=== PATIENT | male | born 1970 | race Caucasian/White ===

== ENCOUNTER → 2017-03-30 | Outpatient (CLI) | payer MEDICARE ==
--- NOTE | 2017-03-30 07:51 | MR ---
EXAMINATION TYPE: MR knee RT wo con DATE OF EXAM: 03/30/2017 7:25 AM COMPARISON: NONE HISTORY: Rt knee pain, Arthropathy TECHNIQUE: Multiplanar, multisequence imaging of the right knee is performed. FINDINGS: MEDIAL MENISCUS: Anterior and posterior horns are intact without tear. Myxoid degeneration posterior horn medial meniscus. LATERAL MENISCUS: Anterior and posterior horns are intact without tear. CRUCIATE LIGAMENTS: The anterior and posterior cruciate ligaments are intact and unremarkable. COLLATERAL LIGAMENTS: The medial collateral ligament and lateral collateral ligament complex are intact and unremarkable. EXTENSOR MECHANISM: Visualized quadriceps and patellar tendons are intact. EFFUSION: No evidence for joint effusion. POPLITEAL CYST: No popliteal/torres cyst. TRICOMPARTMENT SPACES: The tricompartment joint spaces appear within normal limits. CARTILAGE: The articular cartilage is maintained without abnormal signal or full-thickness defect. BONE MARROW SIGNAL: No focal abnormal marrow signal is appreciated: OTHER: No additional significant abnormality is appreciated. IMPRESSION: 1. Myxoid degeneration posterior horn medial meniscus. Otherwise unremarkable study.
== END | disposition home or self-care (01) ==
LOC: RADMRIMAIN 06:45
PROVIDERS: ATTEND Family Medicine
DX: M23.321 Other meniscus derangements, posterior horn of medial meniscus, right knee (principal)

== ENCOUNTER → 2018-03-23 | Outpatient (CLI) | payer MEDICARE | END | disposition home or self-care (01) | LOC: LABWHC1 16:32 | PROVIDERS: ATTEND Internal Medicine Interventional Cardiology | DX: R07.9 Chest pain, unspecified (principal) | CPT/HCPCS: 36415; 85379 ==

== ENCOUNTER → 2018-09-27 | Outpatient (CLI) | payer MEDICARE ==
--- NOTE | 2018-09-27 15:45 | US ---
EXAMINATION TYPE: US venous doppler duplex LE BI DATE OF EXAM: 09/27/2018 1:34 PM COMPARISON: NONE CLINICAL HISTORY: 47-year-old male I73.9 inter claudication, peripheral vascular disease. SIDE PERFORMED: Bilateral TECHNIQUE: The lower extremity deep venous system is examined utilizing real time linear array sonog kitty with graded compression, doppler sonography and color-flow sonography. FINDINGS: VESSELS IMAGED: External Iliac Vein (EIV) Common Femoral Vein Deep Femoral Vein Greater Saphenous Vein * Femoral Vein Popliteal Vein Small Saphenous Vein * Proximal Calf Veins (* superficial vessels) Right Leg: Negative for DVT Left Leg: Negative for DVT IMPRESSION: No evidence for DVT within the bilateral lower extremities imaged from the groin to the upper calves.
== END | disposition home or self-care (01) ==
LOC: RADUSWWP 12:57
PROVIDERS: ATTEND Family Medicine
DX: I73.9 Peripheral vascular disease, unspecified (principal); R69 Illness, unspecified
CPT/HCPCS: 93923; 93970

== ENCOUNTER 2019-04-14 07:03 | Day surgery (SDC) | payer MEDICARE ==
[2019-04-12 17:28] VITALS: BMI 29.5
[~2019-04-14 07:03] MED LIST: LACTATED RINGERS 1,000 ML IV SCH; LIDOCAINE 1% 20 ML VIAL (10MG/ML) FOR IV START INTRADERMA PRN
[2019-04-14] MEDS ORDERED: LACTATED RINGERS 1,000 ML IV ONE (07:09)
[2019-04-14 07:18] VITALS: TEMP 97.1
[2019-04-14] MEDS ORDERED: LIDOCAINE 1% INJ 10MG/ML (20 ML MDV) ONE (07:30)
[2019-04-14] MEDS ORDERED: PROPOFOL 10 MG/ML 20 ML VIAL IV ONE (07:30)
--- NOTE | 2019-04-14 08:27 | P.PCN ---
Date of Procedure: 04/14/19 Description of Procedure: BRIEF HISTORY: Patient is a 48-year-old pleasant male scheduled for an elective colonoscopy as a part of evaluation of rectal hemorrhage. He denies any prior colonoscopies, change in bowel habits, or abdominal pain. He does chronic narcotic therapy at baseline. He has reported intermittent episodes of hemorrhage over the past few months. PROCEDURE PERFORMED: Colonoscopy with biopsy and polypectomy. PREOPERATIVE DIAGNOSIS: Rectal hemorrhage. ESTIMATED BLOOD LOSS: Minimal. IV sedation per Anesthesia. PROCEDURE: After informed consent was obtained, the patient, was brought into the endoscopy unit. IV sedation was administered by Anesthesia under continuous monitoring. Digital rectal examination was normal. Initially the Olympus CF-190 flexible video colonoscope was then inserted in the rectum, gradually advanced into the cecum without any difficulty. Careful examination was performed as the scope was gradually being withdrawn. Ileocecal valve and the appendiceal orifice were visualized and appeared normal. Prep was excellent. Mucosa of the cecum, ascending colon, transverse colon, descending colon, sigmoid colon, and rectum appeared normal. Diminutive 2 mm sigmoid polyp removed with cold forcep polypectomy. A few small diverticula noted in the sigmoid colon. A 1.5 cm ulcerated area with heaped up edges noted in the rectum suspicious for a stercoral ulcer, biopsies were taken to rule out mass, polyp or other pathology. Retroflexion was performed in the rectum and no lesions were seen. The patient tolerated the procedure well. IMPRESSION: Diminutive sigmoid polyp removed with cold forceps. Sigmoid diverticulosis. Rectal ulcer with heaped up edges, suggestive of stercoral ulcer, biopsied to rule out other etiology. RECOMMENDATIONS: Findings of this examination were discussed with the patient given his . Patient should be on a stool softener. Await pathology from biopsies. Based on pathology patient will either need repeat colonoscopy biopsies are consistent with rectal polyp for further excision or colonoscopy to ensure healing of the ulcer if biopsies are negative
[2019-04-14 08:34] VITALS: BP 90/54; PULSE 58; RESP 18
== END 2019-04-14 09:23 | disposition home or self-care (01) ==
LOC: ORWHC2ENDO 07:03
PROVIDERS: ATTEND Internal Medicine
DX: K63.5 Polyp of colon (principal); K57.30 Diverticulosis of large intestine without perforation or abscess without bleeding; K62.6 Ulcer of anus and rectum; K21.9 Gastro-esophageal reflux disease without esophagitis; I25.10 Atherosclerotic heart disease of native coronary artery without angina pectoris; Z95.1 Presence of aortocoronary bypass graft; Z95.5 Presence of coronary angioplasty implant and graft; I10 Essential (primary) hypertension; F17.210 Nicotine dependence, cigarettes, uncomplicated; E78.5 Hyperlipidemia, unspecified; G62.9 Polyneuropathy, unspecified; G47.33 Obstructive sleep apnea (adult) (pediatric); Z99.89 Dependence on other enabling machines and devices; Z79.01 Long term (current) use of anticoagulants; Z79.82 Long term (current) use of aspirin; Z79.891 Long term (current) use of opiate analgesic; Z79.899 Other long term (current) drug therapy
CPT/HCPCS: 88305; 45380; J2001; J2704

== ENCOUNTER 2020-11-25 18:56 | Inpatient (IN) | payer MEDICARE ==
--- NOTE | 2020-11-25 19:48 | XR ---
EXAMINATION TYPE: XR chest 2V DATE OF EXAM: 11/25/2020 COMPARISON: 06/19/2015 HISTORY: Fever and cough TECHNIQUE: 2 views FINDINGS: Heart is normal. Lungs are clear of infiltrate. There is no heart failure. There are sterna l wires. There are no hilar masses. The bony thorax is intact. IMPRESSION: No active cardiopulmonary disease. No change.
--- NOTE | 2020-11-25 20:01 | ED ---
General Adult HPI - General Chief complaint: Fever Stated complaint: Fever, cough, runny nose Time Seen by Provider: 11/25/20 19:07 Source: patient Mode of arrival: ambulatory Limitations: no limitations - History of Present Illness Initial comments: 49-year-old male history of CAD with multiple myocardial infarctions presented to the ER today for chief complaint of fever, cough x 3 days. Patient states he has had fevers and cough for the past 2 days he states he just doesn't feel well. He denies any chest pain shortness of breath nausea vomiting rashes sore throat or ear pain. Patient denies any vomiting or diarrhea. Patient was concerned possibly of covid 19 presents emergency department for further evaluation. Pt later told nurse that he has two episode of "all bright red blood" - Related Data Home Medications Medication Instructions Recorded Confirmed HYDROcodone/APAP 10-325MG [[place] 1 tab PO TID 10/05/14 11/25/20 10-325] Isosorbide Mononitrate ER [Imdur] 60 mg PO DAILY 10/05/14 11/25/20 Nortriptyline HCl [Pamelor] 50 mg PO HS 10/05/14 11/25/20 Topiramate [Topamax] 100 mg PO BID 10/05/14 11/25/20 lisinopriL [Zestril] 2.5 mg PO DAILY 10/05/14 11/25/20 Aspirin 81 mg PO DAILY 04/12/19 11/25/20 Metoprolol Tartrate [Lopressor] 50 mg PO DAILY@1300 04/12/19 11/25/20 Metoprolol Tartrate [Lopressor] 75 mg PO BID 04/12/19 11/25/20 Morphine Sulfate ER [Ms Contin] 60 mg PO HS 04/12/19 11/25/20 Rivaroxaban [Xarelto] 2.5 mg PO BID 04/12/19 11/25/20 polyethylene glycoL 3350 [Miralax] 17 gm PO DAILY 11/25/20 11/25/20 Previous Rx's Medication Instructions Recorded Atorvastatin [Lipitor] 80 mg PO DAILY #90 tab 10/10/14 Cyclobenzaprine [Flexeril] 10 mg PO HS tab 10/10/14 Nitroglycerin Sl Tabs [Nitrostat] 0.4 mg SUBLINGUAL Q5M PRN #25 tab 10/10/14 Allergies Allergy/AdvReac Type Severity Reaction Status Date / Time No Known Allergies Allergy Verified 11/25/20 21:32 Review of Systems ROS Statement: Those systems with pertinent positive or pertinent negative responses have been documented in the HPI. ROS Other: All systems not noted in ROS Statement are negative. Past Medical History Past Medical History: Coronary Artery Disease (CAD), Chest Pain / Angina, GERD/Reflux, Hyperlipidemia, Hypertension, Myocardial Infarction ([place]), Sleep Apnea/CPAP/BIPAP Additional Past Medical History / Comment(s): Circulation issues in ed[place] legs, neuropathy feet. Chronic back pain. No tx for sleep apnea. [place] x5 Last Myocardial Infarction Date:: 2014 History of Any Multi-Drug Resistant Organisms: None Reported Past Surgical History: Adenoidectomy, Coronary Bypass/CABG, Heart Catheterization, Heart Catheterization With Stent, Hernia Repair, Joint Replacement, Orthopedic Surgery, Tonsillectomy Additional Past Surgical History / Comment(s): left knee surgery x5, left total knee replacement x2. stent x 1 last done in 09/2014, 4 vessel cabg in 2010 Past Anesthesia/Blood Transfusion Reactions: No Reported Reaction Date of Last Stent Placement:: 2014 Past Psychological History: No Psychological Hx Reported Smoking Status: Current every day smoker Past Alcohol Use History: Occasional Past Drug Use History: None Reported - Past Family History Father Family Medical History: Cancer, Myocardial Infarction ([place]) General Exam Limitations: no limitations Course Vital Signs 11/25/20 11/25/20 11/25/20 18:58 19:48 19:50 Temperature 98.7 F Pulse Rate 48 L 88 Respiratory 18 18 18 Rate Blood Pressure 100/62 104/64 O2 Sat by Pulse 96 92 L Oximetry 11/25/20 11/25/20 20:41 21:17 Temperature Pulse Rate 87 Respiratory 18 Rate Blood Pressure 102/80 O2 Sat by Pulse 95 94 L Oximetry Medical Decision Making - Medical Decision Making 49 no present to the ER today for chief complaint fever cough. Patient also endorses later that he had bright red stools patient is on 020. Patient's blood pressure on the lower aspect of normal. However hemoglobin is stable as well as BUN and creatinine. Patient is not tachycardic at this time recommend admission for Protonix, serial CBC and monitoring. Rectal revealed no gross blood, vault was relatively empty leading to a poor sample. And there was evidence of external hemorrhoid that did not appear to be inflammed nor bleeding. Dr Webster accepted admission. - Lab Data Result diagrams: 11/25/20 20:22 11/25/20 20:22 Lab Results 11/25/20 11/25/20 11/25/20 Range/Units 19:44 20:22 20:22 WBC 4.6 (3.8-10.6) k/uL RBC 4.52 (4.30-5.90) m/uL Hgb 14.8 (13.0-17.5) gm/dL Hct 43.9 (39.0-53.0) % MCV 97.0 (80.0-100.0) fL MCH 32.7 (25.0-35.0) pg MCHC 33.7 (31.0-37.0) g/dL RDW 13.2 (11.5-15.5) % Plt Count 140 L (150-450) k/uL MPV 7.0 Neutrophils % 62 % Lymphocytes % 26 % Monocytes % 5 % Eosinophils % 4 % Basophils % 1 % Neutrophils # 2.9 (1.3-7.7) k/uL Lymphocytes # 1.2 (1.0-4.8) k/uL Monocytes # 0.3 (0-1.0) k/uL Eosinophils # 0.2 (0-0.7) k/uL Basophils # 0.0 (0-0.2) k/uL PT 10.0 (9.0-12.0) sec INR 0.9 (<1.2) APTT 25.9 (22.0-30.0) sec Sodium (137-145) mmol/L Potassium (3.5-5.1) mmol/L Chloride (98-107) mmol/L Carbon Dioxide (22-30) mmol/L Anion Gap mmol/L BUN (9-20) mg/dL Creatinine (0.66-1.25) mg/dL Est GFR (CKD-EPI)AfAm (>60 ml/min/1.73 sqM) Est GFR (CKD-EPI)NonAf (>60 ml/min/1.73 sqM) Glucose (74-99) mg/dL Calcium (8.4-10.2) mg/dL Total Bilirubin (0.2-1.3) mg/dL AST (17-59) U/L ALT (4-49) U/L Alkaline Phosphatase (38-126) U/L Total Protein (6.3-8.2) g/dL Albumin (3.5-5.0) g/dL Stool Occult Blood (Negative) Coronavirus (PCR) Not Detected (Not Detectd) 11/25/20 11/25/20 Range/Units 20:22 21:22 WBC (3.8-10.6) k/uL RBC (4.30-5.90) m/uL Hgb (13.0-17.5) gm/dL Hct (39.0-53.0) % MCV (80.0-100.0) fL MCH (25.0-35.0) pg MCHC (31.0-37.0) g/dL RDW (11.5-15.5) % Plt Count (150-450) k/uL MPV Neutrophils % % Lymphocytes % % Monocytes % % Eosinophils % % Basophils % % Neutrophils # (1.3-7.7) k/uL Lymphocytes # (1.0-4.8) k/uL Monocytes # (0-1.0) k/uL Eosinophils # (0-0.7) k/uL Basophils # (0-0.2) k/uL PT (9.0-12.0) sec INR (<1.2) APTT (22.0-30.0) sec Sodium 138 (137-145) mmol/L Potassium 4.1 (3.5-5.1) mmol/L Chloride 110 H (98-107) mmol/L Carbon Dioxide 20 L (22-30) mmol/L Anion Gap 8 mmol/L BUN 13 (9-20) mg/dL Creatinine 0.98 (0.66-1.25) mg/dL Est GFR (CKD-EPI)AfAm >90 (>60 ml/min/1.73 sqM) Est GFR (CKD-EPI)NonAf >90 (>60 ml/min/1.73 sqM) Glucose 92 (74-99) mg/dL Calcium 8.7 (8.4-10.2) mg/dL Total Bilirubin 0.3 (0.2-1.3) mg/dL AST 30 (17-59) U/L ALT 20 (4-49) U/L Alkaline Phosphatase 61 (38-126) U/L Total Protein 6.2 L (6.3-8.2) g/dL Albumin 3.6 (3.5-5.0) g/dL Stool Occult Blood Positive (Negative) Coronavirus (PCR) (Not Detectd) Disposition Clinical Impression: Cough, Fever, GI bleed Disposition: ADMITTED IP TO THIS [facility] Condition: Stable Is patient prescribed a controlled substance at d/c from ED?: No Time of Disposition: 21:38 Decision to Admit Reason: Admit from EC Decision Date: 11/25/20 Decision Time: 21:38
[2020-11-25 20:29] LABS: Basophils % (A) 1 %; Eosinophils # (A) 0.2 k/uL (0-0.7); Eosinophils % (A) 4 %; HCT 43.9 % (39.0-53.0); HGB 14.8 gm/dL (13.0-17.5); Lymphocytes # (A) 1.2 k/uL (1.0-4.8); Lymphocytes % (A) 26 %; MCH 32.7 pg (25.0-35.0); MCHC 33.7 g/dL (31.0-37.0); Monocytes # (A) 0.3 k/uL (0-1.0); Monocytes % (A) 5 %; Neutrophils # (A) 2.9 k/uL (1.3-7.7); Neutrophils % (A) 62 %; Platelet Count 140 k/uL (150-450); RBC 4.52 m/uL (4.30-5.90); RDW 13.2 % (11.5-15.5); WBC 4.6 k/uL (3.8-10.6)
[2020-11-25 20:40] LABS: INR 0.9 (<1.2); Partial Thromboplastin Time 25.9 sec (22.0-30.0)
[2020-11-25 20:46] LABS: ALT 20 U/L (4-49); AST 30 U/L (17-59); African American GFR (CKD) >90 (>60 ml/min/1.73 sqM); Albumin 3.6 g/dL (3.5-5.0); Alkaline Phosphatase 61 U/L (38-126); Anion Gap 8 mmol/L; Blood Urea Nitrogen 13 mg/dL (9-20); Calcium 8.7 mg/dL (8.4-10.2); Carbon Dioxide 20 mmol/L (22-30); Chloride 110 mmol/L (98-107); Glucose 92 mg/dL (74-99); Non-African American GFR(CKD) >90 (>60 ml/min/1.73 sqM); Potassium 4.1 mmol/L (3.5-5.1); Sodium 138 mmol/L (137-145); Total Bilirubin 0.3 mg/dL (0.2-1.3); Total Protein 6.2 g/dL (6.3-8.2)
[2020-11-25] MEDS ORDERED: PANTOPRAZOLE 40 MG/10 ML VIAL IVP STA (20:49)
[2020-11-25] MEDS ORDERED: NALOXONE 0.4 MG/ML 1 ML VIAL IV PRN (21:36)
[2020-11-26] MEDS: HYDROcodone/APAP 10-325MG 1 EACH TAB PO SCH ×4 (02:41→20:23)
[2020-11-26] MEDS: TOPIRAMATE 100 MG TAB PO SCH ×3 (02:41→20:22)
[2020-11-26] MEDS: MORPHINE SULFATE ER 60 MG TABLET PO SCH ×2 (02:41→20:23)
[2020-11-26] MEDS: CYCLOBENZAPRINE 10 MG TAB PO SCH ×2 (02:41→20:22)
[2020-11-26] MEDS: NORTRIPTYLINE 25 MG CAP PO SCH ×2 (02:42→20:22)
--- NOTE | 2020-11-26 02:58 | P.HPIM ---
History of Present Illness H&P Date: 11/25/20 Chief Complaint: rectal bleeding 49 year old male with migrane, chronic back pain , CAD s/p bypass and stents, Hypertension patient coming in for GI bleeding over the past couple days , he reported two episodes of bloody bowel movements , no significant abd pain , no vomiting or nausea, denies any urinary changes, no fever or chills, he takes xarelto , aspirin , but denies any NSAID , and only drinks occasionally. he denies any similar episodes in the past. he does reports subjective weight loss. he had Cscope done in the past, and was told that he had polyps but no malignancy reported. he also reports cough and SOB, he feels congested ,but no phlegm production. no hemoptysis no fever or chills, no chest pain patient has chronic low back pain for which he takes morphine pills and norco in the ED hemoglobin was stable , covid negative, CXR no acute pathology Review of Systems Pertinent positives as noted in HPI. All other systems were reviewed and are negative Past Medical History Past Medical History: Coronary Artery Disease (CAD), Chest Pain / Angina, GERD/Reflux, Hyperlipidemia, Hypertension, Myocardial Infarction ([place]), Sleep Apnea/CPAP/BIPAP Additional Past Medical History / Comment(s): Circulation issues in [place] legs, neuropathy feet. Chronic back pain. No tx for sleep apnea. [place] x5 Last Myocardial Infarction Date:: 2014 History of Any Multi-Drug Resistant Organisms: None Reported Past Surgical History: Adenoidectomy, Coronary Bypass/CABG, Heart Catheterization, Heart Catheterization With Stent, Hernia Repair, Joint Replacement, Orthopedic Surgery, Tonsillectomy Additional Past Surgical History / Comment(s): left knee surgery x5, left total knee replacement x2. stent x 1 last done in 09/2014, 4 vessel cabg in 2010 Past Anesthesia/Blood Transfusion Reactions: No Reported Reaction Date of Last Stent Placement:: 2014 Past Psychological History: No Psychological Hx Reported Smoking Status: Current every day smoker Past Alcohol Use History: Occasional Additional Past Alcohol Use History / Comment(s): Smoking since 2016 now, 1/2 ppd, hx smoked for 27 years, quit for 5 years Past Drug Use History: None Reported - Past Family History Father Family Medical History: Cancer, Myocardial Infarction ([place]) Medications and Allergies Home Medications Medication Instructions Recorded Confirmed Type HYDROcodone/APAP 10-325MG [[place] 1 tab PO TID 10/05/14 11/25/20 History 10-325] Isosorbide Mononitrate ER [Imdur] 60 mg PO DAILY 10/05/14 11/25/20 History Nortriptyline HCl [Pamelor] 50 mg PO HS 10/05/14 11/25/20 History Topiramate [Topamax] 100 mg PO BID 10/05/14 11/25/20 History lisinopriL [Zestril] 2.5 mg PO DAILY 10/05/14 11/25/20 History Atorvastatin [Lipitor] 80 mg PO DAILY #90 tab 10/10/14 11/25/20 Rx Cyclobenzaprine [Flexeril] 10 mg PO HS tab 10/10/14 11/25/20 Rx Nitroglycerin Sl Tabs [Nitrostat] 0.4 mg SUBLINGUAL Q5M PRN #25 tab 10/10/14 11/25/20 Rx Aspirin 81 mg PO DAILY 04/12/19 11/25/20 History Metoprolol Tartrate [Lopressor] 50 mg PO DAILY@1300 04/12/19 11/25/20 History Metoprolol Tartrate [Lopressor] 75 mg PO BID 04/12/19 11/25/20 History Morphine Sulfate ER [Ms Contin] 60 mg PO HS 04/12/19 11/25/20 History Rivaroxaban [Xarelto] 2.5 mg PO BID 04/12/19 11/25/20 History polyethylene glycoL 3350 [Miralax] 17 gm PO DAILY 11/25/20 11/25/20 History Allergies Allergy/AdvReac Type Severity Reaction Status Date / Time No Known Allergies Allergy Verified 11/25/20 21:32 Physical Exam Vitals: Vital Signs Temp Pulse Resp BP Pulse Ox 11/25/20 22:28 98.7 F 87 18 102/80 94 L 11/25/20 21:17 87 18 102/80 94 L 11/25/20 20:41 95 11/25/20 19:50 18 11/25/20 19:48 88 18 104/64 92 L 11/25/20 18:58 98.7 F 48 L 18 100/62 96 Intake and Output 11/25/20 11/25/20 11/26/20 14:59 22:59 06:59 Other: Weight 88.451 kg 88.451 kg Constitutional: No acute distress, conversant, pleasant Eyes: Anicteric sclerae, moist conjunctiva, Pupils equal round reactive to light ENMT: NC/AT Oropharynx clear, no erythema, or exudates Neck: Supple, FROM, no masses, or JVD No carotid bruits No thyromegaly Lungs: Clear to auscultation Clear to percussion Normal respiratory effort, no accessory muscle use Cardiovascular: Heart regular in rate and rhythm, No murmurs, gallops, or rubs No peripheral edema Abdominal: Soft Discomfort to deep palpation, no guarding, rebound or rigidity Abdomen moving with respiration Normoactive bowel sounds No hepatomegaly, No splenomegaly No palpable mass No abdominal wall hernia noted Skin: Normal temperature, tone, texture, turgor No induration No subcutaneous nodules No rash, lesions No ulcers Extremities: No digital cyanosis No clubbing Pedal pulses intact and symmetrical Radial pulses intact and symmetrical No calf tenderness Psychiatric: Alert and oriented to person, place and time Appropriate affect fair judgement Neuro Muscles Strength 5/5 in all 4 extremities Sensation to light touch grossly present throughout Cranial nerves II-XII grossly intact No focal sensory deficits Lymphatics: no palpable cervical or supraclavicular , or inguinal lymph nodes Results CBC & Chem 7: 11/25/20 20:22 11/25/20 20:22 Labs: Abnormal Lab Results - Last 24 Hours (Table) 11/25/20 11/25/20 Range/Units 20:22 20:22 Plt Count 140 L (150-450) k/uL Chloride 110 H (98-107) mmol/L Carbon Dioxide 20 L (22-30) mmol/L Total Protein 6.2 L (6.3-8.2) g/dL Thrombosis Risk Factor Assmnt - Choose All That Apply Any of the Below Risk Factors Present?: Yes Each Factor Represents 1 point: Acute MS, Age 41-60 years, Obesity (BMI >25) Other Risk Factors: No Other congenital or acquired thrombophilia - If yes, enter type in comment: No Thrombosis Risk Factor Assessment Total Risk Factor Score: 3 Thrombosis Risk Factor Assessment Level: Moderate Risk Assessment and Plan Assessment: Rectal bleeding Nothing by mouth PPI IV fluid hydration No NSAIDs GI consult Monitor hemoglobin hold aspirin and Xarelto acute bronchitis CXR negative covid negative zpack 500 mg for 3 days Conditions chronic low back pain Hypertension Hyperlipidemia CHF Coronary artery disease status post stents and bypass resume home meds, xarelto and aspirin on hold full code DVT prophylaxis: mechanical Discussed with: Patient, ER, RN Anticipated length of stay < than [address]: home A total of 65 minutes was spent on the care of this complex patient more than 50% of the time was spent in counseling and care coordination.
[2020-11-26] MEDS: ISOSORBIDE MONONITRATE ER 60 MG TAB.ER.24H PO SCH (08:08)
[2020-11-26] MEDS: PANTOPRAZOLE 40 MG TABLET PO SCH ×2 (08:08→16:36)
[2020-11-26] MEDS: ATORVASTATIN 80 MG TAB PO SCH (08:08)
[2020-11-26] MEDS: METOPROLOL TARTRATE 25 MG TAB PO SCH ×2 (08:08→20:22)
[2020-11-26] MEDS: AZITHROMYCIN 500 MG TAB PO SCH (08:09)
[2020-11-26] MEDS: polyethylene glycoL 3350 17 GM POWD.PACK PO SCH (08:10)
--- NOTE | 2020-11-26 09:04 | P.PN ---
Subjective Progress Note Date: 11/26/20 Feels okay, no further bleeding, no chest pain no abdominal pain no nausea no vomiting no dizziness no shortness of breath Objective - Vital Signs Vital signs: Vital Signs Temp 98.5 F 11/26/20 07:57 Pulse 104 H 11/26/20 07:57 Resp 20 11/26/20 07:57 BP 113/69 11/26/20 07:57 Pulse Ox 94 L 11/26/20 07:57 Intake & Output 11/25/20 11/26/20 11/26/20 18:59 06:59 18:59 Weight 88.451 kg 88.451 kg Other: Voiding Method Toilet - Exam Constitutional: No acute distress, conversant, pleasant Eyes: Anicteric sclerae, moist conjunctiva ENMT: NC/AT,Oropharynx clear, no erythema, exudates Neck:Supple, FROM, no masses Lungs: Clear to auscultation, Clear to percussion, Normal respiratory effort, no accessory muscle use Cardiovascular: Heart regular in rate and rhythm, No murmurs, gallops, or rubs no peripheral edema Abdominal: Soft Nontender, nom distended, no guarding, no rebound or rigidity, Normoactive bowel sounds Skin: Normal temperature Extremities:No digital cyanosis No clubbing, Pedal pulses intact and symmetrical Radial pulses intact and symmetrical Normal gait and station, No calf tenderness Psychiatric: Alert and oriented to person, place and time, Appropriate affect Intact judgement Neuro: Muscles Strength 5/5 in all 4 extremities, Sensation to light touch grossly present throughout, Cranial nerves II-XII grossly intact - Labs CBC & Chem 7: 11/25/20 20:22 11/25/20 20:22 Labs: Abnormal Lab Results - Last 24 Hours (Table) 11/25/20 11/25/20 Range/Units 20:22 20:22 Plt Count 140 L (150-450) k/uL Chloride 110 H (98-107) mmol/L Carbon Dioxide 20 L (22-30) mmol/L Total Protein 6.2 L (6.3-8.2) g/dL Assessment and Plan Plan: Rectal bleeding, unknown etiology Monitor H&H PPI IV fluids No NSAIDs GI consult hold aspirin and Xarelto acute bronchitis , unspecified etiology CXR negative covid negative zpack 500 mg for 3 days Conditions chronic low back pain Hypertension Hyperlipidemia CHF, chronic unspecified if systolic or diastolic Coronary artery disease status post stents and bypass resume home meds, xarelto and aspirin on hold full code DVT prophylaxis: mechanical Discussed with: Patient Anticipated length of stay < than [address]: home once clinically better
[2020-11-26] MEDS: IOPAMIDOL CONTRAST (ORAL USE) VIAL PO PRN ×2 (10:42→11:44)
[2020-11-26] MEDS: NICOTINE 21MG/24HR PATCH TRANSDERM SCH (10:44)
[2020-11-26 11:08] LABS: Basophils % (A) 1 %; Eosinophils # (A) 0.2 k/uL (0-0.7); Eosinophils % (A) 4 %; HCT 46.7 % (39.0-53.0); HGB 15.1 gm/dL (13.0-17.5); Lymphocytes # (A) 1.6 k/uL (1.0-4.8); Lymphocytes % (A) 37 %; MCH 31.7 pg (25.0-35.0); MCHC 32.3 g/dL (31.0-37.0); MCV 97.9 fL (80.0-100.0); Mean Platelet Volume 7.5; Monocytes # (A) 0.2 k/uL (0-1.0); Monocytes % (A) 4 %; Neutrophils # (A) 2.4 k/uL (1.3-7.7); Neutrophils % (A) 52 %; Platelet Count 142 k/uL (150-450); RBC 4.77 m/uL (4.30-5.90); RDW 13.8 % (11.5-15.5); WBC 4.5 k/uL (3.8-10.6)
[2020-11-26] MEDS ORDERED: IOPAMIDOL CONTRAST (ORAL USE) VIAL PO PRN (11:42)
[2020-11-26] MEDS: METOPROLOL TARTRATE 50 MG TAB PO SCH (11:43)
--- NOTE | 2020-11-26 12:53 | CT ---
EXAMINATION TYPE: CT ChestAbdPelvis w con DATE OF EXAM: 11/26/2020 COMPARISON: CTA chest July 2012. HISTORY: Productive cough, possible GI bleed, rectal bleeding CT DLP: 1221.7 mGycm. Automated Exposure Control for Dose Reduction was Utilized. CONTRAST: CT scan of the thorax, abdomen and pelvis is performed with oral and with IV Contrast, patient inject ed with 100 mL of Isovue 300. FINDINGS: LUNGS: Slightly elevated left hemidiaphragm redemonstrated. [id number] underlying emphysematous change redemonstrated. Scattered thin-walled cysts with posterior medial moderate bibasilar scarring . No pleural effusion or pneumothorax MEDIASTINUM: There are no greater than 1 cm hilar or mediastinal lymph nodes. No cardiomegaly or pe ricardial effusion is seen. Coronary artery calcification. Overlying Sternal wires. LIVER/GB: No significant abnormality is appreciated. PANCREAS: No significant abnormality is seen. SPLEEN: No significant abnormality is seen. ADRENALS: No significant abnormality is seen. KIDNEYS: Small nonobstructing bilateral renal calculi. Symmetric cortical medullary uptake and excret ion without hydronephrosis seen bilaterally. For reference there is 7 mm calculus right kidney upper to midpole level axial image 70. BOWEL: Oral contrast reaches level of right colon making evaluation of distal bowel suboptimal. No chatman spicious small or large bowel dilatation. Moderate fecal prominence in the right and transverse colon . GENITAL ORGANS: Normal sized prostate. Scattered bilateral pelvic phleboliths. LYMPH NODES: No greater than 1cm abdominal or pelvic lymph nodes are appreciated. OSSEOUS STRUCTURES: Facet arthropathy lower lumbar spine. OTHER: No significant additional abnormality is seen. IMPRESSION: Moderate colonic fecal stasis. No bowel obstruction.
--- NOTE | 2020-11-26 13:58 | P.CONS ---
History of Present Illness - Reason for Consult Consult date: 11/26/20 GI bleed Requesting physician: Liz Webster - Chief Complaint Cough, fever - History of Present Illness This is a 49-year-old male patient who presented to the emergency room with complaints of a cough and fever 3 days. States he has cough and fatigue since and a fever yesterday greater than 102. He was concerned of possible COVID-19 infection so he presented to the emergency room. He states he's had no sick contacts. He also mentioned when he came into the emergency room and he had rectal bleeding for the last 2 days. Yesterday at 1800 was his last episode of blood in his stool. He states that he had bright red blood per rectum. His past medical history includes coronary artery disease, 1PPD smoker, GERD, hyperlipidemia, hypertension, myocardial infarction, and sleep apnea. He does take Xarelto for his heart disease, last dose taken on 11/25/2020. He also has a history of rectal bleeding in the past and underwent colonoscopy in April 2019 with with findings that include a sigmoid polyp with polypectomy, sigmoid diverticulosis, and a rectal ulcer with heaped up edges suggestive of stercotal ulcer. Biopsy results came back as a sigmoid colon polyp hyperplastic polyp. Rectal ulcer adenoma with high-grade dysplasia versus superficial invasive adenocarcinoma with rebiopsy suggested. The patient had follow up with PCP Dr. Castro and was informed of biopsies and need for follow up colonosocopy. However the patient never followed up for an appointment or repeat colonoscopy and stated he did not follow up because of insurance. Admission labs included WBC 4.6, hemoglobin 14.8, hematocrit 43.9, platelets 240,000, INR 0.9. Total bilirubin 0.3, alkaline phosphatase 61, AST 30, ALT 20. Positive stool occult blood. COVID-19 PCR negative. Review of Systems REVIEW OF SYSTEMS: CARDIOPULMONARY: No chest pain or shortness of breath. Cough. Gastrointestinal: Abdominal pain, cramping. Positive melena, bright red blood per rectum. No nausea or vomiting. No hematemesis, coffee-ground emesis. GENITOURINARY: No dysuria or hematuria. MUSCULOSKELETAL: Reports normal range of motion., Joint pain. SKIN: No rashes. No jaundice. ENDOCRINE: Unremarkable. PSYCHIATRIC: Unremarkable. NEUROLOGY: No change in mental status. Denies dizziness, headache. ENT: Vision unremarkable. CONSTITUTIONAL: No recent weight loss. Positive fever. Past Medical History Past Medical History: Coronary Artery Disease (CAD), Chest Pain / Angina, GERD/Reflux, Hyperlipidemia, Hypertension, Myocardial Infarction ([place]), Sleep Apnea/CPAP/BIPAP Additional Past Medical History / Comment(s): Circulation issues in [place] legs, neuropathy feet. Chronic back pain. No tx for sleep apnea. [place] x5 Last Myocardial Infarction Date:: 2014 History of Any Multi-Drug Resistant Organisms: None Reported Past Surgical History: Adenoidectomy, Coronary Bypass/CABG, Heart Catheterization, Heart Catheterization With Stent, Hernia Repair, Joint Rep lacement, Orthopedic Surgery, Tonsillectomy Additional Past Surgical History / Comment(s): left knee surgery x5, left total knee replacement x2. stent x 1 last done in 09/2014, 4 vessel cabg in 2010 Past Anesthesia/Blood Transfusion Reactions: No Reported Reaction Date of Last Stent Placement:: 2014 Past Psychological History: No Psychological Hx Reported Smoking Status: Current every day smoker Past Alcohol Use History: Occasional Additional Past Alcohol Use History / Comment(s): Smoking since 2016 now, 1/2 ppd, hx smoked for 27 years, quit for 5 years Past Drug Use History: None Reported - Past Family History Father Family Medical History: Cancer, Myocardial Infarction ([place]) Medications and Allergies Home Medications Medication Instructions Recorded Confirmed Type HYDROcodone/APAP 10-325MG [[place] 1 tab PO TID 10/05/14 11/25/20 History 10-325] Isosorbide Mononitrate ER [Imdur] 60 mg PO DAILY 10/05/14 11/25/20 History Nortriptyline HCl [Pamelor] 50 mg PO HS 10/05/14 11/25/20 History Topiramate [Topamax] 100 mg PO BID 10/05/14 11/25/20 History lisinopriL [Zestril] 2.5 mg PO DAILY 10/05/14 11/25/20 History Atorvastatin [Lipitor] 80 mg PO DAILY #90 tab 10/10/14 11/25/20 Rx Cyclobenzaprine [Flexeril] 10 mg PO HS tab 10/10/14 11/25/20 Rx Nitroglycerin Sl Tabs [Nitrostat] 0.4 mg SUBLINGUAL Q5M PRN #25 tab 10/10/14 11/25/20 Rx Aspirin 81 mg PO DAILY 04/12/19 11/25/20 History Metoprolol Tartrate [Lopressor] 50 mg PO DAILY@1300 04/12/19 11/25/20 History Metoprolol Tartrate [Lopressor] 75 mg PO BID 04/12/19 11/25/20 History Morphine Sulfate ER [Ms Contin] 60 mg PO HS 04/12/19 11/25/20 History Rivaroxaban [Xarelto] 2.5 mg PO BID 04/12/19 11/25/20 History polyethylene glycoL 3350 [Miralax] 17 gm PO DAILY 11/25/20 11/25/20 History Allergies Allergy/AdvReac Type Severity Reaction Status Date / Time No Known Allergies Allergy Verified 11/25/20 21:32 Physical Exam Vitals: Vital Signs Temp Pulse Pulse Resp BP BP Pulse Ox 11/26/20 07:57 98.5 F 104 H 20 113/69 94 L 11/26/20 07:45 20 11/26/20 02:25 99.0 F 100 18 145/87 97 11/25/20 23:18 18 11/25/20 23:10 98.5 F 75 18 114/74 100 11/25/20 22:28 98.7 F 87 18 102/80 94 L 11/25/20 21:17 87 18 102/80 94 L 11/25/20 20:41 95 11/25/20 19:50 18 11/25/20 19:48 88 18 104/64 92 L 11/25/20 18:58 98.7 F 48 L 18 100/62 96 Intake and Output 11/25/20 11/26/20 11/26/20 22:59 06:59 14:59 Other: Voiding Method Toilet Toilet Weight 88.451 kg 88.451 kg General appearance: The patient is alert, oriented, appears in no acute distress. HET: Head is normocephalic and atraumatic. Neck: Supple without lymphadenopathy. Trachea midline. Heart: S1 S2. Regular rate and rhythm. Lungs: Clear to auscultation Abdomen: Soft, tenderness in right lower quadrant, nondistended with bowel sounds. Guarding or rigidity. Extremities: Normal skin color and turgor. Pedal edema. Neurological: No focal deficits. Alert and oriented 3. Results CBC & Chem 7: 11/26/20 10:48 11/25/20 20:22 Labs: Abnormal Lab Results - Last 24 Hours (Table) 11/25/20 11/25/20 11/26/20 Range/Units 20:22 20:22 10:48 Plt Count 140 L 142 L (150-450) k/uL Chloride 110 H (98-107) mmol/L Carbon Dioxide 20 L (22-30) mmol/L Total Protein 6.2 L (6.3-8.2) g/dL CT scan - abdomen: report reviewed (CT chest abdomen and pelvis impression states moderate colonic fecal stasis. No bowel obstruction.) Assessment and Plan (1) Bright red blood per rectum Narrative/Plan: 49-year-old male patient who presented to the emergency department with complaints of cough and fever for 3 days duration. He also did and when he came in that he had 2 episodes of premature apply per rectum, last one being yesterday around X o'clock p.m. He states he did get some mild abdominal pain and cramping episodes of bleeding. He had a previous colonoscopy in April 2019 per rectal hemorrhage, with findings of a sigmoid polyp, sigmoid diverticulosis, and rectal ulcer suggestive of stercoral ulcer. Biopsy results of sigmoid colon polyp came back as a hyperplastic polyp. Rectal ulcer came back as adenoma with high-grade dysplasia versus superficial invasive adenocarcinoma with rebiopsy suggested. The patient had a follow-up appointment mentation to repeat the colonoscopy and biopsy, however patient never had any further follow-up appointment and no repeat colonoscopy. CT of the chest abdomen and pelvis showed moderate colonic fecal stasis. No bowel obstruction. Possible etiologies of bleeding could again be from rectal ulcer, AVM, articular bleed, or other possible etiology also need to consider neoplasm as the differential. Recommend repeat colonoscopy, patient will be a bowel prep and be scheduled tomorrow. Current Visit: Yes Status: Acute Code(s): K62.5 - HEMORRHAGE OF ANUS AND RECTUM SNOMED Code(s): 08559107 (2) Positive fecal occult blood test Current Visit: Yes Status: Acute Code(s): R19.5 - OTHER FECAL ABNORMALITIES SNOMED Code(s): 53283328 (3) Cough Current Visit: Yes Status: Acute Code(s): R05 - COUGH SNOMED Code(s): 99275837 (4) Fever Current Visit: Yes Status: Acute Code(s): R50.9 - FEVER, UNSPECIFIED SNOMED Code(s): 000608187 Plan: 1. Continue symptomatic and supportive care 2. CT of chest abdomen and pelvis ordered and reviewed 3. Clear liquid diet, nothing by mouth after midnight 4. Bowel prep this evening 5. Patient will be scheduled for a colonoscopy tomorrow, discussed with patient details and risks of procedure, he verbalized understanding and agreeable to proceed with colonoscopy. 6. Repeat daily CBC, transfuse for hemoglobin less than 7 7. Continue daily bowel regimen for constipation Thank you for this consultation, we will continue to follow Dr. Epperson I agree with the dictator's note, documented as a scribe by Jocelin ALVARENGA .
[2020-11-26] MEDS ORDERED: bisacodyL 5 MG TABLET.DR PO STA (14:36)
[2020-11-26] MEDS ORDERED: PEG 3350-NA SULF,BICARB,CL/KCL 4,000 ML BOTTLE PO ONE (17:00)
[2020-11-26] MEDS: LACTATED RINGERS 1,000 ML IV SCH (20:12)
[2020-11-27] MEDS ORDERED: ONDANSETRON 4 MG/2 ML VIAL IVP PRN (07:00)
[2020-11-27] MEDS: METOPROLOL TARTRATE 25 MG TAB PO SCH ×2 (07:08→20:51)
[2020-11-27] MEDS: ATORVASTATIN 80 MG TAB PO SCH (07:09)
[2020-11-27] MEDS: AZITHROMYCIN 500 MG TAB PO SCH (07:09)
[2020-11-27] MEDS: NICOTINE 21MG/24HR PATCH TRANSDERM SCH (07:10)
[2020-11-27] MEDS: polyethylene glycoL 3350 17 GM POWD.PACK PO SCH (07:10)
[2020-11-27] MEDS: ISOSORBIDE MONONITRATE ER 60 MG TAB.ER.24H PO SCH (07:10)
[2020-11-27] MEDS: PANTOPRAZOLE 40 MG TABLET PO SCH ×2 (07:10→16:53)
[2020-11-27] MEDS: TOPIRAMATE 100 MG TAB PO SCH ×2 (07:10→20:50)
[2020-11-27] MEDS: HYDROcodone/APAP 10-325MG 1 EACH TAB PO SCH ×3 (07:10→20:50)
[2020-11-27 09:46] LABS: Basophils # (A) 0.02 X 10*3/uL (0.00-0.10); Basophils % (A) 0.3 %; Eosinophils # (A) 0.08 X 10*3/uL (0.04-0.35); Eosinophils % (A) 1.4 %; HCT 45.9 % (39.6-50.0); Lymphocytes # (A) 1.96 X 10*3/uL (0.90-5.00); Lymphocytes % (A) 33.3 %; MCH 31.9 pg (27.0-32.0); MCHC 32.7 g/dL (32.0-37.0); MCV 97.7 fL (80.0-97.0); Mean Platelet Volume 9.7 fL (9.5-12.2); Monocytes # (A) 0.52 X 10*3/uL (0.20-1.00); Monocytes % (A) 8.8 %; Neutrophils # (A) 3.29 X 10*3/uL (1.80-7.70); Neutrophils % (A) 55.9 %; Platelet Count 145 X 10*3/uL (140-440); RDW 13.8 % (11.5-14.5); WBC 5.89 X 10*3/uL (4.50-10.00)
--- NOTE | 2020-11-27 11:29 | P.PN ---
<David Canales - Last Filed: 11/27/20 10:53> Subjective Progress Note Date: 11/27/20 Hospital course: Patient is a 49-year-old male with a past medical history of CAD with previous RI status post quadruple bypass and stent placement on Xarelto and aspirin, hypertension, hyperlipidemia, and obstructive sleep apnea. He presented to the hospital on 11/25/20 with a chief complaint of rectal bleeding. CT abdomen and pelvis revealed moderate colonic fecal stasis with no bowel obstruction. Hemoglobin has been stable throughout admission with initial hemoglobin of 14.8, repeat 15.1, and currently 15.0. CBC, CMP, and coagulation profille showing no significant abnormalities. Stool occult was positive and Covid PCR is negative. Xarelto and aspirin were held. Patient continues to have episodes of hematochezia. He is scheduled to undergo colonoscopy this afternoon at 1 PM. Physical exam: Patient seen and fully evaluated at the bedside this morning. He reports mild abdominal discomfort left upper epigastric and right upper quadrants. States he had another large episode of hematochezia overnight. He denies having any chest pain, palpitations, shortness of breath, or experiencing any nausea or vomiting. Patient scheduled to undergo colonoscopy later this afternoon. General: non toxic, no distress, appears at stated age Derm: warm, dry Head: atraumatic, normocephalic, symmetric Eyes: EOMI, no lid lag, anicteric sclera Mouth: no lip lesion, mucus membranes moist Cardiovascular: S1S2 reg, no murmur, gallop, or rub. Positive posterior tibial pulses bilaterally, cap refill less than 2 seconds. Lungs: Respirations even, regular, and unlabored on room air. Lungs CTA bilaterally with the exception of mild expiratory wheezes. No accessory muscle use. Abdominal: soft, nontender to palpation, no guarding, no appreciable organomegaly Ext: no gross muscle atrophy, no edema, no contractures Neuro: CN II-XI grossly intact, no focal neuro deficits Psych: Alert, oriented, appropriate affect Plan of care: Lower GI bleed -Gastroenterology following with plans for colonoscopy this afternoon. -CT abdomen and pelvis revealed moderate colonic fecal stasis with no bowel obstruction -Monitor H&H every 6 hours x 4 and transfuse as needed for hemoglobin less than 7. Hemoglobin has been stable currently 15.0. -Protonix 40 mg twice daily. -Nothing by mouth until cleared by GI. -SCDs for DVT prophylaxis. Bronchitis with cough and fever, likely acute exacerbation of chronic bronchitis with long-standing history of an current use of cigarette smoking -Chest x-ray negative for acute cardiopulmonary process. -Azithromycin 500 mg 3 doses Nicotine dependence -Nicotine patch -Continued education and encouragement on the benefits of smoking cessation and the risks of continued use. Hypertension -Monitor vital signs and continue daily medication regimen with Imdur, lisinopril, and metoprolol. Hyperlipidemia -Continue daily medication regimen with atorvastatin. History of CAD status post quadruple bypass and stent placement -Holding aspirin and Xarelto secondary to GI bleed. -Continue daily medication regimen with atorvastatin, Imdur, lisinopril, and metoprolol. CODE STATUS: Full code DVT prophylaxis: SCDs Discussed with: Patient and RN Anticipated discharge date:Clinical course to determine Anticipated discharge place: Home A total of 45 minutes was spent on the care of this complex patient more than 50% of the time was spent in counseling and care coordination. Objective - Vital Signs Vital signs: Vital Signs Temp 98.4 F 11/27/20 08:00 Pulse 107 H 11/27/20 08:00 Resp 18 11/27/20 08:00 BP 112/71 11/27/20 08:00 Pulse Ox 90 L 11/27/20 08:00 Intake & Output 11/26/20 11/27/20 11/27/20 18:59 06:59 18:59 Other: Voiding Method Toilet Toilet Toilet # Voids 3 # Bowel Movements 2 - Labs CBC & Chem 7: 11/27/20 05:48 11/25/20 20:22 Labs: Abnormal Lab Results - Last 24 Hours (Table) 11/26/20 11/27/20 Range/Units 10:48 05:48 MCV 97.7 H (80.0-97.0) fL Plt Count 142 L (150-450) k/uL <Opal Montelongo - Last Filed: 11/27/20 13:34> Objective - Vital Signs Vital signs: Vital Signs Temp 98.4 F 11/27/20 08:00 Pulse 107 H 11/27/20 08:00 Resp 18 11/27/20 08:00 BP 112/71 11/27/20 08:00 Pulse Ox 90 L 11/27/20 08:00 Intake & Output 11/26/20 11/27/20 11/27/20 18:59 06:59 18:59 Intake Total 400 Balance 400 Intake: IV 400 Other: Voiding Method Toilet Toilet Toilet # Voids 3 # Bowel Movements 2 - Labs CBC & Chem 7: 11/27/20 05:48 11/25/20 20:22 Labs: Abnormal Lab Results - Last 24 Hours (Table) 11/27/20 Range/Units 05:48 MCV 97.7 H (80.0-97.0) fL Assessment and Plan Assessment: I discussed the care with David Canales NP and reviewed the findings and plan as documented in the note above. I did not physically speak with or examine the patient on this date.
[2020-11-27] MEDS ORDERED: PROPOFOL 10 MG/ML 20 ML VIAL IV ONE (12:56)
[2020-11-27] MEDS ORDERED: LIDOCAINE 1% INJ 10MG/ML (20 ML MDV) ONE (12:56)
[2020-11-27] MEDS ORDERED: PHENYLEPHRINE-0.9% NACL SYG 1,000 MCG/10 ML SYRINGE ONE (12:56)
[2020-11-27] MEDS ORDERED: LACTATED RINGERS 1,000 ML IV ONE (13:00)
[2020-11-27 13:38] LABS: Albumin 4.1 g/dL (3.80-4.90); Albumin/Globulin Ratio 1.86 (1.60-3.17); Anion Gap 10.3 mmol/L (4.00-12.00); Calcium 8.4 mg/dL (8.7-10.3); Carbon Dioxide 21.7 mmol/L (21.6-31.8); Globulin 2.2 g/dL (1.6-3.3); Potassium 3.9 mmol/L (3.5-5.5); Total Bilirubin 0.3 mg/dL (0.3-1.2); Total Protein 6.3 g/dL (6.2-8.2)
[2020-11-27] MEDS: METOPROLOL TARTRATE 50 MG TAB PO SCH (13:54)
--- NOTE | 2020-11-27 14:22 | P.GSCN ---
History of Present Illness Consult date: 11/27/20 History of present illness: This is a 49-year-old male who presented to the hospital with a chief complaint of fatigue and cough. He also had bright red bleeding per rectum. 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 He underwent colonoscopy earlier today which showed a ulcerated lesion 3 cm from the anal verge with biopsy and tattooing. Patient did undergo CT chest abdomen and pelvis which did not show any signs concerning for metastasis at this time. Past Medical History Past Medical History: Coronary Artery Disease (CAD), Chest Pain / Angina, GERD/Reflux, Hyperlipidemia, Hypertension, Myocardial Infarction ([place]), Sleep Apnea/CPAP/BIPAP Additional Past Medical History / Comment(s): Circulation issues in [place] legs, neuropathy feet. Chronic back pain. No tx for sleep apnea. [place] x5 Last Myocardial Infarction Date:: 2014 History of Any Multi-Drug Resistant Organisms: None Reported Past Surgical History: Adenoidectomy, Coronary Bypass/CABG, Heart Catheterization, Heart Catheterization With Stent, Hernia Repair, Joint Replacement, Orthopedic Surgery, Tonsillectomy Additional Past Surgical History / Comment(s): left knee surgery x5, left total knee replacement x2. stent x 1 last done in 09/2014, 4 vessel cabg in 2010 Past Anesthesia/Blood Transfusion Reactions: No Reported Reaction Date of Last Stent Placement:: 2014 Past Psychological History: No Psychological Hx Reported Smoking Status: Current every day smoker Past Alcohol Use History: Occasional Additional Past Alcohol Use History / Comment(s): Smoking since 2016 now, 1/2 ppd, hx smoked for 27 years, quit for 5 years Past Drug Use History: None Reported - Past Family History Father Family Medical History: Cancer, Myocardial Infarction ([place]) Medications and Allergies Home Medications Medication Instructions Recorded Confirmed Type HYDROcodone/APAP 10-325MG [[place] 1 tab PO TID 10/05/14 11/25/20 History 10-325] Isosorbide Mononitrate ER [Imdur] 60 mg PO DAILY 10/05/14 11/25/20 History Nortriptyline HCl [Pamelor] 50 mg PO HS 10/05/14 11/25/20 History Topiramate [Topamax] 100 mg PO BID 10/05/14 11/25/20 History lisinopriL [Zestril] 2.5 mg PO DAILY 10/05/14 11/25/20 History Atorvastatin [Lipitor] 80 mg PO DAILY #90 tab 10/10/14 11/25/20 Rx Cyclobenzaprine [Flexeril] 10 mg PO HS tab 10/10/14 11/25/20 Rx Nitroglycerin Sl Tabs [Nitrostat] 0.4 mg SUBLINGUAL Q5M PRN #25 tab 10/10/14 11/25/20 Rx Aspirin 81 mg PO DAILY 04/12/19 11/25/20 History Metoprolol Tartrate [Lopressor] 50 mg PO DAILY@1300 04/12/19 11/25/20 History Metoprolol Tartrate [Lopressor] 75 mg PO BID 04/12/19 11/25/20 History Morphine Sulfate ER [Ms Contin] 60 mg PO HS 04/12/19 11/25/20 History Rivaroxaban [Xarelto] 2.5 mg PO BID 04/12/19 11/25/20 History polyethylene glycoL 3350 [Miralax] 17 gm PO DAILY 11/25/20 11/25/20 History Allergies Allergy/AdvReac Type Severity Reaction Status Date / Time No Known Allergies Allergy Verified 11/25/20 21:32 Surgical - Exam Osteopathic Statement: *. No significant issues noted on an osteopathic st ructural exam other than those noted in the History and Physical/Consult. Vital Signs Temp Pulse Resp BP Pulse Ox 98.7 F 48 L 18 100/62 96 11/25/20 18:58 11/25/20 18:58 11/25/20 18:58 11/25/20 18:58 11/25/20 18:58 - General well developed, well nourished, no distress - Eyes PERRL - Neck no masses, trachea midline - Respiratory normal expansion, normal respiratory effort - Abdomen Abdomen: soft, non tender - Psychiatric oriented to time, oriented to person, oriented to place Results - Labs 11/27/20 05:48 11/27/20 05:48 Abnormal Lab Results - Last 24 Hours (Table) 11/27/20 11/27/20 Range/Units 05:48 05:48 MCV 97.7 H (80.0-97.0) fL Glucose 129 H (70-110) mg/dL Calcium 8.4 L (8.7-10.3) mg/dL Diabetes panel 11/27/20 Range/Units 05:48 Sodium 139 (135-145) mmol/L Potassium 3.9 (3.5-5.5) mmol/L Chloride 107 (96-109) mmol/L Carbon Dioxide 21.7 (21.6-31.8) mmol/L BUN 15.0 (9.0-27.0) mg/dL Creatinine 1.0 (0.6-1.5) mg/dL Glucose 129 H (70-110) mg/dL Calcium 8.4 L (8.7-10.3) mg/dL AST 29 (14-35) U/L ALT 28 (10-49) U/L Alkaline Phosphatase 53 (41-126) U/L Total Protein 6.3 (6.2-8.2) g/dL Albumin 4.10 (3.80-4.90) g/dL Calcium panel 11/27/20 Range/Units 05:48 Calcium 8.4 L (8.7-10.3) mg/dL Albumin 4.10 (3.80-4.90) g/dL Pituitary panel 11/27/20 Range/Units 05:48 Sodium 139 (135-145) mmol/L Potassium 3.9 (3.5-5.5) mmol/L Chloride 107 (96-109) mmol/L Carbon Dioxide 21.7 (21.6-31.8) mmol/L BUN 15.0 (9.0-27.0) mg/dL Creatinine 1.0 (0.6-1.5) mg/dL Glucose 129 H (70-110) mg/dL Calcium 8.4 L (8.7-10.3) mg/dL Adrenal panel 11/27/20 Range/Units 05:48 Sodium 139 (135-145) mmol/L Potassium 3.9 (3.5-5.5) mmol/L Chloride 107 (96-109) mmol/L Carbon Dioxide 21.7 (21.6-31.8) mmol/L BUN 15.0 (9.0-27.0) mg/dL Creatinine 1.0 (0.6-1.5) mg/dL Glucose 129 H (70-110) mg/dL Calcium 8.4 L (8.7-10.3) mg/dL Total Bilirubin 0.3 (0.3-1.2) mg/dL AST 29 (14-35) U/L ALT 28 (10-49) U/L Alkaline Phosphatase 53 (41-126) U/L Total Protein 6.3 (6.2-8.2) g/dL Albumin 4.10 (3.80-4.90) g/dL Assessment and Plan Assessment: Ulcerated lesion in rectum 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 We will await pathology. Patient will likely need a further metastatic workup with CEA level, EUS or MRI of the pelvis and possible PET/CT pending the pathology report. This can all be done as an outpatient. Patient can follow-up with me as an outpatient. Further recommendations to follow pathology report and staging if it is adenocarcinoma.
--- NOTE | 2020-11-27 14:22 | P.PCN ---
Date of Procedure: 11/27/20 Description of Procedure: BRIEF HISTORY: Patient is a 49-year-old male patient who presented to the emergency room with complaints of a cough and fever 3 days. States he has cough and fatigue since and a fever. He was concerned of possible COVID-19 infection so he presented to the emergency room. He states he's had no sick contacts. He also mentioned when he came into the emergency room and he had rectal bleeding for the last 2 days. Yesterday at 1800 was his last episode of blood in his stool. He states that he had bright red blood per rectum. His past medical history includes coronary artery disease, 1PPD smoker, GERD, hyperlipidemia, hypertension, myocardial infarction, and sleep apnea. He does take Xarelto for his heart disease, last dose taken on 11/25/2020. He also has a history of rectal bleeding in the past and underwent colonoscopy in April 2019 with findings of sigmoid polyp removed with polypectomy, diverticulosis and a 1.5 cm rectal ulcer with heaped edges with biopsies showing high-grade dysplasia versus superficial invasive adenocarcinoma with rebiopsy suggested. Patient was seen in the clinic informed of results however failed follow-up for repeat colonoscopy as he was concerned over insurance coverage for the procedure. PROCEDURE PERFORMED: Colonoscopy with biopsy and and tattoo. PREOPERATIVE DIAGNOSIS: Hemorrhage of the anus and rectum. ESTIMATED BLOOD LOSS: Minimal. IV sedation per Anesthesia. PROCEDURE: After informed consent was obtained, the patient, was brought into the endoscopy unit. IV sedation was administered by Anesthesia under continuous monitoring. Digital rectal examination was normal. Initially the Olympus CF-190 flexible video colonoscope was then inserted in the rectum, gradually advanced into the cecum without any difficulty. Careful examination was performed as the scope was gradually being withdrawn. Ileocecal valve and the appendiceal orifice were visualized and appeared normal. Prep was excellent. Mucosa of the cecum, ascending colon, transverse colon, descending colon, sigmoid colon, and rectum appeared normal with a few scattered diverticula noted in the sigmoid colon. A 3 mm sessile transverse colon polyp was removed with cold snare polypectomy. In the rectum there was redemonstration of an approximately 2-1/2 cm rectal ulcer with heaped up edges and abnormal appearance located from approximately 3 cm from the anal verge to 6 cm from the anal verge with multiple biopsies taken and tattoo placed both proximal and distal to the lesion with 2 mL injected just proximal to the mass and 2 mL just distal to the mass. Retroflexion was performed in the rectum and no lesions were seen. The patient tolerated the procedure well. IMPRESSION: Ulcerated distal rectal mass, similar in appearance to prior endoscopic evaluation, with biopsies taken of the mass and tattoo placed distal and proximal to the mass. Small transverse colon polyp removed with cold snare polypectomy. Mild sigmoid diverticulosis. RECOMMENDATIONS: Findings of this examination were discussed with the patient. Okay to resume clear liquid diet. Await pathology from biopsies. Surgical service has been consulted and informed of the results. Hematology/oncology will also be consulted. Computed tomography scan reviewed with no evidence of metastatic disease. Further recommendations based on clinical course, findings from pathology.
[2020-11-27] MEDS: LACTATED RINGERS 1,000 ML IV SCH (16:53)
[2020-11-27] MEDS: NORTRIPTYLINE 25 MG CAP PO SCH (20:50)
[2020-11-27] MEDS: MORPHINE SULFATE ER 60 MG TABLET PO SCH (20:50)
[2020-11-27] MEDS: CYCLOBENZAPRINE 10 MG TAB PO SCH (20:50)
[2020-11-28 02:12] VITALS: RESP 18
[2020-11-28] MEDS: ATORVASTATIN 80 MG TAB PO SCH (07:43)
[2020-11-28] MEDS: ISOSORBIDE MONONITRATE ER 60 MG TAB.ER.24H PO SCH (07:43)
[2020-11-28] MEDS: METOPROLOL TARTRATE 25 MG TAB PO SCH (07:44)
[2020-11-28] MEDS: PANTOPRAZOLE 40 MG TABLET PO SCH (07:44)
[2020-11-28] MEDS: HYDROcodone/APAP 10-325MG 1 EACH TAB PO SCH ×2 (07:44→15:24)
[2020-11-28] MEDS: NICOTINE 21MG/24HR PATCH TRANSDERM SCH (07:44)
[2020-11-28] MEDS: polyethylene glycoL 3350 17 GM POWD.PACK PO SCH (07:45)
[2020-11-28] MEDS: AZITHROMYCIN 500 MG TAB PO SCH (07:45)
[2020-11-28] MEDS: TOPIRAMATE 100 MG TAB PO SCH (07:45)
[2020-11-28] MEDS ORDERED: HYDROCORTISONE 2.5% RECTAL CREAM 30 GM TUBE RECTAL SCH (09:15)
[2020-11-28 09:59] LABS: HCT 46.5 % (39.6-50.0); HGB 14.9 g/dL (13.0-17.0); MCH 31.8 pg (27.0-32.0); MCV 99.1 fL (80.0-97.0); Mean Platelet Volume 9.9 fL (9.5-12.2); Platelet Count 160 X 10*3/uL (140-440); RBC 4.69 X 10*6/uL (4.40-5.60); RDW 13.9 % (11.5-14.5); WBC 7.08 X 10*3/uL (4.50-10.00)
[2020-11-28 10:39] LABS: Anion Gap 9.8 mmol/L (4.00-12.00); Calcium 8.4 mg/dL (8.7-10.3); Carbon Dioxide 20.2 mmol/L (21.6-31.8); Potassium 4.2 mmol/L (3.5-5.5)
--- NOTE | 2020-11-28 11:20 | P.DS ---
<David Canales - Last Filed: 11/28/20 11:20> Providers Expected date of discharge: 11/28/20 Hospital Course: Discharge Diagnosis: Lower GI bleed with ulcerated distal rectal mass Bronchitis with cough and fever, likely acute exacerbation of chronic bronchitis with long-standing history of an current use of cigarette smoking Nicotine dependence Hypertension Hyperlipidemia History of CAD status post quadruple bypass and stent placement Hospital Course: Patient is a 49-year-old male with a past medical history of CAD with previous PA status post quadruple bypass and stent placement on Xarelto and aspirin, hypertension, hyperlipidemia, and obstructive sleep apnea. He presented to the hospital on 11/25/20 with a chief complaint of rectal bleeding. CT abdomen and pelvis revealed moderate colonic fecal stasis with no bowel obstruction. Hemoglobin has been stable throughout admission with initial hemoglobin of 14.8, repeat 15.1, and currently 15.0. CBC, CMP, and coagulation profille showing no significant abnormalities. Stool occult was positive and Covid PCR is negative. Xarelto and aspirin were held. Patient continues to have episodes of hematochezia. Patient underwent colonoscopy with Dr. Epperson which revealed ulcerated distal rectal mass which was similar in appearance to prior endoscopic evaluation, biopsies were taken of the mass and tattoo placed distal and proximal to the mass, small transverse colon polyp was removed, and patient was also found to have mild sigmoid diverticulosis. Surgical services and hematology/oncology was then consulted. General surgery team assessed patient and we are awaiting pathology reports. Patient recommended to have further metastatic workup with CEA level, EUS or MRI of the pelvis and possible PET/CT pending on pathology report. Patient to follow-up outpatient in office with Dr. Colin and Dr. Epperson as discussed. Patient also educated on the importance of continued smoking cessation and risks of continued use. Physical exam: Patient seen and fully evaluated at the bedside this morning. He reports having minimal abdominal discomfort left upper epigastric and right upper quadrants. States he again had another large episode of hematochezia overnight. Hemoglobin has remained stable and currently 14.9. He denies having any chest pain, palpitations, shortness of breath, or experiencing any nausea or vomiting. General: non toxic, no distress, appears at stated age Derm: warm, dry Head: atraumatic, normocephalic, symmetric Eyes: EOMI, no lid lag, anicteric sclera Mouth: no lip lesion, mucus membranes moist Cardiovascular: S1S2 reg, no murmur, gallop, or rub. Positive posterior tibial pulses bilaterally, cap refill less than 2 seconds. Lungs: Respirations even, regular, and unlabored on room air. Lungs CTA bilaterally with the exception of mild expiratory wheezes. No accessory muscle use. Abdominal: soft, nontender to palpation, no guarding, no appreciable organomegaly Ext: no gross muscle atrophy, no edema, no contractures Neuro: CN II-XI grossly intact, no focal neuro deficits Psych: Alert, oriented, appropriate affect A total of 45 minutes of time were spent preparing this complex discharge summary. Patient Condition at Discharge: Stable Plan - Discharge Summary Discharge Rx Participant: No New Discharge Prescriptions: New Pantoprazole [Protonix] 40 mg PO AC-BID 30 Days #60 tablet. Nicotine 21Mg/24Hr Patch [Habitrol] 1 patch TRANSDERM DAILY 30 Days #30 patch Continue lisinopriL [Zestril] 2.5 mg PO DAILY HYDROcodone/APAP 10-325MG [[place] 10-325] 1 tab PO TID Topiramate [Topamax] 100 mg PO BID Nortriptyline HCl [Pamelor] 50 mg PO HS Isosorbide Mononitrate ER [Imdur] 60 mg PO DAILY Atorvastatin [Lipitor] 80 mg PO DAILY #90 tab Cyclobenzaprine [Flexeril] 10 mg PO HS tab Nitroglycerin Sl Tabs [Nitrostat] 0.4 mg SUBLINGUAL Q5M PRN #25 tab PRN Reason: Chest Pain Metoprolol Tartrate [Lopressor] 75 mg PO BID Aspirin 81 mg PO DAILY Rivaroxaban [Xarelto] 2.5 mg PO BID Morphine Sulfate ER [Ms Contin] 60 mg PO HS Metoprolol Tartrate [Lopressor] 50 mg PO DAILY@1300 polyethylene glycoL 3350 [Miralax] 17 gm PO DAILY Discharge Medication List HYDROcodone/APAP 10-325MG [[place] 10-325] 1 tab PO TID 10/05/14 [History] Isosorbide Mononitrate ER [Imdur] 60 mg PO DAILY 10/05/14 [History] Nortriptyline HCl [Pamelor] 50 mg PO HS 10/05/14 [History] Topiramate [Topamax] 100 mg PO BID 10/05/14 [History] lisinopriL [Zestril] 2.5 mg PO DAILY 10/05/14 [History] Atorvastatin [Lipitor] 80 mg PO DAILY #90 tab 10/10/14 [Rx] Cyclobenzaprine [Flexeril] 10 mg PO HS tab 10/10/14 [Rx] Nitroglycerin Sl Tabs [Nitrostat] 0.4 mg SUBLINGUAL Q5M PRN #25 tab 10/10/14 [Rx] Aspirin 81 mg PO DAILY 04/12/19 [History] Metoprolol Tartrate [Lopressor] 50 mg PO DAILY@1300 04/12/19 [History] Metoprolol Tartrate [Lopressor] 75 mg PO BID 04/12/19 [History] Morphine Sulfate ER [Ms Contin] 60 mg PO HS 04/12/19 [History] Rivaroxaban [Xarelto] 2.5 mg PO BID 04/12/19 [History] polyethylene glycoL 3350 [Miralax] 17 gm PO DAILY 11/25/20 [History] Nicotine 21Mg/24Hr Patch [Habitrol] 1 patch TRANSDERM DAILY 30 Days #30 patch 11/28/20 [Rx] Pantoprazole [Protonix] 40 mg PO AC-BID 30 Days #60 tablet. 11/28/20 [Rx] Follow up Appointment(s)/Referral(s): Kendall Hernandez MD [STAFF PHYSICIAN] - 1 Week (office said they will call patient) Palmer Colin DO [Doctor of Osteopathic Medicine] - 12/12/20 9:45 am Yoan Castro MD [Primary Care Provider] - 1-2 days Eben Epperson MD [STAFF PHYSICIAN] - 12/05/20 11:30 am Patient Instructions/Handouts: Gastrointestinal Bleeding (DC), Colonoscopy (DC) Activity/Diet/Wound Care/Special Instructions: Activity: As tolerated Diet: Heart healthy diet Special Instructions: It is very important that you follow up and keep all appointments with gastroenterology, general surgery, and oncology as directed as you will need additional testing and further workup. Thank you for allowing us to participate in your care, who is a pleasure having a for outpatient! Discharge Disposition: HOME SELF-CARE <Opal Montelongo - Last Filed: 11/28/20 22:17> Providers Date of admission: 11/27/20 13:28 Attending physician: Liz Webster MD Consults: 11/26/20 02:26 Consult Physician Routine Consulting Provider: Eben Epperson Consult Reason/Comments: GI bleed Do you want consulting provider notified?: Yes, Notify in am 11/27/20 13:40 Consult Physician Routine Consulting Provider: Kendall Hernandez Consult Reason/Comments: rectal mass Do you want consulting provider notified?: Yes Consult Physician Routine Consulting Provider: Palmer Colin Consult Reason/Comments: Rectal mass Do you want consulting provider notified?: Yes Primary care physician: Yoan Castro MD Hospital Course: I discussed the care with David Canales NP and reviewed the findings and plan as documented in the note above. I did not physically speak with or examine the patient on this date.
--- NOTE | 2020-11-28 13:14 | P.PN ---
Subjective Progress Note Date: 11/28/20 Principal diagnosis: Lower GI bleed She was seen and examined sitting up at the bedside. He is status post colonoscopy yesterday with findings of ulcerated distal rectal mass, similar in appearance to prior endoscopic evaluation with biopsies taken of the mass intact to place distally and proximal to the mass. He also had a small transverse colon polyp removed with cold snare polypectomy and mild sigmoid diverticulosis. He reports he did have a small amount of blood per rectum when he went to the bathroom during the middle of the night. He has had none since. He denies any abdominal pain, nausea, or vomiting. Hemoglobin remained stable at 14.9. Surgical services saw patient yesterday and he will follow-up with them outpatient to discuss further plan of care based on biopsy results. Oncology also on consult, had not seen patient at this time. Objective - Vital Signs Vital signs: Vital Signs Temp 100.3 F H 11/28/20 07:12 Pulse 104 H 11/28/20 07:12 Resp 18 11/28/20 07:12 BP 113/65 11/28/20 07:12 Pulse Ox 91 L 11/28/20 07:12 Intake & Output 11/27/20 11/28/20 11/28/20 18:59 06:59 18:59 Intake Total 640 Balance 640 Intake: IV 400 Oral 240 Other: Voiding Method Toilet Toilet # Voids 2 3 - Exam General appearance: The patient is alert, oriented, appears in no acute distr ess. HET: Head is normocephalic and atraumatic. Conjunctiva pink. Sclera anicteric. Neck: Supple without lymphadenopathy. Abdomen: Soft, nontender, nondistended with bowel sounds. No guarding or rigidity. Extremities: Normal skin color and turgor. No pedal edema Skin: No rashes, no jaundice Neurological: No focal deficits. Alert and oriented 3. - Labs CBC & Chem 7: 11/28/20 06:07 11/28/20 06:07 Labs: Abnormal Lab Results - Last 24 Hours (Table) 11/27/20 11/27/20 Range/Units 05:48 05:48 MCV 97.7 H (80.0-97.0) fL Glucose 129 H (70-110) mg/dL Calcium 8.4 L (8.7-10.3) mg/dL Assessment and Plan (1) Bright red blood per rectum Narrative/Plan: 49-year-old male patient who presented to the emergency department with complai nts of cough and fever for 3 days duration. He also did and when he came in that he had 2 episodes of premature apply per rectum, last one being yesterday around X o'clock p.m. He states he did get some mild abdominal pain and cramping episodes of bleeding. He had a previous colonoscopy in April 2019 per rectal hemorrhage, with findings of a sigmoid polyp, sigmoid diverticulosis, and rectal ulcer suggestive of stercoral ulcer. Biopsy results of sigmoid colon polyp came back as a hyperplastic polyp. Rectal ulcer came back as adenoma with high-grade dysplasia versus superficial invasive adenocarcinoma with rebiopsy suggested. The patient had a follow-up appointment mentation to repeat the colonoscopy and biopsy, however patient never had any further follow-up appointment and no repeat colonoscopy. CT of the chest abdomen and pelvis showed moderate colonic fecal stasis. No bowel obstruction. Possible etiologies of bleeding could again be from rectal ulcer, AVM, articular bleed, or other possible etiology also need to consider neoplasm as the differential. Recommend repeat colonoscopy, patient will be a bowel prep and be scheduled tomorrow. Patient is status post colonoscopy with findings of ulcerated distal rectal mass, transverse colon polyp and mild sigmoid diverticulosis. Gen. surgery and oncology on consult. Current Visit: Yes Status: Acute Code(s): K62.5 - HEMORRHAGE OF ANUS AND REC YVONNE SNOMED Code(s): 24180898 (2) Positive fecal occult blood test Current Visit: Yes Status: Acute Code(s): R19.5 - OTHER FECAL ABNORMALITIES SNOMED Code(s): 71965186 (3) Cough Current Visit: Yes Status: Acute Code(s): R05 - COUGH SNOMED Code(s): 49807650 (4) Fever Current Visit: Yes Status: Acute Code(s): R50.9 - FEVER, UNSPECIFIED SNOMED Code(s): 807468544 Plan: 1. Continue symptomatic and supportive care 2. CT of chest abdomen and pelvis ordered and reviewed 3. Advance to regular diet 4. Gen. surgery and oncology consult 5. Continue daily bowel regimen for constipation 6. Discuss with patient and his importance of follow-up with gastroenterology for biopsy results Thank you for this consultation, we will continue to follow Dr. Epperson I agree with the dictator's note, documented as a scribe by Jocelin Ingram.
--- NOTE | 2020-11-28 13:30 | P.CONS ---
History of Present Illness - Reason for Consult Consult date: 11/28/20 Anemia Rectal Mass - History of Present Illness 49 year old male with migrane, chronic back pain , CAD s/p bypass and stents, Hypertension He also had bright red bleeding per rectum. 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 He underwent colonoscopy earlier today which showed a ulcerated lesion 3 cm from the anal verge with biopsy and tattooing. Patient did undergo CT chest abdomen and pelvis which did not show any signs concerning for metastasis at this time. Past Medical History Past Medical History: Coronary Artery Disease (CAD), Chest Pain / Angina, GERD/Reflux, Hyperlipidemia, Hypertension, Myocardial Infarction ([place]), Sleep Apnea/CPAP/BIPAP Additional Past Medical History / Comment(s): Circulation issues in [place] legs, ne uropathy feet. Chronic back pain. No tx for sleep apnea. [place] x5 Last Myocardial Infarction Date:: 2014 History of Any Multi-Drug Resistant Organisms: None Reported Past Surgical History: Adenoidectomy, Coronary Bypass/CABG, Heart Catheterization, Heart Catheterization With Stent, Hernia Repair, Joint Replacement, Orthopedic Surgery, Tonsillectomy Additional Past Surgical History / Comment(s): left knee surgery x5, left total knee replacement x2. stent x 1 last done in 09/2014, 4 vessel cabg in 2010 Past Anesthesia/Blood Transfusion Reactions: No Reported Reaction Date of Last Stent Placement:: 2014 Past Psychological History: No Psychological Hx Reported Smoking Status: Current every day smoker Past Alcohol Use History: Occasional Additional Past Alcohol Use History / Comment(s): Smoking since 2017 now, 1/2 ppd, hx smoked for 27 years, quit for 5 years Past Drug Use History: None Reported - Past Family History Father Family Medical History: Cancer, Myocardial Infarction ([place]) Medications and Allergies Home Medications Medication Instructions Recorded Confirmed Type HYDROcodone/APAP 10-325MG [[place] 1 tab PO TID 10/05/14 11/25/20 History 10-325] Isosorbide Mononitrate ER [Imdur] 60 mg PO DAILY 10/05/14 11/25/20 History Nortriptyline HCl [Pamelor] 50 mg PO HS 10/05/14 11/25/20 History Topiramate [Topamax] 100 mg PO BID 10/05/14 11/25/20 History lisinopriL [Zestril] 2.5 mg PO DAILY 10/05/14 11/25/20 History Atorvastatin [Lipitor] 80 mg PO DAILY #90 tab 10/10/14 11/25/20 Rx Cyclobenzaprine [Flexeril] 10 mg PO HS tab 10/10/14 11/25/20 Rx Nitroglycerin Sl Tabs [Nitrostat] 0.4 mg SUBLINGUAL Q5M PRN #25 tab 10/10/14 11/25/20 Rx Aspirin 81 mg PO DAILY 04/12/19 11/25/20 History Metoprolol Tartrate [Lopressor] 50 mg PO DAILY@1300 04/12/19 11/25/20 History Metoprolol Tartrate [Lopressor] 75 mg PO BID 04/12/19 11/25/20 History Morphine Sulfate ER [Ms Contin] 60 mg PO HS 04/12/19 11/25/20 History Rivaroxaban [Xarelto] 2.5 mg PO BID 04/12/19 11/25/20 History polyethylene glycoL 3350 [Miralax] 17 gm PO DAILY 11/25/20 11/25/20 History Nicotine 21Mg/24Hr Patch [Habitrol] 1 patch TRANSDERM DAILY 30 Days 11/28/20 Rx #30 patch Pantoprazole [Protonix] 40 mg PO AC-BID 30 Days #60 11/28/20 Rx tablet. Allergies Allergy/AdvReac Type Severity Reaction Status Date / Time No Known Allergies Allergy Verified 11/25/20 21:32 Physical Exam Vitals: Vital Signs Temp Pulse Resp BP Pulse Ox 11/28/20 07:12 100.3 F H 104 H 18 113/65 91 L 11/28/20 01:52 98.8 F 79 18 98/57 91 L 11/27/20 19:11 98.4 F 100 16 104/65 93 L 11/27/20 14:31 100/56 11/27/20 14:16 99/64 11/27/20 14:00 97.9 F 94 18 111/72 92 L Intake and Output 11/27/20 11/28/20 11/28/20 22:59 06:59 14:59 Intake Total 240 Balance 240 Intake: Oral 240 Other: Voiding Method Toilet # Voids 2 3 2 Constitutional: No acute distress, conversant, pleasant Eyes: Anicteric sclerae, moist conjunctiva ENMT: NC/AT,Oropharynx clear, no erythema, exudates Neck:Supple, FROM, no masses Lungs: Clear to auscultation, Clear to percussion, Normal respiratory effort, no accessory muscle use Cardiovascular: Heart regular in rate and rhythm, No murmurs, gallops, or rubs no peripheral edema Abdominal: Soft Nontender, nom distended, no guarding, no rebound or rigidity, Normoactive bowel sounds Skin: Normal temperature Extremities:No digital cyanosis No clubbing, Pedal pulses intact and symmetrical Radial pulses intact and symmetrical Normal gait and station, No calf tenderness Psychiatric: Alert and oriented to person, place and time, Appropriate affect Intact judgement Neuro: Muscles Strength 5/5 in all 4 extremities, Sensation to light touch grossly present throughout, Cranial nerves II-XII grossly intact Results CBC & Chem 7: 11/28/20 06:07 11/28/20 06:07 Labs: Abnormal Lab Results - Last 24 Hours (Table) 11/27/20 11/28/20 11/28/20 Range/Units 05:48 06:07 06:07 MCV 99.1 H (80.0-97.0) fL Carbon Dioxide 20.2 L (21.6-31.8) mmol/L Glucose 129 H (70-110) mg/dL Calcium 8.4 L 8.4 L (8.7-10.3) mg/dL Assessment and Plan Plan: Patient will need to be set up for PET scan and EUS as outpatient FOllow-up in office in 2 weeks Physician Attest: I have completed the full history and physical and agree with above dictation, dictated as a ascribe.
[2020-11-28] MEDS: METOPROLOL TARTRATE 50 MG TAB PO SCH (14:15)
[2020-11-28 14:52] VITALS: BP 94/57; PULSE 90; TEMP 98.8
[2020-11-29] MEDS ORDERED: SENNOSIDES 8.6 MG TAB PO SCH (09:00)
== END 2020-11-28 15:39 | disposition home or self-care (01) | DRG 394 ==
LOC: EC 18:56 → 4SSUR 21:51 → OBSVTOIN 11-27 13:28
PROVIDERS: ADMIT Internal Medicine; ATTEND Internal Medicine
PROC: 0DBL4ZX Excision of Transverse Colon, Percutaneous Endoscopic Approach, Diagnostic (ICD-10-PCS; principal; 2020-11-27 12:35)
PROC: 0DBP8ZX Excision of Rectum, Via Natural or Artificial Opening Endoscopic, Diagnostic (ICD-10-PCS; principal; 2020-11-27 12:35)
DX: K62.6 Ulcer of anus and rectum (principal); J44.0 Chronic obstructive pulmonary disease with (acute) lower respiratory infection; J44.1 Chronic obstructive pulmonary disease with (acute) exacerbation; J20.9 Acute bronchitis, unspecified; F17.210 Nicotine dependence, cigarettes, uncomplicated; D64.9 Anemia, unspecified; E78.5 Hyperlipidemia, unspecified; G89.29 Other chronic pain; M54.5 Low back pain; I11.0 Hypertensive heart disease with heart failure; I25.10 Atherosclerotic heart disease of native coronary artery without angina pectoris; I25.2 Old myocardial infarction; I50.9 Heart failure, unspecified; K57.30 Diverticulosis of large intestine without perforation or abscess without bleeding; K64.4 Residual hemorrhoidal skin tags; Z20.822 Contact with and (suspected) exposure to COVID-19; Z79.01 Long term (current) use of anticoagulants; Z79.82 Long term (current) use of aspirin; Z79.899 Other long term (current) drug therapy; G43.909 Migraine, unspecified, not intractable, without status migrainosus; G47.30 Sleep apnea, unspecified; G62.9 Polyneuropathy, unspecified; Z82.49 Family history of ischemic heart disease and other diseases of the circulatory system; Z87.19 Personal history of other diseases of the digestive system; Z95.1 Presence of aortocoronary bypass graft; Z95.5 Presence of coronary angioplasty implant and graft; Z96.652 Presence of left artificial knee joint; Z90.89 Acquired absence of other organs
CPT/HCPCS: 36415; 44404; 45380; 45385; 71046; 71260; 74177; 80048; 80053; 82272; 82378; 85025; 85027; 85610; 85730; 87635; 88305; 96374; 99284

== ENCOUNTER → 2020-12-07 | Outpatient (CLI) | payer MEDICARE ==
--- NOTE | 2020-12-10 09:04 | PE ---
Nuclear medicine PET/CT HISTORY: Colorectal carcinoma, initial, C 20 Patient received 11.1 mCi F-18 FDG intravenously in delayed scanning was performed from the skull bas e to the mid thighs. Localization and attenuation correction CT scan was performed. Correlation to CT chest abdomen pelvis 11/26/2020 Chest and neck: Emphysematous changes are present within the lungs, multiple cystic spaces are presen t as noted on prior CT. There is no cervical or supraclavicular adenopathy, no mediastinal, axillary, or hilar adenopathy. Some mild dependent lung uptake is of questionable significance, some probable dependent atelectatic changes are suspected, SUV 3.2 on the left. Patient is post median sternotomy. Mild right hilar uptake, SUV 3.7 No pleural pericardial effusion. Patient is post median sternotomy. There are coronary artery calcifications. ABDOMEN: No evident liver mass. Nonobstructive renal calculi are present. No retroperitoneal adenopat hy or suspicious hypermetabolic uptake. Uptake along the bowel is likely physiologic. At the level of the rectum there is abnormal thickening of the wall, there is associated hypermetabol ic uptake, SUV is 14.9. Osseous structures show no suspicious uptake. IMPRESSION: Findings compatible with patient's history of rectal carcinoma. Hilar uptake is indetermi sunni
== END | disposition home or self-care (01) ==
LOC: RADPETMAIN 12:42
PROVIDERS: ATTEND Internal Medicine Hematology & Oncology
DX: C19 Malignant neoplasm of rectosigmoid junction (principal)
CPT/HCPCS: 78815; A9552

== ENCOUNTER → 2021-02-11 | Outpatient (CLI) | payer MEDICARE ==
[2021-02-11 16:31] LABS: Basophils # (A) 0.05 X 10*3/uL (0.00-0.10); Basophils % (A) 0.8 %; Eosinophils # (A) 0.52 X 10*3/uL (0.04-0.35); Eosinophils % (A) 7.9 %; HCT 41.6 % (39.6-50.0); HGB 14.2 g/dL (13.0-17.0); Lymphocytes # (A) 1.13 X 10*3/uL (0.90-5.00); Lymphocytes % (A) 17.1 %; MCH 34.2 pg (27.0-32.0); MCHC 34.1 g/dL (32.0-37.0); MCV 100.2 fL (80.0-97.0); Monocytes # (A) 0.65 X 10*3/uL (0.20-1.00); Monocytes % (A) 9.8 %; Neutrophils # (A) 4.23 X 10*3/uL (1.80-7.70); Neutrophils % (A) 63.9 %; Platelet Count 162 X 10*3/uL (140-440); RBC 4.15 X 10*6/uL (4.40-5.60); RDW 16.1 % (11.5-14.5); WBC 6.61 X 10*3/uL (4.50-10.00)
== END | disposition home or self-care (01) ==
LOC: LABWHC1 10:35
PROVIDERS: ATTEND Radiology Radiation Oncology
DX: C20 Malignant neoplasm of rectum (principal); Z87.891 Personal history of nicotine dependence
CPT/HCPCS: 36415; 85025

== ENCOUNTER → 2021-02-20 | Outpatient (CLI) | payer MEDICARE ==
[2021-02-20 18:42] LABS: HCT 26.8 % (39.6-50.0); HGB 8.8 g/dL (13.0-17.0); MCH 34.6 pg (27.0-32.0); MCHC 32.8 g/dL (32.0-37.0); MCV 105.5 fL (80.0-97.0); Mean Platelet Volume 9.2 fL (9.5-12.2); Platelet Count 171 X 10*3/uL (140-440); RBC 2.54 X 10*6/uL (4.40-5.60); RDW 19.3 % (11.5-14.5); WBC 4.79 X 10*3/uL (4.50-10.00)
[2021-02-20 19:31] LABS: Basophils # (A) 0.02 X 10*3/uL (0.00-0.10); Basophils % (A) 0.4 %; Eosinophils # (A) 0.29 X 10*3/uL (0.04-0.35); Eosinophils % (A) 6.1 %; Lymphocytes # (A) 0.59 X 10*3/uL (0.90-5.00); Lymphocytes % (A) 12.3 %; Macrocytosis (M) 2+; Monocytes % (A) 10.4 %; Neutrophils % (A) 68.9 %
== END | disposition home or self-care (01) ==
LOC: LABWHC1 11:17
PROVIDERS: ATTEND Radiology Radiation Oncology
DX: C20 Malignant neoplasm of rectum (principal); Z87.891 Personal history of nicotine dependence
CPT/HCPCS: 36415; 85025

== ENCOUNTER 2021-02-21 14:01 | Inpatient (IN) | payer MEDICARE ==
[2021-02-21] MEDS ORDERED: SODIUM CHLORIDE 0.9% 1,000 ML IV STA (14:42)
[2021-02-21] MEDS ORDERED: SODIUM CHLORIDE 0.9% 500 ML 500 ML IV STA (14:42)
--- NOTE | 2021-02-21 14:46 | ED ---
General Adult HPI - General Chief complaint: Recheck/Abnormal Lab/Rx Stated complaint: Revisit,Labs Time Seen by Provider: 02/21/21 14:26 Source: patient Mode of arrival: ambulatory Limitations: no limitations - History of Present Illness Initial comments: This 50-year-old male presents with a complaint of rectal bleeding. He states that he has had rectal bleeding for the last 10 days. He normally has 2-3 episodes per day and states that he has a large amount of dark blood per rectum. He also is on anticoagulants. He is being treated by medical and radiation oncology currently for rectal cancer. He is on a low dose oral chemotherapeutic rate agent. He also is receiving radiation therapy to his rectum. He was sent in by Dr. Hernandez for him oncology due to low hemoglobin. His hemoglobin was 14.2 on 02/11/21 and yesterday and was down to 8.8. He is worried about the possibility of a bleeding rectal vessel and it is felt as though he would re quire admission and GI consultation and likely colonoscopy. The patient does relate that he will have pain after a bowel movement which is fairly severe. He has had some moderate rectal pain chronically with with his rectal cancer. He states that he only currently has very mild diffuse abdominal pain. There is been no fevers or chills. He is had occasional nausea but no vomiting. He states that he takes the xarelto for a history of blood clots. Is also on aspirin and another blood thinner for history of cardiac disease. He has a long cardiac history including previous CABG and cardiac stenting with a history of myocardial infarction. He does relate increased fatigue and slight light headedness with standing. No other complaints or modifying factors. - Related Data Home Medications Medication Instructions Recorded Confirmed HYDROcodone/APAP 10-325MG [[place] 1 tab PO TID 10/05/14 02/21/21 10-325] Isosorbide Mononitrate ER [Imdur] 60 mg PO DAILY 10/05/14 02/21/21 Nortriptyline HCl [Pamelor] 50 mg PO HS 10/05/14 02/21/21 Topiramate [Topamax] 100 mg PO BID 10/05/14 02/21/21 lisinopriL [Zestril] 2.5 mg PO DAILY 10/05/14 02/21/21 Metoprolol Tartrate [Lopressor] 50 mg PO DAILY@1300 10/01/19 08/12/21 Metoprolol Tartrate [Lopressor] 75 mg PO BID@0900,2100 04/12/19 02/21/21 Morphine Sulfate ER [Ms Contin] 60 mg PO HS 04/12/19 02/21/21 polyethylene glycoL 3350 [Miralax] 17 gm PO DAILY 11/25/20 02/21/21 Capecitabine [Xeloda] 1,500 mg PO DIRECTED 02/21/21 02/21/21 Capecitabine [Xeloda] 150 mg PO DIRECTED 02/21/21 02/21/21 Fluticasone Nasal [place] [Flonase 1 spr EA NOSTRIL DAILY 02/21/21 02/21/21 Nasal [place]] Hydrocortisone Lotion [Hytone 2.5% 1 applic TOPICAL BID 02/21/21 02/21/21 Lotion] Morphine Sulfate ER [Ms Contin] 60 mg PO DAILY@1500 PRN 02/21/21 02/21/21 Nitroglycerin Sl Tabs [Nitrostat] 0.4 mg SL Q5M PRN 02/21/21 02/21/21 Pantoprazole [Protonix] 40 mg PO AC-SUPPER 02/21/21 02/21/21 ondansetron HCL [Zofran] 8 mg PO Q6H PRN 02/21/21 02/21/21 Previous Rx's Medication Instructions Recorded Atorvastatin [Lipitor] 80 mg PO DAILY #90 tab 10/10/14 Cyclobenzaprine [Flexeril] 10 mg PO HS tab 10/10/14 Allergies Allergy/AdvReac Type Severity Reaction Status Date / Time No Known Allergies Allergy Verified 02/21/21 14:08 Review of Systems ROS Statement: Those systems with pertinent positive or pertinent negative responses have been documented in the HPI. ROS Other: All systems not noted in ROS Statement are negative. Past Medical History Past Medical History: Coronary Artery Disease (CAD), Cancer, Chest Pain / Angina, GERD/Reflux, Hyperlipidemia, Hypertension, Myocardial Infarction ([place]), Sleep Apnea/CPAP/BIPAP Additional Past Medical History / Comment(s): Circulation issues in [place] legs, neuropathy feet. Chronic back pain. No tx for sleep apnea. [place] x5, Rectal CA, recieves chemo and radtion Last Myocardial Infarction Date:: 2014 History of Any Multi-Drug Resistant Organisms: None Reported Past Surgical History: Adenoidectomy, Coronary Bypass/CABG, Heart Catheterization, Heart Catheterization With Stent, Hernia Repair, Joint Replacement, Orthopedic Surgery, Tonsillectomy Additional Past Surgical History / Comment(s): left knee surgery x5, left total knee replacement x2. stent x 1 last done in 09/2014, 4 vessel cabg in 2010 Past Anesthesia/Blood Transfusion Reactions: No Reported Reaction Date of Last Stent Placement:: 2014 Past Psychological History: No Psychological Hx Reported Smoking Status: Former smoker Past Alcohol Use History: Occasional Past Drug Use History: None Reported - Past Family History Father Family Medical History: Cancer, Myocardial Infarction ([place]) General Exam - General Exam Comments Initial Comments: GENERAL: The patient is well nourished and well hydrated. VITAL SIGNS: Heart rate, blood pressure, respiratory rate reviewed as recorded in nurse's notes. EYES: Pupils are round and reactive. Extraocular movements are intact. No conjunctival / lid redness or swelling. ENT: No external evidence of injury, swelling, or ecchymosis. Airway is patent. Throat is clear. NECK: Nontender. No swelling or evidence of injury. No subcutaneous emphysema. Trachea is midline. No thyroid mass. HEART: Regular rate and rhythm. Good peripheral pulses. LUNGS/CHEST: Breath sounds clear and equal bilaterally. No rales, rhonchi, or wheezes. No ecchymosis, subcutaneous emphysema, or tenderness. ABDOMEN: Abdomen soft mild diffuse tenderness. No palpable masses or organomegaly. No peritoneal signs. No abdominal wall swelling or ecchymosis. EXTREMITIES: No extremity tenderness. Normal muscle tone and function. No thoracolumbar tenderness. NEUROLOGIC: Sensation is grossly intact. Cranial nerve exam reveals face is symmetrical, tongue is midline, speech is clear. SKIN: No abrasions or ecchymosis is noted. No induration or masses noted. PSYCHIATRIC: Alert and oriented. Appropriate behavior and judgment. Limitations: no limitations Course Vital Signs 02/21/21 02/21/21 02/21/21 14:03 15:07 16:31 Temperature 98.3 F Pulse Rate 84 67 Respiratory 18 18 18 Rate Blood Pressure 115/63 83/51 O2 Sat by Pulse 100 100 Oximetry Medical Decision Making - Medical Decision Making The patient was seen and examined. IV is established. He is mildly hydrated. The old records are reviewed with the above-noted anemia which is fairly acute in nature over 10 days. The repeat laboratory does show a hemoglobin slightly elevated as compared to yesterday at 9.8. Remainder of labs are essentially unremarkable. He also had an acute abdominal series which did not show any evidence of perforation or acute process. It is not felt as though patient would require a transfusion at this time. He appears stable clinically. His blood pressure normally runs around 90 systolic and his been right around there are slightly lower. He receives some fluid hydration but no aggressive measures will be obtained to increase it. He states that his blood pressure is normally Low due to his heart conditions. Case is discussed with internal medicine doctor Nathan and she is agreeable with admission. Case will be discussed with gastroenterology in the near future. Patient will be admitted to the general medical floor with telemetry for further treatment. - Lab Data Result diagrams: 02/21/21 14:50 02/21/21 14:50 Lab Results 02/21/21 02/21/21 02/21/21 Range/Units 14:50 14:50 14:50 WBC 4.3 (3.8-10.6) k/uL RBC 2.69 L (4.30-5.90) m/uL Hgb 9.8 L (13.0-17.5) gm/dL Hct 28.1 L (39.0-53.0) % MCV 104.4 H (80.0-100.0) fL MCH 36.4 H (25.0-35.0) pg MCHC 34.9 (31.0-37.0) g/dL RDW 21.1 H (11.5-15.5) % Plt Count 205 (150-450) k/uL MPV 6.8 Neutrophils % 70 % Lymphocytes % 14 % Monocytes % 8 % Eosinophils % 5 % Basophils % 1 % Neutrophils # 3.0 (1.3-7.7) k/uL Lymphocytes # 0.6 L (1.0-4.8) k/uL Monocytes # 0.3 (0-1.0) k/uL Eosinophils # 0.2 (0-0.7) k/uL Basophils # 0.0 (0-0.2) k/uL Anisocytosis Moderate Macrocytosis Marked A PT 10.4 (9.0-12.0) sec INR 1.0 (<1.2) APTT 19.0 L (22.0-30.0) sec Sodium 139 (137-145) mmol/L Potassium 4.0 (3.5-5.1) mmol/L Chloride 109 H (98-107) mmol/L Carbon Dioxide 21 L (22-30) mmol/L Anion Gap 9 mmol/L BUN 15 (9-20) mg/dL Creatinine 1.00 (0.66-1.25) mg/dL Est GFR (CKD-EPI)AfAm >90 (>60 ml/min/1.73 sqM) Est GFR (CKD-EPI)NonAf 87 (>60 ml/min/1.73 sqM) Glucose 116 H (74-99) mg/dL Calcium 9.0 (8.4-10.2) mg/dL Total Bilirubin 0.4 (0.2-1.3) mg/dL AST 51 (17-59) U/L ALT 60 H (4-49) U/L Alkaline Phosphatase 52 (38-126) U/L Total Protein 6.4 (6.3-8.2) g/dL Albumin 3.9 (3.5-5.0) g/dL Lipase 97 (23-300) U/L Urine Color Urine Appearance (Clear) Urine pH (5.0-8.0) Ur Specific [place] (1.001-1.035) Urine Protein (Negative) Urine Glucose (UA) (Negative) Urine Ketones (Negative) Urine Blood (Negative) Urine Nitrite (Negative) Urine Bilirubin (Negative) Urine Urobilinogen (<2.0) mg/dL Ur Leukocyte Esterase (Negative) Urine RBC (0-5) /hpf Urine WBC (0-5) /hpf Amorphous Sediment (None) /hpf Urine Mucus (None) /hpf Blood Type Blood Type Recheck Bld Type Recheck Status Antibody Screen Spec Expiration Date 02/21/21 02/21/21 Range/Units 14:50 16:30 WBC (3.8-10.6) k/uL RBC (4.30-5.90) m/uL Hgb (13.0-17.5) gm/dL Hct (39.0-53.0) % MCV (80.0-100.0) fL MCH (25.0-35.0) pg MCHC (31.0-37.0) g/dL RDW (11.5-15.5) % Plt Count (150-450) k/uL MPV Neutrophils % % Lymphocytes % % Monocytes % % Eosinophils % % Basophils % % Neutrophils # (1.3-7.7) k/uL Lymphocytes # (1.0-4.8) k/uL Monocytes # (0-1.0) k/uL Eosinophils # (0-0.7) k/uL Basophils # (0-0.2) k/uL Anisocytosis Macrocytosis PT (9.0-12.0) sec INR (<1.2) APTT (22.0-30.0) sec Sodium (137-145) mmol/L Potassium (3.5-5.1) mmol/L Chloride (98-107) mmol/L Carbon Dioxide (22-30) mmol/L Anion Gap mmol/L BUN (9-20) mg/dL Creatinine (0.66-1.25) mg/dL Est GFR (CKD-EPI)AfAm (>60 ml/min/1.73 sqM) Est GFR (CKD-EPI)NonAf (>60 ml/min/1.73 sqM) Glucose (74-99) mg/dL Calcium (8.4-10.2) mg/dL Total Bilirubin (0.2-1.3) mg/dL AST (17-59) U/L ALT (4-49) U/L Alkaline Phosphatase (38-126) U/L Total Protein (6.3-8.2) g/dL Albumin (3.5-5.0) g/dL Lipase (23-300) U/L Urine Color Yellow Urine Appearance Cloudy (Clear) Urine pH 6.5 (5.0-8.0) Ur Specific [place] 1.017 (1.001-1.035) Urine Protein Negative (Negative) Urine Glucose (UA) Negative (Negative) Urine Ketones Negative (Negative) Urine Blood Negative (Negative) Urine Nitrite Negative (Negative) Urine Bilirubin Negative (Negative) Urine Urobilinogen <2.0 (<2.0) mg/dL Ur Leukocyte Esterase Negative (Negative) Urine RBC <1 (0-5) /hpf Urine WBC 1 (0-5) /hpf Amorphous Sediment Rare H (None) /hpf Urine Mucus Rare H (None) /hpf Blood Type B Positive Blood Type Recheck B Pos Bld Type Recheck Status No Antibody Screen NEGATIVE Spec Expiration Date 02/24/20212342 Disposition Clinical Impression: Rectal cancer, Anemia, Rectal bleeding Disposition: ADMITTED IP TO THIS HOSP Condition: Fair Is patient prescribed a controlled substance at d/c from ED?: No Referrals: Yoan Castro MD [Primary Care Provider] - 1-2 days Time of Disposition: 17:37 Decision Date: 02/21/21 Decision Time: 17:37
[2021-02-21 15:06] LABS: ALT 60 U/L (4-49); AST 51 U/L (17-59); African American GFR (CKD) >90 (>60 ml/min/1.73 sqM); Albumin 3.9 g/dL (3.5-5.0); Alkaline Phosphatase 52 U/L (38-126); Anion Gap 9 mmol/L; Blood Urea Nitrogen 15 mg/dL (9-20); Carbon Dioxide 21 mmol/L (22-30); Chloride 109 mmol/L (98-107); Glucose 116 mg/dL (74-99); Lipase 97 U/L (23-300); Non-African American GFR(CKD) 87 (>60 ml/min/1.73 sqM); Sodium 139 mmol/L (137-145); Total Bilirubin 0.4 mg/dL (0.2-1.3); Total Protein 6.4 g/dL (6.3-8.2)
[2021-02-21 15:11] LABS: Prothrombin Time 10.4 sec (9.0-12.0)
--- NOTE | 2021-02-21 15:18 | XR ---
EXAMINATION TYPE: XR abdomen 2V DATE OF EXAM: 02/21/2021 CLINICAL DATA: 50 year-old male abdominal pain, PHH COMPARISON: None FINDINGS: Lung bases are clear. Median sternotomy wires and postoperative clips. No dilated small bowel or air-fluid levels. No evidence for free intraperitoneal air. Moderate stool burden. Air and stool extends distally to the rectum. Rounded calcification right mid abdomen measuring 5 mm and 4 mm on the left. Bilateral pelvic phleboliths. IMPRESSION: 1. No evidence of bowel obstruction or free intraperitoneal air. 2. Moderate stool burden. 3. Nonobstructive bilateral renal calculi measuring up to 5 mm.
[2021-02-21 15:26] LABS: Anisocytosis Moderate; Basophils % (A) 1 %; Eosinophils # (A) 0.2 k/uL (0-0.7); Eosinophils % (A) 5 %; HCT 28.1 % (39.0-53.0); HGB 9.8 gm/dL (13.0-17.5); Lymphocytes # (A) 0.6 k/uL (1.0-4.8); Lymphocytes % (A) 14 %; MCH 36.4 pg (25.0-35.0); MCHC 34.9 g/dL (31.0-37.0); MCV 104.4 fL (80.0-100.0); Macrocytosis Marked; Mean Platelet Volume 6.8; Monocytes # (A) 0.3 k/uL (0-1.0); Monocytes % (A) 8 %; Neutrophils % (A) 70 %; Platelet Count 205 k/uL (150-450); RBC 2.69 m/uL (4.30-5.90); RDW 21.1 % (11.5-15.5); WBC 4.3 k/uL (3.8-10.6)
[2021-02-21 16:56] LABS: Amorphous Sediment,Urine Rare /hpf; Appearance,Urine Cloudy (Clear); Bilirubin,Urine Negative (Negative); Blood,Urine Negative (Negative); Color,Urine Yellow; Glucose,Urine (UA) Negative (Negative); Ketones,Urine Negative (Negative); Leukocyte Esterase,Urine Negative (Negative); Mucus,Urine Rare /hpf; Nitrite,Urine Negative (Negative); PH, Urine 6.5 (5.0-8.0); Protein,Urine Negative (Negative); RBC,Urine <1 /hpf (0-5); Specific Gravity,Urine 1.017 (1.001-1.035); Urobilinogen,Urine <2.0 mg/dL (<2.0); WBC,Urine 1 /hpf (0-5)
[2021-02-21] MEDS ORDERED: ONDANSETRON 4 MG TAB PO PRN (17:40)
[2021-02-21] MEDS ORDERED: NALOXONE 0.4 MG/ML 1 ML VIAL IV PRN (17:43)
[2021-02-21] MEDS ORDERED: ACETAMINOPHEN TAB 325 MG TAB PO PRN (17:43)
[2021-02-21] MEDS ORDERED: ONDANSETRON 4 MG/2 ML VIAL IVP PRN (17:43)
--- NOTE | 2021-02-21 18:49 | P.HPIM ---
History of Present Illness H&P Date: 02/21/21 Chief Complaint: rectal bleeding Patient is a 50-year-old male with history of rectal cancer currently undergoing oral chemotherapy and radiation, coronary artery disease status post bypass and stents, and hypertension who was sent to the ER by his oncologist secondary to ongoing rectal bleeding. On arrival to the ER here his initial vital signs were within normal limits. Laboratory analysis showed hemoglobin of 9.8, chloride 109, carbon dioxide 21, glucose 116, ALT 60 labs were otherwise unremarkable. Abdominal x-ray demonstrated diffuse stool burden but no signs of obstruction. In the ER he was typed and screened and given a 1 L normal saline bolus. Patient was initially here 11/25/20 secondary to rectal bleeding. At that point in time he underwent a colonoscopy which demonstrated an ulcerated distal rectal mass. He underwent outpatient PET scan on 12/10/20 was noted to have rectal uptake. Sent in by Dr. Hernandez also following with Dr. Barnes. Sat February 09 had a bowel movement and filled toilet has been dark red blood. Since that time 2-3 bowel movements daily with blood in the toilet. On noted skin and tissue in the toilet and Dr. Barnes sent him in for blood work. Followed with Dr. Hernandez and thought was tumor necrosis. He continued to have blood in the stool and toilet bowel that is dark red. yellow discharge on wiping. Now feeling fatigued and light headed with decreased exercise tolerance. No shortness of breath, no chest pain, + palpitations intermittent the last 2 days. No syncope. Abdominal pain just before and during the bowel for his last 2 bowel movements, + nausea, no vomiting. Has not been taking xarelto or ASA while on chemo and radiation. Last radiation treatment this morning. Taking Xeloda on the days he has radiation. Pertinent positives and negatives as discussed in HPI, a complete review of systems was performed and all other systems are negative. General: non toxic, no distress, appears at stated age Derm: + pallor, warm, dry Head: atraumatic, normocephalic, symmetric Eyes: EOMI, no lid lag, anicteric sclera, pupils equal round reactive to light ENT: Nose and ears atraumatic, no thrush, no pharyngeal erythema Neck: No thyromegaly, no cervical lymphadenopathy, trachea midline, supple Mouth: no lip lesion, mucus membranes moist Cardiovascular: S1S2 reg, no murmur, positive posterior tibial pulse bilateral, no edema, capillary refill less than 2 seconds Lungs: clear to ascultation bilateral, no ronchi, no rales, no wheeze, no accessory muscle use Abdominal: soft, nontender to palpation, no guarding, no appreciable organomegaly, normal bowel sounds Ext: no gross muscle atrophy, muscle strength muscle strength 5 out of 5 in all 4 extremities, no contractures Neuro: CN II-XI grossly intact, light touch intact all 4 extremities, finger to nose within normal limits, Psych: Alert, oriented, appropriate affect Rectal Bleeding Rectal Cancer Acute Blood Loss Anemia Constipation -Case discussed with Dr. Barnes, patient was do for last round of radiation 02/21/21 -GI consultation, discussed with Dr. Epperson clear liquid fluids and then nothing by mouth after midnight -Serial hemoglobins -IV fluids - continue with hydrocortisone suppository - continue with bowel regiment Coronary artery disease - imdur, lopressor, lisinopril, , statin Chronic low back pain with neuropathy -Continue with MS Contin, [place], and Flexeril Chronic: Hypertension Dyslipidemia GERD The patient is admitted with an anticipated greater than 2 midnight stay for evaluation of rectal bleeding. Surrogate decision-maker: CODE STATUS: Full code DVT prophylaxis: SCDs Discussed with: , ED physician, Dr. Barnes, Dr. Epperson Anticipated discharge date: 2-[address]: Home A total of 75 minutes was spent on the care of this complex patient more than 50% of the time was spent in counseling and care coordination. Past Medical History Past Medical History: Coronary Artery Disease (CAD), Cancer, Chest Pain / Angina, GERD/Reflux, Hyperlipidemia, Hypertension, Myocardial Infarction ([place]) (X 5 ), Sleep Apnea/CPAP/BIPAP Additional Past Medical History / Comment(s): Circulation issues in [place] legs, neuropathy feet. Chronic back pain. No tx for sleep apnea. [place] x5, Rectal CA, recieves chemo and radtion Last Myocardial Infarction Date:: 2014 History of Any Multi-Drug Resistant Organisms: None Reported Past Surgical History: Adenoidectomy, Coronary Bypass/CABG, Heart Catheterization, Heart Catheterization With Stent, Hernia Repair, Joint Replacement, Orthopedic Surgery, Tonsillectomy Additional Past Surgical History / Comment(s): left knee surgery x5, left total knee replacement x2. stent x 1 last done in 09/2014, 4 vessel cabg in 2010 Past Anesthesia/Blood Transfusion Reactions: No Reported Reaction Date of Last Stent Placement:: 2014 Past Psychological History: No Psychological Hx Reported Smoking Status: Former smoker Past Alcohol Use History: None Reported Past Drug Use History: None Reported - Past Family History Father Family Medical History: Cancer, Myocardial Infarction ([place]) Medications and Allergies Home Medications Medication Instructions Recorded Confirmed Type HYDROcodone/APAP 10-325MG [[place] 1 tab PO TID 10/05/14 02/21/21 History 10-325] Isosorbide Mononitrate ER [Imdur] 60 mg PO DAILY 10/05/14 02/21/21 History Nortriptyline HCl [Pamelor] 50 mg PO HS 10/05/14 02/21/21 History Topiramate [Topamax] 100 mg PO BID 10/05/14 02/21/21 History lisinopriL [Zestril] 2.5 mg PO DAILY 10/05/14 02/21/21 History Atorvastatin [Lipitor] 80 mg PO DAILY #90 tab 10/10/14 02/21/21 Rx Cyclobenzaprine [Flexeril] 10 mg PO HS tab 10/10/14 02/21/21 Rx Metoprolol Tartrate [Lopressor] 50 mg PO DAILY@1300 04/12/19 02/21/21 History Metoprolol Tartrate [Lopressor] 75 mg PO BID@0900,2100 04/12/19 02/21/21 History Morphine Sulfate ER [Ms Contin] 60 mg PO HS 04/12/19 02/21/21 History polyethylene glycoL 3350 [Miralax] 17 gm PO DAILY 11/25/20 02/21/21 History Aspirin EC [Ecotrin Low Dose] 81 mg PO DIRECTED 02/21/21 02/21/21 History Capecitabine [Xeloda] 1,500 mg PO DIRECTED 02/21/21 02/21/21 History Capecitabine [Xeloda] 150 mg PO DIRECTED 02/21/21 02/21/21 History Fluticasone Nasal [place] [Flonase 1 spr EA NOSTRIL DAILY 02/21/21 02/21/21 History Nasal [place]] Hydrocortisone Lotion [Hytone 2.5% 1 applic TOPICAL BID 02/21/21 02/21/21 History Lotion] Morphine Sulfate ER [Ms Contin] 60 mg PO DAILY@1500 PRN 02/21/21 02/21/21 History Nitroglycerin Sl Tabs [Nitrostat] 0.4 mg SL Q5M PRN 02/21/21 02/21/21 History Pantoprazole [Protonix] 40 mg PO AC-SUPPER 02/21/21 02/21/21 History Rivaroxaban [Xarelto] 2.5 mg PO DIRECTED 02/21/21 02/21/21 History ondansetron HCL [Zofran] 8 mg PO Q6H PRN 02/21/21 02/21/21 History Allergies Allergy/AdvReac Type Severity Reaction Status Date / Time bee venom protein (honey bee) Allergy Unknown Verified 02/21/21 18:06 Physical Exam Osteopathic Statement: *. No significant issues noted on an osteopathic structural exam other than those noted in the History and Physical/Consult. Vitals: Vital Signs Temp Pulse Resp BP Pulse Ox 02/21/21 16:31 67 18 83/51 100 02/21/21 15:07 18 02/21/21 14:03 98.3 F 84 18 115/63 100 Intake and Output 02/21/21 02/21/21 02/21/21 06:59 14:59 22:59 Other: Weight 88.451 kg Results CBC & Chem 7: 02/21/21 14:50 02/21/21 14:50 Labs: Abnormal Lab Results - Last 24 Hours (Table) 02/21/21 02/21/21 02/21/21 Range/Units 14:50 14:50 14:50 RBC 2.69 L (4.30-5.90) m/uL Hgb 9.8 L (13.0-17.5) gm/dL Hct 28.1 L (39.0-53.0) % MCV 104.4 H (80.0-100.0) fL MCH 36.4 H (25.0-35.0) pg RDW 21.1 H (11.5-15.5) % Lymphocytes # 0.6 L (1.0-4.8) k/uL Macrocytosis Marked A APTT 19.0 L (22.0-30.0) sec Chloride 109 H (98-107) mmol/L Carbon Dioxide 21 L (22-30) mmol/L Glucose 116 H (74-99) mg/dL ALT 60 H (4-49) U/L Amorphous Sediment (None) /hpf Urine Mucus (None) /hpf 02/21/21 Range/Units 16:30 RBC (4.30-5.90) m/uL Hgb (13.0-17.5) gm/dL Hct (39.0-53.0) % MCV (80.0-100.0) fL MCH (25.0-35.0) pg RDW (11.5-15.5) % Lymphocytes # (1.0-4.8) k/uL Macrocytosis APTT (22.0-30.0) sec Chloride (98-107) mmol/L Carbon Dioxide (22-30) mmol/L Glucose (74-99) mg/dL ALT (4-49) U/L Amorphous Sediment Rare H (None) /hpf Urine Mucus Rare H (None) /hpf
[2021-02-21 21:26] LABS: Anisocytosis Moderate; HCT 23.5 % (39.0-53.0); Hypochromasia Slight; MCH 34.7 pg (25.0-35.0); MCHC 32.6 g/dL (31.0-37.0); MCV 106.6 fL (80.0-100.0); Macrocytosis Marked; Mean Platelet Volume 7.4; Platelet Count 157 k/uL (150-450); RDW 20.8 % (11.5-15.5); WBC 2.9 k/uL (3.8-10.6)
[2021-02-21 21:33] LABS: HGB 7.6 gm/dL (13.0-17.5)
[2021-02-21 21:53] LABS: Poikilocytosis (M) Present; Polychromasia Present
[2021-02-21] MEDS: SODIUM CHLORIDE 0.9% 1,000 ML IV SCH (22:04)
[2021-02-21] MEDS: HYDROcodone/APAP 10-325MG 1 EACH TAB PO SCH (22:29)
[2021-02-21] MEDS: CYCLOBENZAPRINE 10 MG TAB PO SCH (22:29)
[2021-02-21] MEDS: MORPHINE SULFATE ER 60 MG TABLET PO SCH (22:31)
[2021-02-21] MEDS: METOPROLOL TARTRATE 25 MG TAB PO SCH (22:32)
[2021-02-21] MEDS: NORTRIPTYLINE 25 MG CAP PO SCH (22:43)
[2021-02-21] MEDS: HYDROCORTISONE 1% CREAM 30 GM TUBE TOPICAL SCH (22:44)
[2021-02-21] MEDS: Capecitabine [Xeloda] 500 MG Tablet PO SCH (22:44)
[2021-02-21] MEDS: TOPIRAMATE 100 MG TAB PO SCH (22:44)
[2021-02-21] MEDS: CAPECITABINE 150 MG PO SCH (22:45)
[2021-02-22 06:15] LABS: Anisocytosis Moderate; Basophils % (A) 0 %; Eosinophils # (A) 0.3 k/uL (0-0.7); Eosinophils % (A) 8 %; HCT 22.1 % (39.0-53.0); HGB 7.4 gm/dL (13.0-17.5); Lymphocytes # (A) 0.6 k/uL (1.0-4.8); Lymphocytes % (A) 15 %; MCH 35.4 pg (25.0-35.0); MCHC 33.6 g/dL (31.0-37.0); MCV 105.4 fL (80.0-100.0); Macrocytosis Marked; Mean Platelet Volume 6.9; Monocytes # (A) 0.3 k/uL (0-1.0); Monocytes % (A) 7 %; Neutrophils # (A) 2.4 k/uL (1.3-7.7); Neutrophils % (A) 66 %; Platelet Count 160 k/uL (150-450); RDW 21.2 % (11.5-15.5); WBC 3.6 k/uL (3.8-10.6)
[2021-02-22 06:38] LABS: African American GFR (CKD) >90 (>60 ml/min/1.73 sqM); Anion Gap 3 mmol/L; Blood Urea Nitrogen 11 mg/dL (9-20); Calcium 8.2 mg/dL (8.4-10.2); Carbon Dioxide 21 mmol/L (22-30); Chloride 116 mmol/L (98-107); Glucose 90 mg/dL (74-99); Non-African American GFR(CKD) >90 (>60 ml/min/1.73 sqM); Potassium 4.4 mmol/L (3.5-5.1); Sodium 140 mmol/L (137-145)
[2021-02-22] MEDS: METOPROLOL TARTRATE 25 MG TAB PO SCH ×2 (08:14→22:03)
[2021-02-22] MEDS: HYDROCORTISONE 1% CREAM 30 GM TUBE TOPICAL SCH ×2 (08:14→22:03)
[2021-02-22] MEDS: HYDROcodone/APAP 10-325MG 1 EACH TAB PO SCH ×3 (08:15→22:04)
[2021-02-22] MEDS: TOPIRAMATE 100 MG TAB PO SCH ×2 (08:15→22:04)
[2021-02-22] MEDS: ISOSORBIDE MONONITRATE ER 60 MG TAB.ER.24H PO SCH (08:15)
[2021-02-22] MEDS: FLUTICASONE 50MCG/SPRAY NASAL 16GM EA NOSTRIL SCH ×2 (08:16→08:17)
[2021-02-22] MEDS: ATORVASTATIN 80 MG TAB PO SCH (08:17)
[2021-02-22] MEDS: polyethylene glycoL 3350 17 GM POWD.PACK PO SCH (08:18)
[2021-02-22] MEDS ORDERED: NA PHOS,M-B/NA PHOS,DI-BA 133 ML ENEMA RECTAL STA ×2 (11:09→14:25)
[2021-02-22] MEDS ORDERED: NA PHOS,M-B/NA PHOS,DI-BA 133 ML ENEMA RECTAL ONE (12:00)
[2021-02-22] MEDS: CAPECITABINE 150 MG PO SCH ×2 (12:13→22:02)
[2021-02-22] MEDS: Capecitabine [Xeloda] 500 MG Tablet PO SCH ×2 (12:13→22:02)
[2021-02-22] MEDS: SODIUM CHLORIDE 0.9% 1,000 ML IV SCH ×2 (12:15→22:41)
[2021-02-22] MEDS ORDERED: METOPROLOL TARTRATE 50 MG TAB PO SCH (13:00)
--- NOTE | 2021-02-22 13:48 | P.PN ---
Subjective Progress Note Date: 02/22/21 Patient is a 50-year-old male with history of rectal cancer currently undergoing oral chemotherapy and radiation, coronary artery disease status post bypass and stents, and hypertension who was sent to the ER by his oncologist secondary to ongoing rectal bleeding. On arrival to the ER here his initial vital signs were within normal limits. Laboratory analysis showed hemoglobin of 9.8, chloride 109, carbon dioxide 21, glucose 116, ALT 60 labs were otherwise unremarkable. Abdominal x-ray demonstrated diffuse stool burden but no signs of obstruction. In the ER he was typed and screened and given a 1 L normal saline bolus. His hemoglobin was followed and did downtrend to 7.4. GI was consulted as well as oncology. Patient seen and examined at bedside. He reports that he had 1 additional bowel movement that was adelina blood yesterday and it was associated with abdominal pain and cramping. Since then his pain and cramping has lessened. He denies any chest pain, shortness of breath, lightheadedness, dizziness, and palpitations. General: non toxic, no distress, appears at stated age Derm: + Pallor, warm, dry Head: atraumatic, normocephalic, symmetric Eyes: EOMI, no lid lag, anicteric sclera Mouth: no lip lesion, mucus membranes moist Cardiovascular: S1S2 reg, no murmur, positive posterior tibial pulse bilateral, Lungs: CTA bilateral, no rhonchi, no rales , no accessory muscle use Abdominal: soft, nontender to palpation, no guarding, no appreciable organomegaly Ext: no gross muscle atrophy, no edema, no contractures Neuro: CN II-XI grossly intact, no focal neuro deficits Psych: Alert, oriented, appropriate affect Rectal Bleeding Rectal Cancer Acute Blood Loss Anemia Constipation -Case discussed with Dr. Barnes no radiation 06/24 -GI recs appreciated, limited scope today -Serial hemoglobins - IV fluids - continue with hydrocortisone suppository - continue with bowel regiment Coronary artery disease - imdur, lopressor, lisinopril, , statin Chronic low back pain with neuropathy -Continue with MS Contin, [place], and Flexeril Chronic: Hypertension Dyslipidemia GERD DVT prophylaxis: SCDs Discussed with: , ED physician, [facility] [employer]NA[employer] Anticipated discharge date: 2-[address]: Home A total of 35 minutes was spent on the care of this complex patient more than 50% of the time was spent in counseling and care coordination. Objective - Vital Signs Vital signs: Vital Signs Temp 97.9 F 02/22/21 13:00 Pulse 75 02/22/21 13:00 Resp 16 02/22/21 13:00 BP 101/66 02/22/21 13:00 Pulse Ox 98 02/22/21 13:00 Intake & Output 02/21/21 02/22/21 02/22/21 18:59 06:59 18:59 Intake Total 900 Balance 900 Weight 88.451 kg 88.451 kg Intake: Intake, IV Titration 900 Amount Sodium Chloride 0.9% 1, 900 000 ml @ 75 mls/hr IV . [id number] [facility] Rx#:[id number] Other: Voiding Method Toilet # Voids 2 # Bowel Movements 1 - Labs CBC & Chem 7: 02/22/21 05:06 02/22/21 05:06 Labs: Abnormal Lab Results - Last 24 Hours (Table) 02/21/21 02/21/21 02/21/21 Range/Units 14:50 14:50 14:50 WBC (3.8-10.6) k/uL RBC 2.69 L (4.30-5.90) m/uL Hgb 9.8 L (13.0-17.5) gm/dL Hct 28.1 L (39.0-53.0) % MCV 104.4 H (80.0-100.0) fL MCH 36.4 H (25.0-35.0) pg RDW 21.1 H (11.5-15.5) % Lymphocytes # 0.6 L (1.0-4.8) k/uL Macrocytosis Marked A APTT 19.0 L (22.0-30.0) sec Chloride 109 H (98-107) mmol/L Carbon Dioxide 21 L (22-30) mmol/L Glucose 116 H (74-99) mg/dL Calcium (8.4-10.2) mg/dL ALT 60 H (4-49) U/L Amorphous Sediment (None) /hpf Urine Mucus (None) /hpf 02/21/21 02/21/21 02/22/21 Range/Units 16:30 20:32 05:06 WBC 2.9 L (3.8-10.6) k/uL RBC 2.20 L (4.30-5.90) m/uL Hgb 7.6 L D (13.0-17.5) gm/dL Hct 23.5 L (39.0-53.0) % MCV 106.6 H (80.0-100.0) fL MCH (25.0-35.0) pg RDW 20.8 H (11.5-15.5) % Lymphocytes # (1.0-4.8) k/uL Macrocytosis Marked A APTT (22.0-30.0) sec Chloride 116 H (98-107) mmol/L Carbon Dioxide 21 L (22-30) mmol/L Glucose (74-99) mg/dL Calcium 8.2 L (8.4-10.2) mg/dL ALT (4-49) U/L Amorphous Sediment Rare H (None) /hpf Urine Mucus Rare H (None) /hpf 02/22/21 Range/Units 05:06 WBC 3.6 L (3.8-10.6) k/uL RBC 2.10 L (4.30-5.90) m/uL Hgb 7.4 L (13.0-17.5) gm/dL Hct 22.1 L (39.0-53.0) % MCV 105.4 H (80.0-100.0) fL MCH 35.4 H (25.0-35.0) pg RDW 21.2 H (11.5-15.5) % Lymphocytes # 0.6 L (1.0-4.8) k/uL Macrocytosis Marked A APTT (22.0-30.0) sec Chloride (98-107) mmol/L Carbon Dioxide (22-30) mmol/L Glucose (74-99) mg/dL Calcium (8.4-10.2) mg/dL ALT (4-49) U/L Amorphous Sediment (None) /hpf Urine Mucus (None) /hpf
[2021-02-22 13:49] VITALS: BMI 28.8
[2021-02-22] MEDS: MORPHINE SULFATE 4 MG/ML SYRINGE IV PRN ×2 (13:55→21:15)
--- NOTE | 2021-02-22 14:55 | P.CONS ---
History of Present Illness - Reason for Consult Consult date: 02/22/21 rectal bleed, rectal cancer Requesting physician: Opal Montelongo - Chief Complaint rectal bleeding - History of Present Illness This is a 50-year-old male with a history of rectal cancer diagnosed in November of this year is currently undergoing oral chemotherapy and radiation, with a history of coronary artery disease status post bypass and stents, and hypertension who presented to the emergency department directed by his oncologist for ongoing rectal bleeding. Arrival in the emergency department his initial hemoglobin was 9.8. He states then he has been having rectal bleeding that began 2 weeks ago which he states is a deep red with bowel movements. He states he is having about 2-3 bowel movements a day, which he states are formed and soft now. However the patient does state that he was on MiraLAX for constipation and he was having loose stools so he stopped his MiraLAX. He then started having constipation and restart in the MiraLAX every other day but still is having constipation so he is now taking it once a day. States while he was taking the MiraLAX every other day he started having the rectal bleeding. He denies any abdominal pain, nausea, or vomiting. His last chemotherapy and radiation was yesterday. He states he only has two more treatments of radiation and he has done. Today's labs WBC 3.7, hemoglobin 7.4, hematocrit 22, platelet count 160,000, INR 1.0, total bilirubin 0.4, alkaline phosphatase 52, AST 51, ALT 60. Review of Systems REVIEW OF SYSTEMS: CARDIOPULMONARY: No chest pain or shortness of breath. Gastrointestinal: No abdominal pain. No nausea or vomiting currently, had some the last 3 days. No hematemesis, coffee-ground emesis. Rectal bleeding. GENITOURINARY: No dysuria or hematuria. MUSCULOSKELETAL: Reports normal range of motion., Joint pain. SKIN: No rashes. No jaundice. ENDOCRINE: No chills, fevers. No excessive weight gain or loss. No polydipsia or polyuria. PSYCHIATRIC: Unremarkable. NEUROLOGY: No change in mental status. Denies dizziness, headache. ENT: Vision unremarkable. CONSTITUTIONAL: No recent weight loss. No fever, chills, night sweats. Past Medical History Past Medical History: Coronary Artery Disease (CAD), Cancer, Chest Pain / Angina, GERD/Reflux, Hyperlipidemia, Hypertension, Myocardial Infarction (HI), Sleep Apnea/CPAP/BIPAP Additional Past Medical History / Comment(s): Circulation issues in [place] legs, neuropathy feet. Chronic back pain. No tx for sleep apnea. HI x5, Rectal CA, recieves chemo and radtion Last Myocardial Infarction Date:: 2014 History of Any Multi-Drug Resistant Organisms: None Reported Past Surgical History: Adenoidectomy, Coronary Bypass/CABG, Heart Catheterization, Heart Catheterization With Stent, Hernia Repair, Joint Replacement, Orthopedic Surgery, Tonsillectomy Additional Past Surgical History / Comment(s): left knee surgery x5, left total knee replacement x2. stent x 1 last done in 09/2014, 4 vessel cabg in 2010 Past Anesthesia/Blood Transfusion Reactions: No Reported Reaction Date of Last Stent Placement:: 2014 Past Psychological History: No Psychological Hx Reported Smoking Status: Former smoker Past Alcohol Use History: None Reported Additional Past Alcohol Use History / Comment(s): Smoking since 2016 now, 1/2 ppd, hx smoked for 27 years, quit for 5 years Past Drug Use History: None Reported - Past Family History Father Family Medical History: Cancer, Myocardial Infarction (HI) Medications and Allergies Home Medications Medication Instructions Recorded Confirmed Type HYDROcodone/APAP 10-325MG [[place] 1 tab PO TID 10/05/14 02/21/21 History 10-325] Isosorbide Mononitrate ER [Imdur] 60 mg PO DAILY 10/05/14 02/21/21 History Nortriptyline HCl [Pamelor] 50 mg PO HS 10/05/14 02/21/21 History Topiramate [Topamax] 100 mg PO BID 10/05/14 02/21/21 History lisinopriL [Zestril] 2.5 mg PO DAILY 10/05/14 02/21/21 History Atorvastatin [Lipitor] 80 mg PO DAILY #90 tab 10/10/14 02/21/21 Rx Cyclobenzaprine [Flexeril] 10 mg PO HS tab 10/10/14 02/21/21 Rx Metoprolol Tartrate [Lopressor] 50 mg PO DAILY@1300 04/12/19 02/21/21 History Metoprolol Tartrate [Lopressor] 75 mg PO BID@0900,2100 04/12/19 02/21/21 History Morphine Sulfate ER [Ms Contin] 60 mg PO HS 04/12/19 02/21/21 History polyethylene glycoL 3350 [Miralax] 17 gm PO DAILY 11/25/20 02/21/21 History Aspirin EC [Ecotrin Low Dose] 81 mg PO DIRECTED 02/21/21 02/21/21 History Capecitabine [Xeloda] 1,500 mg PO DIRECTED 02/21/21 02/21/21 History Capecitabine [Xeloda] 150 mg PO DIRECTED 02/21/21 02/21/21 History Fluticasone Nasal [place] [Flonase 1 spr EA NOSTRIL DAILY 02/21/21 02/21/21 History Nasal [place]] Hydrocortisone Lotion [Hytone 2.5% 1 applic TOPICAL BID 02/21/21 02/21/21 History Lotion] Morphine Sulfate ER [Ms Contin] 60 mg PO DAILY@1500 PRN 02/21/21 02/21/21 History Nitroglycerin Sl Tabs [Nitrostat] 0.4 mg SL Q5M PRN 02/21/21 02/21/21 History Pantoprazole [Protonix] 40 mg PO AC-SUPPER 02/21/21 02/21/21 History Rivaroxaban [Xarelto] 2.5 mg PO DIRECTED 02/21/21 02/21/21 History ondansetron HCL [Zofran] 8 mg PO Q6H PRN 02/21/21 02/21/21 History Allergies Allergy/AdvReac Type Severity Reaction Status Date / Time bee venom protein (honey bee) Allergy Unknown Verified 02/21/21 18:06 Physical Exam Vitals: Vital Signs Temp Pulse Pulse Resp BP BP Pulse Ox 02/22/21 05:26 97.8 F 67 16 91/51 94 L 02/21/21 20:15 16 02/21/21 20:00 97.6 F 69 16 116/73 99 02/21/21 19:02 98.3 F 63 18 96/57 100 02/21/21 19:00 63 18 100 02/21/21 18:00 63 18 100 02/21/21 17:00 63 18 96/57 100 02/21/21 16:31 67 18 83/51 100 02/21/21 15:07 18 02/21/21 14:03 98.3 F 84 18 115/63 100 Intake and Output 02/21/21 02/22/21 02/22/21 22:59 06:59 14:59 Intake Total 900 Balance 900 Intake: Intake, IV Titration 900 Amount Sodium Chloride 0.9% 1, 900 000 ml @ 75 mls/hr IV . [id number] [facility] Rx#:[id number] Other: Voiding Method Toilet # Voids 2 # Bowel Movements 1 Weight 88.451 kg General appearance: The patient is alert, oriented, appears in no acute distress. HET: Head is normocephalic and atraumatic. Conjunctiva pink. Sclera anicteric. Neck: Supple without lymphadenopathy. Trachea midline. Heart: S1 S2. Regular rate and rhythm. Lungs: Clear to auscultation. Abdomen: Soft, mild lower abdominal tenderness, nondistended with bowel sounds. No guarding or rigidity. Skin: No rashes. No jaundice. Extremities: Normal skin color and turgor. No pedal edema. Neurological: No focal deficits. Alert and oriented 3.. Results CBC & Chem 7: 02/22/21 05:06 02/22/21 05:06 Labs: Abnormal Lab Results - Last 24 Hours (Table) 02/21/21 02/21/21 02/21/21 Range/Units 14:50 14:50 14:50 WBC (3.8-10.6) k/uL RBC 2.69 L (4.30-5.90) m/uL Hgb 9.8 L (13.0-17.5) gm/dL Hct 28.1 L (39.0-53.0) % MCV 104.4 H (80.0-100.0) fL MCH 36.4 H (25.0-35.0) pg RDW 21.1 H (11.5-15.5) % Lymphocytes # 0.6 L (1.0-4.8) k/uL Macrocytosis Marked A APTT 19.0 L (22.0-30.0) sec Chloride 109 H (98-107) mmol/L Carbon Dioxide 21 L (22-30) mmol/L Glucose 116 H (74-99) mg/dL Calcium (8.4-10.2) mg/dL ALT 60 H (4-49) U/L Amorphous Sediment (None) /hpf Urine Mucus (None) /hpf 02/21/21 02/21/21 02/22/21 Range/Units 16:30 20:32 05:06 WBC 2.9 L (3.8-10.6) k/uL RBC 2.20 L (4.30-5.90) m/uL Hgb 7.6 L D (13.0-17.5) gm/dL Hct 23.5 L (39.0-53.0) % MCV 106.6 H (80.0-100.0) fL MCH (25.0-35.0) pg RDW 20.8 H (11.5-15.5) % Lymphocytes # (1.0-4.8) k/uL Macrocytosis Marked A APTT (22.0-30.0) sec Chloride 116 H (98-107) mmol/L Carbon Dioxide 21 L (22-30) mmol/L Glucose (74-99) mg/dL Calcium 8.2 L (8.4-10.2) mg/dL ALT (4-49) U/L Amorphous Sediment Rare H (None) /hpf Urine Mucus Rare H (None) /hpf 02/22/21 Range/Units 05:06 WBC 3.6 L (3.8-10.6) k/uL RBC 2.10 L (4.30-5.90) m/uL Hgb 7.4 L (13.0-17.5) gm/dL Hct 22.1 L (39.0-53.0) % MCV 105.4 H (80.0-100.0) fL MCH 35.4 H (25.0-35.0) pg RDW 21.2 H (11.5-15.5) % Lymphocytes # 0.6 L (1.0-4.8) k/uL Macrocytosis Marked A APTT (22.0-30.0) sec Chloride (98-107) mmol/L Carbon Dioxide (22-30) mmol/L Glucose (74-99) mg/dL Calcium (8.4-10.2) mg/dL ALT (4-49) U/L Amorphous Sediment (None) /hpf Urine Mucus (None) /hpf Assessment and Plan (1) Rectal bleeding Narrative/Plan: 52-year-old male who was recently diagnosed with rectal cancer and currently undergoing chemotherapy and radiation therapy who was instructed by his oncologist to come in for rectal bleeding. Patient has been having rectal bleeding for the last 2 weeks duration after having some issues with constipation. He had initial hemoglobin of 9.8 on admission which has dropped to 7.4. Bleeding likely due to radiation, will proceed with flexible sigmoidoscopy for further evaluation. Current Visit: Yes Status: Acute Code(s): K62.5 - HEMORRHAGE OF ANUS AND RECTUM SNOMED Code(s): 31515028 (2) Anemia Current Visit: Yes Status: Acute Code(s): D64.9 - ANEMIA, UNSPECIFIED SNOMED Code(s): 209933498 (3) Rectal cancer Current Visit: Yes Status: Acute Code(s): C20 - MALIGNANT NEOPLASM OF RECTUM SNOMED Code(s): 407356904 Plan: 1. Keep nothing by mouth 2. Fleets enema 2 prior to procedure 3. Patient scheduled for flexible sigmoidoscopy this afternoon, procedure discussed with patient and who was at the bedside including risks and benefits. Patient is going to proceed with procedure. 4. Further recommendations to follow flexible sigmoidoscopy. Thank you for allowing us to participate in the care of the patient, the GI service will sign off, gastroenterology will not be available at the hospital this weekend and if further evaluation by gastroenterology is required the patient will need transfer as per the primary team's discretion. Dr. Epperson I agree with the dictator's note, documented as a scribe by Jocelin Ingram.
[2021-02-22] MEDS ORDERED: MORPHINE SULFATE ER 60 MG TABLET PO PRN (15:00)
[2021-02-22] MEDS ORDERED: ePHEDrine SULFATE/0.9% NACL/PF 50 MG/5 ML SYRINGE IV ONE (15:55)
[2021-02-22] MEDS ORDERED: LIDOCAINE 1% INJ 10MG/ML (20 ML MDV) ONE (15:55)
[2021-02-22] MEDS ORDERED: PROPOFOL 10 MG/ML 20 ML VIAL IV ONE (15:55)
[2021-02-22] MEDS ORDERED: PHENYLEPHRINE-0.9% NACL SYG 1,000 MCG/10 ML SYRINGE ONE (15:55)
--- NOTE | 2021-02-22 17:05 | P.PCN ---
Date of Procedure: 02/22/21 Description of Procedure: BRIEF HISTORY: 50-year-old male with a history of rectal cancer diagnosed in November of this year is currently undergoing oral chemotherapy and radiation, with a history of coronary artery disease status post bypass and stents, and hypertension who presented to the emergency department directed by his oncologist for ongoing rectal bleeding. Arrival in the emergency department his initial hemoglobin was 9.8. He states then he has been having rectal bleeding that began 2 weeks ago which he states is a deep red with bowel movements. He states he is having about 2-3 bowel movements a day, which he states are formed and soft now. However the patient does state that he was on MiraLAX for constipation and he was having loose stools so he stopped his MiraLAX. He then started having constipation and restart in the MiraLAX every other day but still is having constipation so he is now taking it once a day. States while he was taking the MiraLAX every other day he started having the rectal bleeding. He denies any abdominal pain, nausea, or vomiting. His last chemotherapy and radiation was yesterday. He states he only has two more treatments of radiation and he has done. PROCEDURE PERFORMED: Flexible sigmoidoscopy. PREOPERATIVE DIAGNOSIS: Hemorrhage of the anus and rectum, GI bleed, history of rectal cancer. ESTIMATED BLOOD LOSS: Minimal. IV sedation per Anesthesia. PROCEDURE: After informed consent was obtained, the patient, was brought into the endoscopy unit. IV sedation was administered by Anesthesia under continuous monitoring. Digital rectal examination was normal, with external hemorrhoids and anal fissure noted. Initially the Olympus CF-190 flexible video colonoscope was then inserted in the rectum, gradually advanced into the sigmoid colon where stool was noted. There was no active bleeding or old blood noted. In the distal rectum tattoo was noted as well as ulcerated area just proximal to the anal verge much improved from prior examination and after radiation therapy the ulcer appeared smaller in size, approximately 1 cm linear nonbleeding ulcer noted without active bleeding or stigmata for bleeding. Retroflexion was performed and internal hemorrhoids were noted. On withdrawal of the endoscope through the anal verge the previously noted anal fissure was seen. IMPRESSION: Nonbleeding anal fissure. Internal and external hemorrhoids. Previously noted rectal cancer much improved with decreased size and only a 1 cm nonbleeding ulcer noted in the distal rectum without high risk stigmata for bleeding or evidence of active or old blood. RECOMMENDATIONS: Findings of this examination were discussed with the patient and his . Okay to resume diet. Extensive discussion regarding stool softeners including MiraLAX to be titrated to soft formed bowel movements, adequate water intake, with the addition of lidocaine jelly to be applied rectally 3 times daily. If patient continues to have symptoms would recommend referral to surgical service for fissurectomy. Otherwise, no further endoscopic evaluation planned at this time. The gastroenterology service will sign off, there will be no further GI coverage over the weekend and if further evaluation is required patient will need referral to tertiary center as per discretion of the primary team.
[2021-02-22] MEDS ORDERED: PANTOPRAZOLE 40 MG TABLET PO SCH (17:30)
[2021-02-22 17:45] LABS: Anisocytosis Moderate; HCT 23.5 % (39.0-53.0); HGB 7.7 gm/dL (13.0-17.5); Hypochromasia Slight; MCH 35.1 pg (25.0-35.0); MCHC 32.7 g/dL (31.0-37.0); MCV 107.2 fL (80.0-100.0); Macrocytosis Marked; Mean Platelet Volume 7.4; Platelet Count 163 k/uL (150-450); RBC 2.19 m/uL (4.30-5.90); RDW 20.8 % (11.5-15.5); WBC 6.3 k/uL (3.8-10.6)
[2021-02-22] MEDS ORDERED: LIDOCAINE 2% GEL 30 ML TUBE TOPICAL PRN (22:00)
[2021-02-22] MEDS: CYCLOBENZAPRINE 10 MG TAB PO SCH (22:02)
[2021-02-22] MEDS: MORPHINE SULFATE ER 60 MG TABLET PO SCH (22:03)
[2021-02-22] MEDS: NORTRIPTYLINE 25 MG CAP PO SCH (22:04)
[2021-02-23 09:18] LABS: Anisocytosis Moderate; Hypochromasia Slight; MCH 35.6 pg (25.0-35.0); MCHC 33.1 g/dL (31.0-37.0); MCV 107.5 fL (80.0-100.0); Macrocytosis Marked; Mean Platelet Volume 8.5; Platelet Count 144 k/uL (150-450); RBC 1.96 m/uL (4.30-5.90); RDW 20.9 % (11.5-15.5); WBC 3.8 k/uL (3.8-10.6)
[2021-02-23] MEDS: ISOSORBIDE MONONITRATE ER 60 MG TAB.ER.24H PO SCH (10:27)
[2021-02-23] MEDS: TOPIRAMATE 100 MG TAB PO SCH (10:27)
[2021-02-23] MEDS: ATORVASTATIN 80 MG TAB PO SCH (10:28)
[2021-02-23] MEDS: METOPROLOL TARTRATE 25 MG TAB PO SCH (10:28)
[2021-02-23] MEDS: polyethylene glycoL 3350 17 GM POWD.PACK PO SCH (10:31)
[2021-02-23] MEDS: HYDROcodone/APAP 10-325MG 1 EACH TAB PO SCH (10:42)
--- NOTE | 2021-02-23 11:46 | P.DS ---
Providers Date of admission: 02/23/21 08:14 Expected date of discharge: 02/23/21 Attending physician: Opal Montelongo DO Consults: 02/21/21 17:45 Consult Physician Urgent Consulting Provider: Eben Epperson Reason/Comments: rectal bleed Do you want consulting provider notified?: Already Contacted Primary care physician: Yoan Castro MD Hospital Course: Discharge Diagnosis: Rectal bleeding Rectal cancer Acute blood loss anemia Constipation Coronary artery disease Chronic low back pain with neuropathy Hypertension Dyslipidemia GERD Hospital Course: Patient is a 50-year-old male with history of rectal cancer currently undergoing oral chemotherapy and radiation, coronary artery disease status post bypass and stents on ASA and Xarelto, and hypertension who was sent to the ER by his oncologist secondary to ongoing rectal bleeding. On arrival to the ER here his initial vital signs were within normal limits. Laboratory analysis showed hemoglobin of 9.8, chloride 109, carbon dioxide 21, glucose 116, ALT 60 labs were otherwise unremarkable. Abdominal x-ray demonstrated diffuse stool burden but no signs of obstruction. Patient's hemoglobin dropped down to the 7 range and then remained stable for the remainder of the hospital stay. Patient had a limited colonoscopy done that showed nonbleeding anal fissure and internal extraocular hemorrhoids. His rectal cancer appeared to have decreased in size. Patient was instructed to take lidocaine cream for pain and to take MiraLAX to avoid constipation. Patient at the time of discharge denied any rectal bleeding. His hemoglobin was stable. Patient told to continue to hold Xarelto and aspirin until cleared by his information security. Patient instructed to follow-up with his information security and oncologist in one week. Patient seen and examined at bedside.[] Vital signs reviewed and stable. General: [non toxic], [no distress], [appears at stated age] Derm: [warm], [dry] Head: [atraumatic], [normocephalic], [symmetric] Eyes: [EOMI], [no lid lag], [anicteric sclera] Mouth: [no lip lesion], [mucus membranes moist] Cardiovascular: [S1S2 reg], [no murmur], [positive posterior tibial pulse bilateral], Lungs: [CTA bilateral], [no rhonchi, no rales] , [no accessory muscle use] Abdominal: [soft], [ nontender to palpation], [no guarding], [no appreciable organomegaly] Ext: [no gross muscle atrophy], [no edema], [no contractures] Neuro: [ CN II-XI grossly intact], [no focal neuro deficits] Psych: [Alert], [oriented], [appropriate affect] A total of [32] minutes of time were spent preparing this complex discharge summary . Patient Condition at Discharge: Fair Plan - Discharge Summary Discharge Rx Participant: Yes New Discharge Prescriptions: New Lidocaine 2% Gel [Xylocaine Jelly 2%] 1 applic TOPICAL TID PRN applic PRN Reason: Before bowel movement Continue lisinopriL [Zestril] 2.5 mg PO DAILY HYDROcodone/APAP 10-325MG [[place] 10-325] 1 tab PO TID Topiramate [Topamax] 100 mg PO BID Nortriptyline HCl [Pamelor] 50 mg PO HS Isosorbide Mononitrate ER [Imdur] 60 mg PO DAILY Atorvastatin [Lipitor] 80 mg PO DAILY #90 tab Cyclobenzaprine [Flexeril] 10 mg PO HS tab Metoprolol Tartrate [Lopressor] 75 mg PO BID@0900,2100 Morphine Sulfate ER [Ms Contin] 60 mg PO HS Metoprolol Tartrate [Lopressor] 50 mg PO DAILY@1300 Capecitabine [Xeloda] 150 mg PO DIRECTED ondansetron HCL [Zofran] 8 mg PO Q6H PRN PRN Reason: Nausea And Vomiting Fluticasone Nasal [place] [Flonase Nasal [place]] 1 spr EA NOSTRIL DAILY Morphine Sulfate ER [Ms Contin] 60 mg PO DAILY@1500 PRN PRN Reason: Pain Pantoprazole [Protonix] 40 mg PO AC-SUPPER polyethylene glycoL 3350 [Miralax] 17 gm PO DAILY Hydrocortisone Lotion [Hytone 2.5% Lotion] 1 applic TOPICAL BID Nitroglycerin Sl Tabs [Nitrostat] 0.4 mg SL Q5M PRN PRN Reason: Chest Pain Discontinued Capecitabine [Xeloda] 1,500 mg PO DIRECTED Aspirin EC [Ecotrin Low Dose] 81 mg PO DIRECTED Rivaroxaban [Xarelto] 2.5 mg PO DIRECTED Discharge Medication List HYDROcodone/APAP 10-325MG [[place] 10-325] 1 tab PO TID 10/05/14 [History] Isosorbide Mononitrate ER [Imdur] 60 mg PO DAILY 10/05/14 [History] Nortriptyline HCl [Pamelor] 50 mg PO HS 10/05/14 [History] Topiramate [Topamax] 100 mg PO BID 10/05/14 [History] lisinopriL [Zestril] 2.5 mg PO DAILY 10/05/14 [History] Atorvastatin [Lipitor] 80 mg PO DAILY #90 tab 10/10/14 [Rx] Cyclobenzaprine [Flexeril] 10 mg PO HS tab 10/10/14 [Rx] Metoprolol Tartrate [Lopressor] 50 mg PO DAILY@1300 04/12/19 [History] Metoprolol Tartrate [Lopressor] 75 mg PO BID@0900,2100 04/12/19 [History] Morphine Sulfate ER [Ms Contin] 60 mg PO HS 04/12/19 [History] polyethylene glycoL 3350 [Miralax] 17 gm PO DAILY 11/25/20 [History] Capecitabine [Xeloda] 150 mg PO DIRECTED 02/21/21 [History] Fluticasone Nasal [place] [Flonase Nasal [place]] 1 spr EA NOSTRIL DAILY 02/21/21 [History] Hydrocortisone Lotion [Hytone 2.5% Lotion] 1 applic TOPICAL BID 02/21/21 [History] Morphine Sulfate ER [Ms Contin] 60 mg PO DAILY@1500 PRN 02/21/21 [History] Nitroglycerin Sl Tabs [Nitrostat] 0.4 mg SL Q5M PRN 02/21/21 [History] Pantoprazole [Protonix] 40 mg PO AC-SUPPER 02/21/21 [History] ondansetron HCL [Zofran] 8 mg PO Q6H PRN 02/21/21 [History] Lidocaine 2% Gel [Xylocaine Jelly 2%] 1 applic TOPICAL TID PRN applic 02/23/21 [Rx] Follow up Appointment(s)/Referral(s): Kendall Hernandez MD [STAFF PHYSICIAN] - 1 Week Patito Greenwood MD [STAFF PHYSICIAN] - 1 Week Yoan Castro MD [Primary Care Provider] - 1-2 days Discharge Disposition: HOME SELF-CARE Plan of Treatment: Please hold your aspirin and Xarelto until your are cleared by your information security to resume. Please follow up with your information security in one week
[2021-02-23 12:20] VITALS: BP 91/53; RESP 17; TEMP 98.5
[2021-02-23] MEDS: HYDROCORTISONE 1% CREAM 30 GM TUBE TOPICAL SCH (13:03)
[2021-02-23] MEDS: SODIUM CHLORIDE 0.9% 1,000 ML IV SCH (13:04)
[2021-02-23 13:17] VITALS: PULSE 80
== END 2021-02-23 14:40 | disposition home or self-care (01) | DRG 378 ==
LOC: EC 14:01 → 5NMEDONC 17:43 → OBSVTOIN 02-23 08:14
PROVIDERS: ADMIT Internal Medicine; ATTEND Internal Medicine
PROC: 0DJD8ZZ Inspection of Lower Intestinal Tract, Via Natural or Artificial Opening Endoscopic (ICD-10-PCS; principal; 2021-02-22 08:50)
DX: K62.5 Hemorrhage of anus and rectum (principal); C20 Malignant neoplasm of rectum; D62 Acute posthemorrhagic anemia; K60.2 Anal fissure, unspecified; K64.8 Other hemorrhoids; K64.4 Residual hemorrhoidal skin tags; G89.29 Other chronic pain; M54.5 Low back pain; I10 Essential (primary) hypertension; E78.5 Hyperlipidemia, unspecified; K21.9 Gastro-esophageal reflux disease without esophagitis; I25.10 Atherosclerotic heart disease of native coronary artery without angina pectoris; K59.00 Constipation, unspecified; G62.9 Polyneuropathy, unspecified; I25.2 Old myocardial infarction; G47.30 Sleep apnea, unspecified; Z79.01 Long term (current) use of anticoagulants; Z79.82 Long term (current) use of aspirin; Z79.891 Long term (current) use of opiate analgesic; Z79.899 Other long term (current) drug therapy; Z95.5 Presence of coronary angioplasty implant and graft; Z95.1 Presence of aortocoronary bypass graft; Z96.652 Presence of left artificial knee joint; Z86.718 Personal history of other venous thrombosis and embolism; Z87.891 Personal history of nicotine dependence; Z90.89 Acquired absence of other organs; Z87.19 Personal history of other diseases of the digestive system; Z98.890 Other specified postprocedural states; Z91.030 Bee allergy status; Z82.49 Family history of ischemic heart disease and other diseases of the circulatory system
CPT/HCPCS: 36415; 45330; 74019; 80048; 80053; 81001; 83690; 85025; 85027; 85610; 85730; 86850; 86900; 86901; 96360; 99284

== ENCOUNTER → 2022-01-31 | Outpatient (CLI) | payer MEDICARE ==
--- NOTE | 2022-01-31 13:39 | CT ---
EXAMINATION TYPE: CT ChestAbdPelvis w con DATE OF EXAM: 01/31/2022 COMPARISON: 11/26/2020 HISTORY: f/u rectal ca CT DLP: 1050.8 mGycm Automated exposure control for dose reduction was used. CONTRAST: CT scan of the chest, abdomen and pelvis is performed with Oral Contrast and with IV Contrast, patien t injected with 70cc mL of Isovue 300. Findings: CT CHEST: Mediport catheter in the right chest. As on the prior study, there are mild innumerable small lung parenchymal cysts scattered diffusely th roughout both lungs. There is no suspicious lung mass or nodule. There is no airspace consolidation o r abnormal interstitial density in the exception of a small interstitial scar in the right lung base. There is no pleural effusion or pneumothorax. The great vessels chest are normal and there is no medi astinal, hilar or axillary adenopathy. No focal intraosseous abnormalities are seen. CT abdomen and pelvis: There has been interval colectomy involving the transverse, left and sigmoid colon. There is a colos trent in the right upper abdomen. The bowel loops are normal in caliber and there is no evidence of ander wel obstruction. No inflammatory changes are identified in the mesentery. There is no free intraperit prajapati air or fluid. The gallbladder is normal without wall thickening, distention gallstones or biliary ductal dilatation . There are 2 low-density masses within the liver which are seen previously and statistically most like ly represent cysts although the small mass in the left lobe of the liver is too small to characterize definitively. There is no pancreatic or splenic mass. Yearly mammograms are normal. The contrast promptly and symmetrically and no solid renal mass or there is an 8 mm nonobstructing ri ght renal calcific. The caliber of the abdominal aorta. There has been interval development of perirectal enlarged lymph nodes, one measuring 2.3 cm. IMPRESSION: 1. Diffuse chronic lung changes but no acute cardiopulmonary disease and no suspicious lung mass or n odule. 2. No adenopathy within the thorax. 3. Interval postsurgical change with partial colectomy and colostomy as described above. 4. Interval development of perirectal lymphadenopathy. 5. stable low-density lesions within the liver most likely representing cysts. 6. Stable bilateral nonobstructing renal calcifications.
== END | disposition home or self-care (01) ==
LOC: RADCTMAIN 11:04
PROVIDERS: ATTEND Internal Medicine Hematology & Oncology
DX: C20 Malignant neoplasm of rectum (principal)
CPT/HCPCS: 82565; 84520; 71260; 74177; 36415; Q9967

== ENCOUNTER → 2022-02-21 | Outpatient (CLI) | payer MEDICARE ==
--- NOTE | 2022-02-23 14:17 | PE ---
EXAMINATION TYPE: PET CT fusion skull to thigh DATE OF EXAM: 02/21/2022 CLINICAL INDICATION:Male, 51 years old with history of C20 rectal ca; TECHNIQUE: Following the intravenous administration of 11.8 mCi of F-18 FDG, whole body images are performed from the skull base to the midthigh. Images are reviewed on the computer in the coronal, a xial, and sagittal planes. Reconstructed rotating images are created on independent workstation and reviewed on the computer. A non-contrast CT is performed in conjunction with the PET scan. Glucose level 119 mg/dL COMPARISON: CT 01/31/2022, PET/CT 12/07/2020, FINDINGS: Mediastinal SUV maximum is 1.2. Hepatic parenchyma SUV maximum is 1.9. SKULL BASE AND NECK: No suspicious FDG activity. CHEST, MEDIASTINUM, AND HILAR REGION: No suspicious FDG activity. Previous indeterminate pulmonary hi lum FDG uptake is now back on levels. ABDOMEN AND PELVIS: No suspicious FDG activity. Interval surgical changes with surgical clips identif ied. No abnormal increased uptake CT is seen within the surgical bed surgical bed max SUV 1.6. OSSEOUS STRUCTURES: No suspicious FDG activity. OTHER: Diffuse muscle uptake is seen throughout the skeleton. OTHER CT: Chest wall Fctbiy-w-Cqyd with distal tip projecting to raising the right atrium. There is s ternotomy changes with coronary artery atherosclerosis and CABG changes. There is centrilobular emphy sema changes with scattered air cysts throughout the lungs with underlying pulmonary fibrosis. Hepati c cysts are present. Right cortical renal calculus and nonobstructing bilateral renal calculi. Right lower quadrant parastomal hernia containing loops of small bowel. Fat filled umbilical hernia and lef t inguinal hernia. Mild multilevel disc degeneration changes are seen throughout the spine. IMPRESSION: 1. Note diffuse increased skeletal muscle uptake decreases the sensitivity of this examination corre late for recent exercise or metformin use. 2. Interval surgical changes without evidence for suspicious FDG activity within the surgical bed or evidence for metastatic disease in this limited exam secondary to diffuse muscle uptake.
== END | disposition home or self-care (01) ==
LOC: RADXRMAIN 06:55
PROVIDERS: ATTEND Internal Medicine Hematology & Oncology
DX: C20 Malignant neoplasm of rectum (principal)
CPT/HCPCS: 78815; A9552

== ENCOUNTER → 2022-05-21 | Outpatient (CLI) | payer MEDICARE ==
[2022-05-21 13:29] LABS: African American GFR (CKD) >90 (>60 ml/min/1.73 sqM); Blood Urea Nitrogen 13 mg/dL (9-20); Non-African American GFR(CKD) >90 (>60 ml/min/1.73 sqM)
--- NOTE | 2022-05-21 14:45 | CT ---
EXAMINATION TYPE: CT ChestAbdPelvis wo/w con DATE OF EXAM: 05/21/2022 COMPARISON: PET CT February 24, 2022 and older studies. HISTORY: Rectal cancer CT DLP: 3925 mGycm. Automated Exposure Control for Dose Reduction was Utilized. CONTRAST: CT scan of the thorax, abdomen and pelvis is performed with oral and without and with IV Contrast, pa tient injected with 100 mL of Isovue 300. FINDINGS: LUNGS: Scattered thin-walled cysts throughout the bilateral lung parenchyma redemonstrated. No suspic ious pulmonary nodules or masses. No pleural effusion or pneumothorax seen bilaterally. MEDIASTINUM: There are no greater than 1 cm hilar or mediastinal lymph nodes. No cardiomegaly or pe ricardial effusion is seen. Post-CABG changes with sternal wires and mediastinal clips are redemonst rated. OTHER: Stable right subclavian Mediport catheter. LIVER/GB: Subcentimeter hypodense lesions scattered throughout the liver are too small to further adam racterize but presumably benign. PANCREAS: No significant abnormality is seen. SPLEEN: No significant abnormality is seen. ADRENALS: No significant abnormality is seen. KIDNEYS: Bilateral nonobstructing renal calculi are redemonstrated on noncontrast images. BOWEL: Persistent right-sided ileostomy and peristomal hernia. Oral contrast does not reach level of ostomy. There is persistent colon with scattered pelvic phleboliths. Surgical changes to the rectum w ith sutures axial image 125 are redemonstrated. Abnormal soft tissue presacral space axial image 116 stable or less prominent from most recent CT. GENITAL ORGANS: No gross abnormality seen. LYMPH NODES: No new greater than 1cm abdominal or pelvic lymph nodes are appreciated. OSSEOUS STRUCTURES: No significant abnormality is seen. OTHER: No significant additional abnormality is seen. IMPRESSION: No suspicious new mass or adenopathy to suggest active neoplastic recurrence.
== END | disposition home or self-care (01) ==
LOC: RADCTMAIN 12:13
PROVIDERS: ATTEND Internal Medicine Hematology & Oncology
DX: C20 Malignant neoplasm of rectum (principal); I10 Essential (primary) hypertension; G62.0 Drug-induced polyneuropathy; R21 Rash and other nonspecific skin eruption
CPT/HCPCS: 82565; 84520; 71270; 74178; 36415; Q9967

== ENCOUNTER → 2022-06-18 | Outpatient (CLI) | payer MEDICARE ==
--- NOTE | 2022-06-18 11:53 | FL ---
EXAMINATION TYPE: FL barium enema DATE OF EXAM: 06/18/2022 COMPARISON: Most recent CT May 21, 2022 HISTORY: History of rectal cancer diagnosed roughly 2 years ago status post surgical and radiation tr eatment. TECHNIQUE: A single contrast enema study is performed utilizing Gastrografin as requested. A total of 40 seconds of fluoroscopic time was utilized during procedure and 9 images obtained. FINDINGS: Machine Shop Worker view of the abdomen shows overall non-obstructive bowel gas pattern. Bilateral nephr olithiasis is redemonstrated. A few scattered bilateral pelvic phleboliths are redemonstrated. Right lower quadrant ileostomy noted. Case discussed with ordering surgeon by telephone. Goal is to evaluate the low rectum at the site of surgery prior to re-anastomosis. Patient had recent colonoscopy to evaluate remainder of colon. Limited enema study performed. Catheter is inserted. Successful contrast opacification of the rectum and distal sigmoid colon. There is leak of contrast from the distal rectum. There is no contrast extr avasation into the retroperitoneum to suggest leak at site of surgery distal rectum/lower pelvis. At this point procedure was terminated. Patient tolerated procedure well without any immediate complication. Patient left hospital in stable and satisfactory condition IMPRESSION: No suture perforation or obvious distal leak.
== END | disposition home or self-care (01) ==
LOC: RADFLMAIN 09:04
PROVIDERS: ATTEND Surgery
DX: C20 Malignant neoplasm of rectum (principal)
CPT/HCPCS: 74270; Q9963

== ENCOUNTER → 2023-09-04 | Outpatient (CLI) | payer MEDICARE ==
[2023-09-04 15:07] LABS: HCT 47.1 % (39.6-50.0); HGB 15.8 g/dL (13.0-17.0); MCHC 33.5 g/dL (32.0-37.0); MCV 98.3 FL (80.0-97.0); Mean Platelet Volume 9.5 FL (9.5-12.2); NRBC Per 100 WBC 0 X 10*3/uL (0.00-0.01); Platelet Count 213 X 10*3/uL (140-440); RBC 4.79 X 10*6/uL (4.40-5.60); RDW 13.8 % (11.5-14.5); WBC 7.13 X 10*3/uL (4.50-10.00)
[2023-09-04 15:18] LABS: Blood Urea Nitrogen 14.7 mg/dL (9.0-27.0); Carbon Dioxide 21.5 mmol/L (21.6-31.8); Chloride 109 mmol/L (96-109); Potassium 4.4 mmol/L (3.5-5.5); Sodium 140 mmol/L (135-145)
== END | disposition home or self-care (01) ==
LOC: LABPAT 10:31
PROVIDERS: ATTEND Internal Medicine Interventional Cardiology
DX: Z01.812 Encounter for preprocedural laboratory examination (principal); I25.810 Atherosclerosis of coronary artery bypass graft(s) without angina pectoris
CPT/HCPCS: 36415; 80051; 82565; 84520; 85027

== ENCOUNTER 2023-09-10 11:24 | Day surgery (SDC) | payer MEDICARE ==
[2023-09-08 10:48] VITALS: BMI 31.0
[~2023-09-10 11:24] MED LIST changes: +ALPRAZolam 0.25 MG TAB PO PRN; +ALPRAZolam 0.5 MG TAB PO PRN; +ASPIRIN 325 MG TAB PO STA; +ATORVASTATIN 80 MG TAB PO STA; +HEPARIN SODIUM,PORCINE (1 ML) 2,500 UNIT in SODIUM CHLORIDE 0.9% 250 ML IRRIGATION PRN; +HEPARIN SODIUM,PORCINE 10,000 UNIT in SODIUM CHLORIDE 0.9% 1,000 ML IRRIGATION PRN; -LACTATED RINGERS 1,000 ML IV SCH; -LIDOCAINE 1% 20 ML VIAL (10MG/ML) FOR IV START INTRADERMA PRN; +NITROGLYCERIN SL TABS 0.4 MG TAB SUBLINGUAL PRN
[2023-09-10] MEDS: SODIUM CHLORIDE 0.9% 1,000 ML in EMPTY BAG 1 BAG IV SCH (11:48)
[2023-09-10 12:12] VITALS: TEMP 97.7
[2023-09-10] MEDS ORDERED: LIDOCAINE 1% INJ 10MG/ML (20 ML MDV) ONE (12:57)
[2023-09-10] MEDS ORDERED: HEPARIN SODIUM 1,000 UN/ML (10ML VL) ONE (13:03)
[2023-09-10] MEDS: MIDAZOLAM 2 MG/2 ML VIAL IVP ONE ×2 (13:28→13:35)
[2023-09-10] MEDS: HYDROmorphone 0.5 MG/0.5 ML SYRINGE IVP ONE (13:43)
[2023-09-10] MEDS: LIDOCAINE 1% INJ 10MG/ML (20 ML MDV) SQ ONE (13:43)
[2023-09-10] MEDS: IOPAMIDOL-370 100ML BTL INJ ONE ×2 (14:10→14:29)
[2023-09-10] MEDS ORDERED: RX INFO: IV CONTRAST WAS GIVEN 1 EACH MISC MISCELLANE PRN (14:37)
[2023-09-10 16:03] VITALS: RESP 16
--- NOTE | 2023-09-10 17:43 | CA ---
Transthoracic Echo Report Name: Holden Sears Age: 52 Gender: M : 1970 Exam Date: 09/10/2023 14:56 Exam Location: [facility] Ht (in): 69 Wt (lb): 210 Ordering Physician: Patito Greenwood MD ([id number]) Attending/Referring Phys: Su[employer] Dred[employer] Dumping Supervisor Yoli Stephenson RDCS Procedure CPT: Indications: evaluate wall motion Cardiac Hx: Technical Quality: Fair Contrast 1: Total Dose (mL): Contrast 2: Total Dose (mL): MEASUREMENTS (Male / Female) Normal Values 2D ECHO LV Diastolic Diameter PLAX 4.1 cm 4.2 - 5.9 / 3.9 - 5.3 cm LV Systolic Diameter PLAX 2.4 cm IVS Diastolic Thickness 1.4 cm 0.6 - 1.0 / 0.6 - 0.9 cm LVPW Diastolic Thickness 1.3 cm 0.6 - 1.0 / 0.6 - 0.9 cm LV Relative Wall Thickness 0.6 RV Internal Dim ED PLAX 3.9 cm LA Volume 83.8 cm??? 18 - 58 / 22 - 52 cm??? LA Volume Index 38.4 cm???/m??? 16 - 28 cm???/m??? M-MODE Aortic Root Diameter MM 3.5 cm LA Systolic Diameter MM 3.7 cm LA Ao Ratio MM 1.0 AV Cusp Separation MM 1.8 cm DOPPLER AV Peak Velocity 116.0 cm/s AV Peak Gradient 5.4 mmHg AV Mean Velocity 83.1 cm/s AV Mean Gradient 3.0 mmHg AV Velocity Time Integral 27.5 cm LVOT Peak Velocity 82.4 cm/s LVOT Peak Gradient 2.7 mmHg LVOT Velocity Time Integral 18.3 cm MV Area PHT 5.0 cm??? Mitral E Point Velocity 72.1 cm/s Mitral A Point Velocity 48.3 cm/s Mitral E to A Ratio 1.5 MV Deceleration Time 152.4 ms MV E' Velocity 7.8 cm/s Mitral E to MV E' Ratio 9.3 TR Peak Velocity 207.2 cm/s TR Peak Gradient 17.2 mmHg Right Ventricular Systolic Press 21.8 mmHg FINDINGS Left Ventricle Mildly increased septal wall thickness. Abnormal (paradoxical) septal motion consistent with postoperative state. Left ventricular ejection fraction is estimated at 45-50 %. Right Ventricle Mild right ventricular dilatation. Right ventricular systolic pressure within normal limits. Right Atrium Normal right atrial size. Left Atrium Moderately increased left atrial volume. Mildly increased left atrial area. Mitral Valve Structurally normal mitral valve. Mild mitral annular calcification. Mild mitral regurgitation. Aortic Valve Trileaflet aortic valve. No aortic valve stenosis or regurgitation. Tricuspid Valve Structurally normal tricuspid valve. Mild tricuspid regurgitation. Pulmonic Valve Structurally normal pulmonic valve. Pericardium No pericardial effusion. Aorta Normal size aortic root and proximal ascending aorta. CONCLUSIONS Mild LV systolic dysfunction mild mitral regurgitation Previewed by: Dr. Calvin Qiu MD (Electronically Signed) Final Date: 10 September 2023 17:42
[2023-09-10 18:31] VITALS: BP 107/59; PULSE 67
[2023-09-10] MEDS: SODIUM CHLORIDE 0.9% 1,000 ML IV ONE (18:54)
--- NOTE | 2023-09-11 01:11 | CC ---
CARDIAC CATHETERIZATION REPORT PROCEDURES PERFORMED: Left heart catheterization, coronary angiography, and selective injection of bypass grafts and left internal mammary artery graft. PERFORMED BY: Dr. Aman Greenwood. ANESTHESIA: Moderate conscious sedation time was 52 minutes. Patient was administered Versed. Oxygen saturation, hemodynamics, and EKG were monitored closely. CLINICAL INFORMATION: Mr. Holden Sears is a 52-year-old gentleman with a history of CAD, prior bypass surgery, and PCI. He also has developed some rectal cancer for which he had chemotherapy. He has disabling arthritis and has issues with his back as well as his hip arthritis. He has been having exertional shortness of breath and had a positive stress test with inferior wall reversible defect in addition to a fixed component and also distal anteroapical area of hypokinesia of a fixed defect. Because of symptoms and abnormal stress test, he was advised coronary angiography. Ejection fraction was about 50% on the Lexiscan stress test. In 2014, I performed stenting of a vein graft to the acute marginal branch of RCA with a drug-eluting stent of 2.5 caliber. He had a vein graft to the obtuse marginal as well as to the RCA, both of which were patent. ZIMMER to LAD was also patent. PROCEDURE NOTE: Under local anesthesia and strict aseptic precautions, a 6-Chinese introducer was placed in the right femoral artery. A standard left Alexis catheter was used to perform selective coronary angiography of the left system. I used a Johnna catheter for the ZIMMER injection and I also was able to inject the inaja RCA as well as the vein graft to the RCA. An AR2 catheter was used to perform selective coronary angiography of the vein graft to the RCA and a fairly selective angiography of the vein graft to the obtuse marginal. On multiple attempts, I could not cannulate the acute marginal graft, but subselective injection suggested as occluded. The Johnan catheter was used to check LV end-diastolic pressure which was elevated at 18 mmHg without any gradient across aortic valve. CARDIAC CATHETERIZATION FINDINGS: 1. Hemodynamics: The left ventricular end-diastolic pressure was 18 mmHg without any gradient across aortic valve. 2. Coronary Angiography Findings: Left main coronary artery, this is a long patent vessel, no significant disease, bifurcates into LAD and circumflex. 3. Left Anterior Descending Coronary Artery: This is totally occluded after a septal branch. The septal branch has a 70% to 80% eccentric narrowing best in the SAMOAN projection. 4. Left posterior circumflex coronary artery. This vessel is totally occluded after a groove branch and a small obtuse marginal branch. 5. Right Coronary Artery: This vessel is totally occluded without much antegrade flow. 6. Saphenous Vein Graft to the RCA: This vessel is totally occluded in the proximal portion, seen as a stump. 7. Saphenous vein graft to the obtuse marginal branch of circumflex: This subselective injection was performed. It appears to be patent with a decent flow into the obtuse marginal. 8. Saphenous vein graft to the acute marginal branch of RCA. Multiple injections were performed, appears to be totally occluded, but not a convincing angiogram to suggest that. I used quite a bit of contrast and therefore I did not persist and I am presuming that the saphenous vein graft to acute marginal is occluded. 9. Left internal mammary artery graft to LAD. This graft is widely patent at its origin, course and insertion into the LAD. It also passes a good-sized diagonal branch and then into the LAD, the distal LAD has diffuse disease, but no significant disease in the bypass graft and fairly decent flow. 10.Conus branch. There is a conus branch that has a separate origin superior to the RCA origin and this branch gives off a conus branch which is much larger than usual and also there is another acute marginal branch that comes off from the separate origin and this also supplies in the RCA distribution and has no significant disease. When I injected into it, he had a run of ventricular tachycardia, the conus branch itself has mild diffuse disease and also secondary branch has a 50% to 60% blockage. This conus vessel gives another branch that comes down in the RCA distribution, probably in acute marginal distribution and that vessel appears to be patent with decent flow. On previous angiograms, I did not appreciate this acute marginal branch or probably it was small and not significant. FINAL IMPRESSION: This patient has a total occlusion of LAD after septal branch, total occlusion of inaja circumflex nondominant vessel. Dominant RCA is totally occluded. Vein graft to the RCA as well as vein graft to the acute marginal of RCA are totally occluded. Vein graft to the acute marginal was not well seen. The vein graft to the obtuse marginal is patent. ZIMMER to LAD is patent. There is a separate conus branch that has a fair distribution that supplies the acute marginal territory and that appears to be widely patent with a decent flow, but some diffuse disease in the conus branch noted. The septal branch is providing a fair amount of collaterals to the distal branches of RCA and compared to the previous vessel this has become a much larger vessel. RECOMMENDATIONS: I will pursue aggressive medical therapy with risk factor modification, but given the fact there is a significant lesion in the septal branch which is providing main collaterals to the RCA distribution, I will consider intervention after due discussion with the patient as an outpatient. He received nearly 180 mL of dye and therefore I did not persist. Findings were discussed with the patient and and I expect he will be discharged later on today after hydration and also will be orally hydrated and I will see him next Thursday on September 15 at 1:45 p.m. Moderate conscious sedation time was 52 minutes. The patient was administered Versed. Oxygen saturation, hemodynamics, and EKG were monitored closely. FERCHO / MATIAS: [id number] /
== END 2023-09-10 18:51 | disposition home or self-care (01) ==
LOC: CATHCVL 11:24
PROVIDERS: ATTEND Internal Medicine Interventional Cardiology
DX: I25.10 Atherosclerotic heart disease of native coronary artery without angina pectoris (principal); I25.82 Chronic total occlusion of coronary artery; Z95.1 Presence of aortocoronary bypass graft; Z95.5 Presence of coronary angioplasty implant and graft
CPT/HCPCS: 93306; 93459; C1760; C1769 ×2; C1894; J2250; J2001; J1170; Q9967

== ENCOUNTER → 2023-09-18 | Outpatient (CLI) | payer MEDICARE ==
--- NOTE | 2023-09-18 12:27 | CT ---
EXAMINATION: CT CHEST, ABDOMEN AND PELVIS WITH IV CONTRAST DATE OF EXAMINATION: 09/18/2023. COMPARISON: 09/03/2022.. INDICATION: Colorectal cancer follow-up PROCEDURE: Axial CT of the chest, abdomen and pelvis was performed following the intravenous adminis tration of 70 ml Isovue 300. Coronal and sagittal reformats were performed. CT dose lowering techniqu es were used, to include: automated exposure control, adjustment for patient size, and/or use of iter ative reconstruction. FINDINGS: CHEST: CHEST WALL: There is a right-sided Mediport with the catheter tip in the right atrium. Mediastinum and Milly: There is no axillary, mediastinal or hilar lymphadenopathy. Pleural and Pericardial spaces: There are no pleural or pericardial effusions. Cardiovascular: The thoracic aorta is normal in size without evidence of aneurysm or dissection. Pulmonary Artery: There are no central pulmonary arterial filling defects. Lung Parenchyma and Airways: There is mild cystic changes seen scattered throughout the lungs bilater ally which may relate to emphysematous changes. There is no focal area of consolidative change. ABDOMEN: Liver and Biliary system: Subcentimeter hypodensities in the left lobe of liver too small to fully c haracterize and unchanged. Unchanged cyst in the right lobe of liver. No new liver lesions are identi fied. Adrenal glands: Normal. Kidneys and ureters: 5.7 mm cortical stone in the interpolar region of the right kidney. 4 mm stone in the interpolar region of the left kidney and 2 mm stone in the upper pole of the left kidney. The kidneys otherwise appear unremarkable. Spleen: Normal. Pancreas: Normal. Gallbladder: Normal. Lymph nodes, Peritoneum and mesentery: There is no mesenteric or retroperitoneal lymphadenopathy. Gastrointestinal tract: There are no dilated loops of bowel or free intraperitoneal air. . The appe ndix is normal. There is an anal rectal anastomosis. Aorta/IVC: There is mild vascular calcification throughout the abdominal aorta without evidence of aneurysmal dilation or dissection.. IVC normal. Abdominal wall: Fat-containing incisional hernia at the level of the previous right lower quadrant o stomy. Small fat-containing umbilical hernia is also seen.. PELVIS: Fluid: There is no free fluid in the pelvis. Lymph Nodes: There is no pelvic or inguinal lymphadenopathy.. Urinary bladder: Normal. BONES: There are no osseous destructive lesions.. ADDITIONAL SIGNIFICANT FINDINGS: None. IMPRESSION: 1. No definitive evidence of metastatic disease within the chest, abdomen or pelvis. 2. Additional incidental findings noted above.
== END | disposition home or self-care (01) ==
LOC: RADCTMAIN 09:09
PROVIDERS: ATTEND Internal Medicine Hematology & Oncology
DX: C20 Malignant neoplasm of rectum (principal); I10 Essential (primary) hypertension; G62.0 Drug-induced polyneuropathy; R21 Rash and other nonspecific skin eruption
CPT/HCPCS: 71260; 74177; Q9967

== ENCOUNTER → 2023-09-23 | Outpatient (CLI) | payer MEDICARE ==
[2023-09-23 16:58] LABS: HCT 44.8 % (39.6-50.0); HGB 14.9 g/dL (13.0-17.0); MCH 32.1 pg (27.0-32.0); MCHC 33.3 g/dL (32.0-37.0); MCV 96.6 FL (80.0-97.0); Mean Platelet Volume 9.3 FL (9.5-12.2); NRBC Per 100 WBC 0 X 10*3/uL (0.00-0.01); Platelet Count 201 X 10*3/uL (140-440); RBC 4.64 X 10*6/uL (4.40-5.60); WBC 7.13 X 10*3/uL (4.50-10.00)
[2023-09-23 17:06] LABS: Blood Urea Nitrogen 15.6 mg/dL (9.0-27.0); Carbon Dioxide 23.4 mmol/L (21.6-31.8); Chloride 109 mmol/L (96-109); Potassium 4.4 mmol/L (3.5-5.5); Sodium 142 mmol/L (135-145)
== END | disposition home or self-care (01) ==
LOC: LABPAT 09:50
PROVIDERS: ATTEND Internal Medicine Interventional Cardiology
DX: Z01.812 Encounter for preprocedural laboratory examination (principal); I25.2 Old myocardial infarction; I25.810 Atherosclerosis of coronary artery bypass graft(s) without angina pectoris
CPT/HCPCS: 36415; 80051; 82565; 84520; 85027

== ENCOUNTER 2023-09-29 07:47 | Day surgery (SDC) | payer MEDICARE ==
[2023-09-29] MEDS: SODIUM CHLORIDE 0.9% 1,000 ML IV ONE ×2 (07:35→08:01)
[~2023-09-29 07:47] MED LIST changes: -ASPIRIN 325 MG TAB PO STA; -ATORVASTATIN 80 MG TAB PO STA; -HEPARIN SODIUM,PORCINE (1 ML) 2,500 UNIT in SODIUM CHLORIDE 0.9% 250 ML IRRIGATION PRN; -HEPARIN SODIUM,PORCINE 10,000 UNIT in SODIUM CHLORIDE 0.9% 1,000 ML IRRIGATION PRN
[2023-09-29] MEDS ORDERED: VERAPAMIL 2.5 MG/ML 2 ML AMP ONE (09:11)
[2023-09-29] MEDS ORDERED: HEPARIN SODIUM 1,000 UN/ML (10ML VL) ONE (09:11)
[2023-09-29] MEDS: MIDAZOLAM 2 MG/2 ML VIAL IVP ONE (09:45)
[2023-09-29] MEDS: LIDOCAINE 1% INJ 10MG/ML (20 ML MDV) SQ ONE (09:46)
[2023-09-29] MEDS: HYDROmorphone 0.5 MG/0.5 ML SYRINGE IVP ONE ×2 (09:55→10:24)
[2023-09-29] MEDS: PHENYLEPHRINE-0.9% NACL SYG 1,000 MCG/10 ML SYRINGE IVP ONE (09:58)
[2023-09-29] MEDS: HEPARIN SODIUM 1,000 UN/ML (10ML VL) IV ONE (10:03)
[2023-09-29] MEDS: IOPAMIDOL-370 100ML BTL INJ ONE ×2 (10:17→10:26)
[2023-09-29] MEDS ORDERED: CLOPIDOGREL 75 MG TAB ONE (10:20)
[2023-09-29] MEDS: CLOPIDOGREL 75 MG TAB PO ONE (10:24)
[2023-09-29] MEDS ORDERED: HYDROcodone/APAP 10-325MG 1 EACH TAB PO PRN (10:38)
[2023-09-29] MEDS ORDERED: NITROGLYCERIN SL TABS 0.4 MG TAB SUBLINGUAL PRN (10:38)
[2023-09-29] MEDS ORDERED: RX INFO: IV CONTRAST WAS GIVEN 1 EACH MISC MISCELLANE PRN ×2 (10:48→10:51)
[2023-09-29] MEDS ORDERED: ATROPINE SULFATE 0.1 MG/ML 10ML SYRINGE IV PRN (10:51)
[2023-09-29] MEDS ORDERED: ZOLPIDEM 5 MG TAB PO PRN (10:51)
[2023-09-29] MEDS ORDERED: MAG HYDROX/AL HYDROX/SIMETH 30 ML CUP PO PRN (10:51)
[2023-09-29] MEDS ORDERED: ACETAMINOPHEN TAB 325 MG TAB PO PRN (10:52)
[2023-09-29] MEDS ORDERED: SODIUM CHLORIDE 0.9% 1,000 ML IV SCH (11:00)
[2023-09-29] MEDS: ASPIRIN 325 MG TAB PO STA (16:10)
[2023-09-29] MEDS: GABAPENTIN 300 MG CAP PO SCH (16:11)
[2023-09-29] MEDS: HYDROcodone/APAP 5-325MG 1 EACH TAB PO PRN (16:14)
[2023-09-29] MEDS: SODIUM CHLORIDE 0.9% 1,000 ML in EMPTY BAG 1 BAG IV SCH ×2 (19:01)
--- NOTE | 2023-09-29 21:22 | PTCA ---
PERCUTANEOUSTRANS CORORONARY ANGIOGRAPHY PROCEDURE PERFORMED: PTCA and stenting of major septal branch with a drug-eluting stent. PERFORMED BY: Dr. Aman Greenwood. ANESTHESIA: Moderate conscious sedation time was 44 minutes. Patient was administered Versed and Dilaudid. Oxygen saturation, hemodynamics and EKG were monitored closely. CLINICAL INFORMATION: Mr. Holden Sears is a 52-year-old gentleman with a known history of CAD, previous bypass surgery that was performed in 2012. At that time, he had an aortocoronary bypass surgery that was performed in September 2011. At that time, he had a ZIMMER to LAD, vein graft to the 1st obtuse marginal, vein graft to RCA, and vein graft to the acute marginal branch of RCA. I performed stenting of the vein graft to acute marginal branch of RCA in 2014, but because of symptoms of angina and a positive stress test with inferior wall reversible defect, cardiac cath was performed on August, which revealed that his left main was normal. LAD was 100% septal, had 85% stenosis. RCA and circumflex were occluded. RCA was dominant. Vein graft to the RCA as well as acute marginal grafts were both occluded, so both the graft to the acute marginal branch of RCA and RCA itself were occluded. Vein graft to the obtuse marginal and ZIMMER to LAD were patent. I recommended PCI of the [place] septal branch because that was providing circulation to the distal branches of RCA. He was brought in for elective procedure. The patient and understood the rationale, risks, benefits, options, and wished to proceed with the procedure. PROCEDURE NOTE: Under strict aseptic precautions and local anesthesia, I attempted right radial access, but the pulse was very feeble and therefore could not get access and then switched over to the right femoral approach. Strict aseptic precautions and local anesthesia were used to secure access into the right femoral artery. A 6-Cymraes introducer was placed. A JL4 guide catheter was used to cannulate the left coronary artery. A run-through wire was used to cross the lesion in the septal and kept distally. A 2.25 caliber 12 mm NC Trek balloon was used to pre-dilate the lesion. I then deployed a 12 mm long 2.5 caliber Xience stent. Excellent angiographic result was achieved. The patient did not have any significant chest pain or EKG changes. The sheath was taken out and Angio- Seal device used to secure hemostasis and he was sent to the room in a stable condition. He received 6000 units of heparin and ACT was 300. He also received 600 mg of Plavix as a loading dose. He will be on aspirin 81 mg daily and Plavix 75 mg daily without interruption for 1 year. He was sent to the room in stable condition. The details were discussed with the patient's . I expect he will be discharged tomorrow. FERCHO / MATIAS: [id number] /
[2023-09-29] MEDS: SODIUM CHLORIDE 0.9% 1,000 ML IV SCH (21:48)
[2023-09-29] MEDS: MORPHINE SULFATE ER 15 MG TABLET PO SCH (22:52)
[2023-09-29] MEDS: TOPIRAMATE 100 MG TAB PO SCH (22:52)
[2023-09-29] MEDS: METOPROLOL TARTRATE 50 MG TAB PO SCH (22:53)
[2023-09-29] MEDS: CYCLOBENZAPRINE 10 MG TAB PO SCH (22:53)
[2023-09-29] MEDS: NORTRIPTYLINE 25 MG CAP PO SCH (22:53)
[2023-09-30 03:45] VITALS: RESP 16
[2023-09-30 06:55] LABS: Basophils % (A) 1 %; Eosinophils # (A) 0.4 k/uL (0-0.7); Eosinophils % (A) 6 %; HCT 47.8 % (39.0-53.0); HGB 15.1 gm/dL (13.0-17.5); Lymphocytes # (A) 1.8 k/uL (1.0-4.8); Lymphocytes % (A) 29 %; MCH 31.9 pg (25.0-35.0); MCHC 31.6 g/dL (31.0-37.0); MCV 100.9 fL (80.0-100.0); Macrocytosis Slight; Mean Platelet Volume 7.2; Monocytes # (A) 0.5 k/uL (0-1.0); Monocytes % (A) 9 %; Neutrophils # (A) 3.2 k/uL (1.3-7.7); Neutrophils % (A) 53 %; Platelet Count 183 k/uL (150-450); RBC 4.74 m/uL (4.30-5.90); RDW 13.5 % (11.5-15.5); WBC 6.1 k/uL (3.8-10.6)
[2023-09-30 07:13] LABS: African American GFR (CKD) >90 (>60 ml/min/1.73 sqM); Anion Gap 9 mmol/L; Blood Urea Nitrogen 14 mg/dL (9-20); Carbon Dioxide 15 mmol/L (22-30); Chloride 119 mmol/L (98-107); Glucose 82 mg/dL (74-99); Non-African American GFR(CKD) >90 (>60 ml/min/1.73 sqM); Potassium 4.1 mmol/L (3.5-5.1); Sodium 143 mmol/L (137-145)
[2023-09-30 08:18] VITALS: BP 109/73; PULSE 61; TEMP 98.4
[2023-09-30] MEDS: FLUTICASONE 50MCG/SPRAY NASAL 16GM EA NOSTRIL SCH (08:23)
[2023-09-30] MEDS: CLOPIDOGREL 75 MG TAB PO SCH (08:24)
[2023-09-30] MEDS: ISOSORBIDE MONONITRATE ER 30 MG TAB.ER.24H PO SCH (08:24)
[2023-09-30] MEDS: ATORVASTATIN 80 MG TAB PO SCH (08:25)
[2023-09-30] MEDS: ASPIRIN 81 MG PO SCH (08:25)
[2023-09-30] MEDS ORDERED: ASPIRIN 81 MG PO SCH (09:00)
--- NOTE | 2023-09-30 12:34 | DS ---
DISCHARGE SUMMARY DIAGNOSES: 1. Unstable angina. 2. History of coronary artery disease with prior bypass surgery. 3. Hypertension. 4. Hyperlipidemia. 5. History of degenerative joint disease. 6. History of rectal cancer. HOSPITAL COURSE: Mr. Holden Sears was brought in for elective PCI of a major septal branch of LAD that was supplying the right coronary territory with good collaterals. He had a diagnostic catheterization on August and he was advised intervention and after due discussion regarding risks, benefits, options, he was brought in for the procedure yesterday. Initially I attempted the procedure from the right radial, I could not get to cannulate the right radial artery. Switched over to right femoral, performed PCI of major septal branch with a 2.5 caliber Xience stent of 12 mm length. Excellent angiographic result. Uneventful postprocedure course. He is doing well this morning. PHYSICAL EXAMINATION: VITAL SIGNS: Stable. NECK: No JVD. HEART: S1, S2 heard normally. LUNGS: Clear. ABDOMEN: Unremarkable. LOWER EXTREMITIES: Unremarkable. Right radial and right femoral sites were clean and dry. Labs and EKG are unremarkable. He will be discharged today and I will see him in the office on Thursday, the at 8:45 a.m. Discharge instructions regarding activity, diet, and medications were given. He will be on aspirin and Plavix without interruption for 1 year. He will be on metoprolol tartrate 50 mg b.i.d. instead of 75 b.i.d. and he will be reducing his Imdur to 30 mg daily. MMJJL / NUNUN: [id number] /
== END 2023-09-30 11:53 | disposition home or self-care (01) ==
LOC: CATHCVL 07:47 → 6NMEDSUR 10:25 → CATHCVL 09-30 11:53
PROVIDERS: ATTEND Internal Medicine Interventional Cardiology
DX: I25.110 Atherosclerotic heart disease of native coronary artery with unstable angina pectoris (principal); I10 Essential (primary) hypertension; E78.5 Hyperlipidemia, unspecified; Z85.048 Personal history of other malignant neoplasm of rectum, rectosigmoid junction, and anus; Z87.898 Personal history of other specified conditions; Z95.1 Presence of aortocoronary bypass graft; Z95.5 Presence of coronary angioplasty implant and graft; Z79.82 Long term (current) use of aspirin; Z79.899 Other long term (current) drug therapy
CPT/HCPCS: 99152; 99153 ×2; 80048; 85025; C9600; C1760; C1887; C1769 ×4; C1894 ×2; C1874; C1725; J2250; J2001; J1644; J1170; Q9967; J2371

== ENCOUNTER 2024-03-02 10:15 | Day surgery (SDC) | payer MEDICARE ==
[2024-03-02] MEDS ORDERED: PROPOFOL 10 MG/ML 20 ML VIAL IV ONE (12:24)
[2024-03-02] MEDS ORDERED: LACTATED RINGERS 1,000 ML BAG ONE (12:24)
[2024-03-02] MEDS ORDERED: IBUPROFEN 200 MG TAB ONE ×2 (14:39)
--- NOTE | 2024-03-04 15:57 | PCN ---
PROCEDURE NOTE REQUESTING PHYSICIANS: Dr. Aguilera and Dr. Palmer Rhoades. BRIEF HISTORY: The patient is a 53-year-old pleasant white male scheduled to undergo colonoscopy as part of screening for colon cancer. He was diagnosed with rectal cancer in 2020 and is status post radiation and chemotherapy followed by surgery. He is scheduled for a screening colonoscopy today. PROCEDURE PERFORMED: Colonoscopy with snare polypectomy. PREOPERATIVE DIAGNOSIS: Screening for colon cancer and prior history of rectal cancer diagnosed in 2020. ANESTHESIA: IV sedation per Anesthesia. DESCRIPTION OF PROCEDURE: After informed consent was obtained from the patient, he was brought in to the endoscopy unit. IV conscious sedation was administered by Anesthesia under continuous monitoring. Initial digital rectal examination was normal. The Olympus CF-190 video colonoscope was then into the rectum, gradually advanced to the cecum. Careful examination was performed. As the scope was gradually being withdrawn, the ileocecal valve and appendiceal orifice were visualized and appeared normal. The prep was excellent. The mucosa of the cecum appeared normal. In the ascending colon, there was a 1 cm broad-based polyp removed by snare polypectomy. Ascending colon, transverse colon, descending colon, and sigmoid colon appeared normal. In the distal rectum, the anastomosis was located at 2 cm from the anal verge that appeared normal. The patient tolerated the procedure well. IMPRESSION: 1. Distal rectal anastomosis appeared normal. 2. A 1 cm ascending colon polyp, status post cold snare polypectomy. 3. The colon appeared normal. RECOMMENDATIONS: Findings of this examination were discussed with the patient as well as the family. He was advised to follow up with the biopsy results and have a repeat colonoscopy in 3 years as part of surveillance of prior history of rectal cancer. MMODL / IJN: [id number] /
== END 2024-03-02 15:00 ==
LOC: ORWHC2ENDO 10:15
PROVIDERS: ATTEND Internal Medicine Gastroenterology
DX: Z12.11 Encounter for screening for malignant neoplasm of colon (principal); D12.2 Benign neoplasm of ascending colon; I10 Essential (primary) hypertension; E78.5 Hyperlipidemia, unspecified; J44.9 Chronic obstructive pulmonary disease, unspecified; G47.33 Obstructive sleep apnea (adult) (pediatric); I25.2 Old myocardial infarction; G43.909 Migraine, unspecified, not intractable, without status migrainosus; K21.9 Gastro-esophageal reflux disease without esophagitis; Z87.891 Personal history of nicotine dependence; Z85.048 Personal history of other malignant neoplasm of rectum, rectosigmoid junction, and anus; Z79.02 Long term (current) use of antithrombotics/antiplatelets; Z95.5 Presence of coronary angioplasty implant and graft; Z79.899 Other long term (current) drug therapy; Z91.030 Bee allergy status; Z88.8 Allergy status to other drugs, medicaments and biological substances
CPT/HCPCS: 45380; 88305

== ENCOUNTER → 2024-04-01 | Outpatient (CLI) | payer MEDICARE ==
--- NOTE | 2024-04-01 12:11 | CT ---
EXAMINATION TYPE: CT ChestAbdPelvis w con DATE OF EXAM: 04/01/2024 COMPARISON: 09/18/2023 HISTORY: colorectal CA f/u CT DLP: 1332 mGycm Automated exposure control for dose reduction was used. CONTRAST: CT scan of the chest, abdomen and pelvis is performed with Oral Contrast and with IV Contrast, patien t injected with 100 mL of Isovue 370. FINDINGS: CT chest: There is a Mediport on the right terminating the SVC/RA junction. There is no suspicious lung mass or nodule. There are multiple innumerable small cysts within the paresh gs is stable compared to previous. There is no abnormal airspace/consolidative density or abnormal interstitial density. There is no pleural effusion, pleural thickening or pneumothorax. The great vessels and chest are normal there is no mediastinal, hilar or axillary adenopathy. No focal osseous lesions are seen. CT abdomen and pelvis: Gallbladder is normal without distention, pericholecystic fluid, wall thickening or gallstone. There is no biliary ductal dilatation. There are 2 stable low-density lesions within the liver likely representing liver cysts. No new liver focal abnormality is seen. There is no focal mass or organomegaly involving the pancreas, spleen or adrenal glands There is no solid renal mass or hydronephrosis. There is a stable nonobstructing 9 mm right renal brittani culus. There is a stable derek-like nonobstructing left renal calculus. There is no retroperitoneal a denopathy or hemorrhage in the caliber of the abdominal aorta is normal. The bowel loops are normal in caliber and there is no dilatation or obstruction. No inflammatory driscoll ges identified in the bowel wall and mesentery. There is anastomosis in the rectosigmoid region. There is a small incisional hernia in the right abdomen containing only fat. This was the location of prior ostomy. There is no free intracranial air or fluid. There is no pelvic mass or adenopathy. There is no free fluid within the pelvis. No focal osseous lesions are seen. Soft tissue the abdomen and pelvis are normal. IMPRESSION: Stable, CT chest, abdomen and pelvis. No evidence of recurrent or metastatic disease. [facility], , 04/01/2024 12:09 PM
== END | disposition home or self-care (01) ==
LOC: RADCTMAIN 09:41
PROVIDERS: ATTEND Internal Medicine Hematology & Oncology
DX: C20 Malignant neoplasm of rectum
CPT/HCPCS: 71260; 74177

== ENCOUNTER → 2024-10-12 | Outpatient (CLI) | payer MEDICARE ==
--- NOTE | 2024-10-12 15:03 | CT ---
EXAMINATION TYPE: CT ChestAbdPelvis w con DATE OF EXAM: 10/12/2024 11:11 AM COMPARISON: 04/01/2024 CLINICAL INDICATION: Male, 53 years old with history of C20 rectal ca; PHH, HX OF RECTAL CA Technique: CT ChestAbdPelvis w con; Multiple axial images were obtained. Two-dimensional coronal and sagittal reconstructions were obtained. Contrast used:100 ML mL of Isovue 300 with IV Contrast, (None if empty) Oral contrast used: with Oral Contrast CT DLP: 1748.9 mGycm, Automated exposure control for dose reduction was used. Findings: CHEST: LUNGS/ PLEURA: No focal consolidation, pneumothorax or pleural effusion. Scattered thin-walled cysts throughout the lungs. Paraseptal and centrilobular emphysema changes. AIRWAY: Patent and unremarkable. HEART: Size within normal limits. No significant coronary artery calcifications. MEDIASTINUM: No gross evidence of adenopathy. VASCULATURE: No aortic aneurysm. Right chest wall [id number] with tip terminating in the superior vena cava. MUSCULOSKELETAL: No acute osseous abnormalities. Sternotomy wires are present. SOFT TISSUES/LYMPH NODES: Unremarkable. LOWER NECK: No significant findings. ABDOMEN: ABDOMEN LIVER: Unremarkable GALLBLADDER AND BILE DUCTS: Unremarkable. PANCREAS: Unremarkable. SPLEEN: Unremarkable. ADRENAL GLANDS: Unremarkable. KIDNEYS AND URETERS: No evidence of hydronephrosis or obstructing renal calculus. The ureters are unr emarkable. Nonobstructing right renal calculus measuring 5 mm. Nonobstructing left 3 mm calculus. PELVIS BLADDER: Unremarkable REPRODUCTIVE: Unremarkable. ABDOMEN & PELVIS STOMACH AND BOWEL: No evidence of bowel obstruction. The appendix is normal. Postsurgical changes to the rectum. Morphology of the rectum is relatively similar to prior. Post surgical changes to the bow el in the right lower abdomen. PERITONEUM/RETROPERITONEUM: No evidence of pneumoperitoneum or free fluid. VASCULATURE: No evidence of aortic aneurysm. MUSCULOSKELETAL: No acute osseous abnormalities LYMPH NODES: No gross evidence for lymphadenopathy. SOFT TISSUE/ABDOMINAL WALL: Fat-containing umbilical hernia. Right lateral ventral wall fat-containin g hernia. IMPRESSION: Similar postsurgical changes of the bowel and rectum. No new or enlarging lymph nodes or evidence for new mass. [facility], , 10/12/2024 3:00 PM
== END | disposition home or self-care (01) ==
LOC: RADCTMAIN 09:07
PROVIDERS: ATTEND Internal Medicine Hematology & Oncology
DX: C20 Malignant neoplasm of rectum (principal); G62.0 Drug-induced polyneuropathy; R21 Rash and other nonspecific skin eruption; I10 Essential (primary) hypertension; Z98.890 Other specified postprocedural states
CPT/HCPCS: 71260; 74177; Q9967

== ENCOUNTER 2025-01-02 11:16 | Day surgery (SDC) | payer MEDICARE ==
[2024-12-12 14:08] VITALS: BMI 30.2
[~2025-01-02 11:16] MED LIST changes: -ALPRAZolam 0.25 MG TAB PO PRN; -ALPRAZolam 0.5 MG TAB PO PRN; +HEPARIN SODIUM,PORCINE 5,000 UNIT/ML 1 ML VIAL SQ PRN; +LACTATED RINGERS 1,000 ML IV SCH; -NITROGLYCERIN SL TABS 0.4 MG TAB SUBLINGUAL PRN; +ceFAZolin 2 GM in DEXTROSE 5% IN WATER 50 ML IVPB PRN; +fentaNYL (PF) 50 MCG/ML 2 ML AMP IV PRN
[2025-01-02] MEDS: LACTATED RINGERS 1,000 ML IV SCH (12:15)
[2025-01-02] MEDS: LIDOCAINE 1% (10MG/ML) FOR IV START INTRADERMA STA (12:15)
[2025-01-02] MEDS: IV FLUID CONTINUATION 1,000 ML IV ONE (12:15)
[2025-01-02] MEDS: DEXAMETHASONE SOD PHOSPHATE 4 MG/ML 1 ML VIAL IV ONE (12:32)
[2025-01-02] MEDS: ONDANSETRON 4 MG/2 ML VIAL IVP ONE (12:32)
[2025-01-02 12:33] LABS: Basophils # (A) 0.04 10*3/uL (0.00-0.10); Basophils % (A) 0.5 %; Eosinophils # (A) 0.29 10*3/uL (0.04-0.35); Eosinophils % (A) 3.9 %; HCT 45.1 % (39.6-50.0); HGB 15.5 g/dL (13.0-17.0); Lymphocytes # (A) 1.46 10*3/uL (0.90-5.00); Lymphocytes % (A) 19.8 %; MCH 32.8 pg (27.0-32.0); MCHC 34.4 g/dL (32.0-37.0); MCV 95.6 fL (80.0-97.0); Mean Platelet Volume 8.9 fL (9.5-12.2); Monocytes # (A) 0.49 10*3/uL (0.20-1.00); Monocytes % (A) 6.6 %; Neutrophils % (A) 69.1 %; Platelet Count 244 10*3/uL (140-440); RBC 4.72 10*6/uL (4.40-5.60); RDW 13.6 % (11.5-14.5); WBC 7.39 10*3/uL (4.50-10.00)
[2025-01-02] MEDS: MIDAZOLAM 2 MG/2 ML VIAL IV ONE (12:49)
[2025-01-02] MEDS: HEPARIN SODIUM,PORCINE 5,000 UNIT/ML 1 ML VIAL SQ PRN (12:58)
[2025-01-02] MEDS ORDERED: HYDROmorphone (PF) 1 MG/ML ONE (13:21)
[2025-01-02] MEDS ORDERED: ETOMIDATE 2 MG/ML 10 ML VIAL ONE (13:21)
[2025-01-02] MEDS ORDERED: fentaNYL (PF) 50 MCG/ML 2 ML AMP ONE (13:21)
[2025-01-02] MEDS ORDERED: DEXAMETHASONE SOD PHOSPHATE 4 MG/ML 1 ML VIAL ONE (13:21)
[2025-01-02] MEDS ORDERED: GLYCOPYRROLATE 0.2 MG/ML 2 ML VIAL ONE (13:21)
[2025-01-02] MEDS ORDERED: NEOSTIGMINE 1 MG/ML 10 ML VIAL ONE (13:21)
[2025-01-02] MEDS ORDERED: ROCURONIUM 10 MG/ML (5 ML VIAL) IV ONE (13:21)
[2025-01-02] MEDS ORDERED: LIDOCAINE 1% INJ 10MG/ML (20 ML MDV) ONE (13:21)
[2025-01-02] MEDS ORDERED: SUCCINYLCHOLINE CHLORIDE 200 MG/10 ML VIAL IV ONE (13:21)
[2025-01-02] MEDS ORDERED: ROPIVACAINE 5 MG/ML 30 ML VIAL ONE (13:21)
[2025-01-02] MEDS: ceFAZolin 2 GM in DEXTROSE 5% IN WATER 50 ML IVPB PRN (13:26)
[2025-01-02] MEDS: LIDOCAINE 1%-EPI 1:100,000 20 ML VIAL SQ ONE (13:48)
[2025-01-02] MEDS: LACTATED RINGERS 1,000 ML IV ONE (14:27)
[2025-01-02 15:12] VITALS: TEMP 96.9
[2025-01-02] MEDS: HYDROmorphone 0.5 MG/0.5 ML SYRINGE IVP PRN (15:33)
[2025-01-02] MEDS: HYDROcodone/APAP 10-325MG 1 EACH TAB PO ONE (16:08)
[2025-01-02 17:30] VITALS: BP 110/78
[2025-01-02 17:31] VITALS: PULSE 69; RESP 18
--- NOTE | 2025-01-02 20:10 | P.OP ---
Date of Procedure: 01/02/25 Preoperative Diagnosis: Incisional hernia Postoperative Diagnosis: Incisional hernia 3 x 4 cm Umbilical hernia 2 x 2 cm Procedure(s) Performed: Robotic repair of incisional and umbilical hernias, with mesh placement Anesthesia: DALE Surgeon: Gini Verdugo Pathology: none sent Condition: stable Disposition: same day Indications for Procedure: 54-year-old male presented to the surgery clinic with complaint of hernia at site of previous ostomy. This has become larger and more painful for the patient. Plan is for repair of this incisional hernia. Risks, benefits and alternatives were provided to the patient. He did receive cardiac risk stratification prior to the procedure. Risks, benefits and alternatives were provided to the patient. All questions answered. Operative Findings: Incisional hernia measuring 3 x 4 cm Umbilical hernia measuring 2 x 2 cm Description of Procedure: The patient was brought to the operating room and placed in supine position. General anesthesia with endotracheal intubation was performed as per anesthesia team. Chlorhexidine was used to prep the skin followed by application of sterile drapes and a timeout was performed to verify correct patient and correct procedure. Patient was confirmed to receive perioperative IV antibiotics, bilateral SCDs and 5000 units of subcutaneous heparin for VTE prophylaxis. A 5 mm skin incision was made along the left mid axillary line at May's point and the abdomen was entered under direct visualization using a Visiport. Pneumoperitoneum was achieved. 2 hernias were immediately noted with mild incarceration of omentum. The initial incisional hernia was noted and measured about 3 x 4 cm. Medial to this was a umbilical hernia measuring 2 x 2 cm. The distance between these 2 hernias was about 4 cm. Decision was made to close both defects and repair both with IPOM approach using 1 large mesh.. An additional 8 mm trocar was placed in the left lower abdomen and an 8 mm trocar was placed in the left mid abdomen. The initial 5 mm trocar was upsized to an 8 mm trocar. The [email or web address] robot was then docked. The 30 degree robotic camera was used. Robotic instruments were inserted. The falciform ligament was divided using monopolar scissors close to the anterior abdominal wall to create a landing zone for the mesh. A ventralight oval mesh was placed and introduced into the abdominal cavity. The mesh measured [id number] in diameter. The hernia defects were then closed primarily with running sutures using 1-0 strata fix by taking 1 cm bite on the fascia on either side of the defect. A Alcon Pina device was inserted between the hernia defects and the stay suture on the mesh was grasped to elevate the mesh against the anterior abdominal wall. The mesh was then circumferentially sutured to the peritoneum of the anterior abdominal wall using 2 oh V-Loc without any folds or kinks. The robot was then undocked. Laparoscopic camera was inserted and all trocar sites were examined. No evidence of bleeding. The pneumoperitoneum was then evacuated and all skin incisions were closed using 4-0 Monocryl followed by Dermabond skin glue. Sponge and instrument and needle count were correct x 2. Abdominal binder was applied. The patient was extubated and taken to postanesthesia care unit in stable condition.
--- NOTE | 2025-01-03 13:42 | P.ANPRN ---
Procedure Note - Anesthesia - Nerve Block Performed Bilateral Rectus Abdominis Single Time Out Performed: Yes Date of Procedure: 01/02/25 Procedure Start Time: 12:49 Procedure Stop Time: 12:54 Location of Patient: PreOp Indication: Acute Post-Operative Pain, Requested by Surgeon Sedation Type: Sedate with meaningful contact maintained Preparation: Sterile Prep Position: Supine Needle Types: Pajunk Needle Gauge: 21 Ultrasound used to visualize needle placement: Yes Ultrasound used to observe medication spread: Yes Blood Aspirated: No Pain Paresthesia on Injection Noted: No Resistance on Injection: Normal Image Stored and Saved: Yes Events: Uneventful and Well Tolerated (Ropivacaine 0.5% 20 cc plus dexamethasone 4 mg given bilaterally)
== END 2025-01-02 17:49 | disposition home or self-care (01) ==
LOC: OR 11:16
PROVIDERS: ATTEND Surgery
DX: K43.0 Incisional hernia with obstruction, without gangrene (principal); K42.0 Umbilical hernia with obstruction, without gangrene; G89.18 Other acute postprocedural pain; I25.118 Atherosclerotic heart disease of native coronary artery with other forms of angina pectoris; I25.2 Old myocardial infarction; Z95.1 Presence of aortocoronary bypass graft; Z95.5 Presence of coronary angioplasty implant and graft; I10 Essential (primary) hypertension; E78.00 Pure hypercholesterolemia, unspecified; G47.33 Obstructive sleep apnea (adult) (pediatric); Z79.82 Long term (current) use of aspirin; Z79.899 Other long term (current) drug therapy
CPT/HCPCS: 49594; S2900; 64488; 85025